=== PATIENT | female | born 1970 | race Caucasian/White ===

== ENCOUNTER → 2018-09-03 08:49 | Outpatient (CLI) | payer OTHER, MEDICAID, SELFPAY ==
[2018-09-03 09:44] LABS: Hemoglobin A1C% w Est Avg Glu 8.9 % (4.0-6.0)
[2018-09-03 09:57] LABS: Alanine Aminotransferase 53 IU/L (9-52); Albumin 4.5 g/dL (3.5-5.0); Albumin Globulin Ratio 1.5 (1.0-2.8); Alkaline Phosphatase 77 U/L (38-126); Aspartate Aminotransferase 30 IU/L (14-36); Bilirubin Total 0.5 mg/dL (0.2-1.3); Blood Urea Nitrogen 14 mg/dL (7-17); Calcium 9.9 mg/dL (8.4-10.2); Carbon Dioxide 26 mmol/L (22-32); Chloride 101 mmol/L (98-107); Cholesterol 250 mg/dL (140-199); Estimated Glomerular Filt Rate > 60.0 mL/min (>60); Globulin 3.1 g/dL (1.7-4.1); Glucose 228 mg/dL (70-100); HDL Cholesterol 41 mg/dL (40-60); HEMOLYSIS < 15 (0-50); LDL Cholesterol Calculated 173 mg/dL (<100); Potassium 4.5 mmol/L (3.4-5.1); Sodium 138 mmol/L (137-145); Total Protein 7.6 g/dL (6.3-8.2); Triglycerides 179 mg/dL (35-150)
[2018-09-03 09:59] LABS: Creatinine Urine Random 183.1 mg/dL
[2018-09-03 10:04] LABS: Microalbumi Creatinin Ratio Ur 31.6 ug/mg CR (<30); Microalbumin Urine Random 5.8 mg/dL (0-1.6)
== END ==
PROVIDERS: PCP Family Medicine; Visit Provider Family Medicine
DX: E11.9 Type 2 diabetes mellitus without complications (principal); E78.5 Hyperlipidemia, unspecified
CPT/HCPCS: 36415; 80053; 80061; 82043; 82570; 83036

== ENCOUNTER 2018-11-11 15:15 | Outpatient (RCR) | payer OTHER, MEDICAID, SELFPAY ==
--- NOTE | 2018-10-07 12:10 | PT.OIE ---
Current Diagnoses Pain in right shoulder (10/07/18) Pain in left shoulder (10/07/18) Strain of muscle(s) and tendon(s) of the rotator cuff of left shoulder, initial encounter (10/07/18) Past Surgical History Status post arthroscopy Status post arthroscopy Status post delivery (09/14/02) Status post delivery (01/12/08) Status post laparoscopic cholecystectomy Status post tubal ligation (11/19/13) Provider Visit Care Team Role Provider Type Heidy Chand MD Attending Provider Physician Primary Care Provider Specialty: Family Practice Address: [address] [place] [address], [facility] Email: [email or web address] Physical Therapy Initial Evaluation PT-OP-A Visit Information Start: 10/07/18 07:31 Freq: Status: Active Protocol: Document 10/07/18 08:20 BS (Rec: 10/07/18 08:16 BS [id number]) Out-Patient Physical Therapy Visit Information Visit Information Visit Type Initial Evaluation Visit Start Time 07:30 Visit Stop Time 08:20 Total Visit Minutes 50 Visit Number 1 Number of [employer] WORKER Visits 0 Evaluation Information Evaluation Date 10/07/18 PT-OP-B Current Condition Start: 10/07/18 07:31 Freq: Status: Active Protocol: Document 10/07/18 08:20 BS (Rec: 10/07/18 07:38 BS [id number]) Current Condition History of Current Condition Onset Date 05/2018 History of Current Condition Pt complains of B anterior shoulder pain with insidious onset that began May 2018 . It began with just L shoulder pain, but pt's R shoulder has begun to hurt in the last 2 months. Pt denies a specific event that caused her pain and initially thought it was due to her bed and sleeping position. Pt has since purchased a new bed and has not had any relief in shoulder pain. Pt denies numbness/tingling in her UEs but states that she has had R carpal tunnel in the past. She states that her pain is greatest with shoulder OH motions and that she prefers to sleep on her L side, which increases her pain. Pt uses homeopathic creams and icy hot on her shoulders before bed, which helps her sleep at night . 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 Pt is R hand dominant. Prior Treatments and Tests No previous injuries to shoulder. Future Testing and Treatments Planned Pt is having R meniscal repair 10/16/18. Treatment Goals Patient/Caregiver Goals reduce pain Prior Functional Status Baseline Function- ADL's Independent Baseline Function- Mobility Independent Baseline Function- Gait Independent without use of AD Baseline Function- Work/School Independent Baseline Function- Recreation/Hobbies Independent with all daily and recreational activities. Baseline Function- Other Independent Current Functional Impairments (Reported) Functional Limitations- ADL's Pt reports she has difficulty sleeping, washing hair, and performing any activities that require OH movement of shoulders due to pain. Functional Limitations- Mobility/Gait No reported limitations with gait. Pain and shoulder weakness with OH shoulder mobility. Functional Limitations- Work/School Pt denies difficulty performing job requirements due to L shoulder pain. Functional Limitations- Recreation/ Limitations in completing Hobbies ground hand that require OH reaching or lifting objects . Functional Limitations- Other sleeping, ground hand, carrying a shopping bag. Pt reports she is unable to perform recreational activities that require use of LUE OH. Personal Factors Other Personal Factors That May Effect DM type II Therapy/Recovery PT-OP-C Subjective Start: 10/07/18 07:31 Freq: Status: Active Protocol: Document 10/07/18 08:20 BS (Rec: 10/07/18 08:35 BS [id number]) OP-PT Subjective Patient Comments Patient Comments Pain in B shoulders, initially began with just L shoulder and has recently noticed R shoulder pain. Gradually worsened since 2018. Patient Reported Progress Worse PT-OP-E Functional Tests Start: 10/07/18 07:31 Freq: Status: Active Protocol: Document 10/07/18 08:20 BS (Rec: 10/07/18 08:58 BS [id number]) Functional Tests Apley's Scratch Test Action 1: The subject is instructed to touch the opposite shoulder with his/her hand. This motion checks Glenohumeral adduction, internal rotation , horizontal adduction and scapular protraction Action 2: The subject is instructed to place his/her arm overhead and reach behind the neck to touch his/her upper back. This motion checks Glenohumeral abduction, external rotation and scapular upward rotation and elevation. Action 3: The subject puts his/her hand on the lower back and reaches upward as far as possible. This motion checks glenohumeral adduction, internal rotation and scapular retraction with downward rotation Action 1- Left + ant. shoulder pain Action 1- Right + ant. shoulder pain Action 2- Left + pain, T1 level Action 2- Right + pain, T4 level Action 3- Left + pain, T12 level Action 3- Right + pain, T10 level PT-OP-F Manual Assessment Start: 10/07/18 07:31 Freq: Status: Active Protocol: Document 10/07/18 08:20 BS (Rec: 10/07/18 08:58 BS [id number]) Manual Assessments Soft Tissue Assessment Soft Tissue Mobility Assessment Mod B upper trap tightness PT-OP-G Mobility & Gait Start: 10/07/18 07:31 Freq: Status: Active Protocol: Document 10/07/18 08:20 BS (Rec: 10/07/18 08:58 BS [id number]) OP Mobility Evaluation Bed Mobility Rolling Independent Supine to and from Sit Independent Transfers Sit to Stand Independent Bed to Chair Transfers Independent with use of B UEs Functional Movements Lifting and Carrying Independent, pt reports that she does have B shoulder pain with lifting and carrying heavy objects. PT-OP-J Posture/Palpation/Skin Start: 10/07/18 07:31 Freq: Status: Active Protocol: Document 10/07/18 08:20 BS (Rec: 10/07/18 08:58 BS [id number]) Posture Evaluation Position Sitting Evaluation View Anterior Head/C-Spine Posture Forward Head Shoulder Posture (L) Rounded (R) Rounded Palpation Assessment Location One Palpation Location Bicipital Tendon Bilaterally Palpation Findings Tenderness Palpation Details B periscapular musculature palpated with no reported tenderness. Supraspinatus tendon and RC muscles palpated with no pain or referral of pain. Pain with palpation to B bicpital tendons and anterior deltoid. Lateral and posterior deltoid palpation negative for pain reproduction . PT-OP-K Range of Motion Start: 10/07/18 07:31 Freq: Status: Active Protocol: Document 10/07/18 08:20 BS (Rec: 10/07/18 08:58 BS [id number]) Shoulder Goniometric Range of Motion Shoulder Measured in Degrees Right Active Testing Position Sitting Flexion 147 Abduction 124 External Rotation at 0 degrees Abduction 71 Internal Rotation Behind Back (text) T10 Left Active Shoulder ROM WFL No Testing Position Sitting Flexion 145 Abduction 115 External Rotation at 0 degrees Abduction 60 Internal Rotation Behind Back (text) T12 Shoulder ROM Limitations Shoulder ROM Limitations Pain Comments Pt B shoulder pain highly irritable with pain reproduction in all ROM testing positions. Elbow/Forearm Range of Motion Elbow/Forearm Measured in Degrees Right Active Elbow/Forearm ROM WFL Yes Left Active Elbow/Forearm ROM WFL Yes Elbow/Forearm ROM Limitations Comments Bilateral flexion, extension grossly WFL and pain-free. PT-OP-L Special Tests Start: 10/07/18 07:31 Freq: Status: Active Protocol: Document 10/07/18 08:20 BS (Rec: 10/07/18 08:58 BS [id number]) Special Tests Shoulder Special Tests Passive ER Rotator Cuff Test Results positive Comments Positive for anterior shoulder pain bilaterally at end range passive ER. L passive ER more limited than R. Speed's Biceps Test Results Negative Comments Strong and non-painful bilaterally. Soriano Raudel Impingement Test Results positive Comments painful to attain position, increased pain in posterior upper arm at end range of testing position with L shoulder. R shoulder painful to attain position. No increased pain during test. Neer Impingement Test Results positive Comments L shoulder painful arc 91-145 deg. R shoulder painful arc 95-147 deg. Empty Can Test Results positive Comments Anterior and lateral shoulder pain bilaterally with empty can testing. More pain with shoulder IR than with neutral position. PT-OP-M Strength Start: 10/07/18 07:31 Freq: Status: Active Protocol: Document 10/07/18 08:20 BS (Rec: 10/07/18 08:58 BS [id number]) Shoulder Strength Shoulder Manual Muscle Testing Right Flexion 4+ Good+ Abduction (C5) 4- Good- External Rotation 4+ Good+ Internal Rotation 4+ Good+ Comments MMT to RUE strong with reproduction of R anterior shoulder with with all MMT. Left Flexion 4+ Good+ Abduction (C5) 4- Good- External Rotation 4- Good- Internal Rotation 4+ Good+ Comments MMT to LUE strong with reproduction of L anterior shoulder with with all MMT. Elbow/Forearm Strength Elbow and Forearm Manual Muscle Testing Right Flexion (C6) 5 Normal Comments No pain Left Flexion (C6) 5 Normal Comments No pain. PT-OP-Q Treatments Start: 10/07/18 07:31 Freq: Status: Active Protocol: Document 10/07/18 08:20 BS (Rec: 10/07/18 08:58 BS [id number]) Therapeutic Exercises Standing Exercises 1 Standing Exercise Name Shoulder isometrics: flex, abd , ext Side left Reps/Minutes x10 PT-OP-R Modalities Start: 10/07/18 07:31 Freq: Status: Active Protocol: Document 10/07/18 08:20 BS (Rec: 10/07/18 08:58 BS [id number]) Hot Pack/Cold Pack Treatment Cold Pack Location B shoulders Patient Position Hooklying Treatment Duration (minutes) 10 Patient Tolerance Good Comments Pt reports less pain following CPs. PT-OP-T Assessment and Plan Start: 10/07/18 07:31 Freq: Status: Active Protocol: Document 10/07/18 08:20 BS (Rec: 10/07/18 08:16 BS [id number]) Physical Therapy Assessment Rehab Potential Rehabilitation Potential Good Evaluation Complexity Number of Personal Factors/Comorbidities 1-2 Number of Body Systems Impaired 1-2 Clinical Presentation at Evaluation Stable Impairments Impairments Activity Tolerance Functional Activities Functional Mobility Pain Posture ROM Soft Tissue Mobility Strength Other Concerns Barriers to Rehabilitation DM type II Goals Three Impairment Strength Wrist Closer Goal (LTG) Bilateral shoulder MMT for flexion, abduction, scaption, and ER/IR to be at least a 4+/ 5 and pain-free. LTG Duration 10 weeks Two Impairment Pain Short Term Goal (STG) Pt to report <4/10 L shoulder pain with flex, abd, ext isometrics, demonstrating reduction in irritability of symptoms. STG Duration functional mobility Wrist Closer Goal (LTG) Pt to report ability to hook/ unhook bra behind her back without B shoulder pain. LTG Duration 10 weeks One Impairment lack of HEP Short Term Goal (STG) Pt will be independent with a HEP to maximize rehabiliation potential outside of formal PT sessions. STG Duration 3 weeks Wrist Closer Goal (LTG) Bilateral shoulder flexion AROM to improve to at least 150 deg and pain-free so that Nilda is able to complete activtiies that require reaching OH. LTG Duration 10 weeks Assessment Summary Assessment Nilda is a 48 year old female who presents to PT with complaints of bilateral anterior shoulder pain that increases with OH shoulder movement. Patient's symptoms are highly irritable as of current, pain reproduction with all manual muscle testing and special tests for RC and subacromial impingement. Due to shoulder pain, pt has difficulty sleeping, lifting/ carring objects, and performing ADLs that require reaching and OH shoulder movements. Pt benefits from skilled physical therapy to reduce shoulder pain, strengthen the rotator cuff, and improve posture to promote return to PLOF without pain and weakness. Physical Therapy Plan Frequency and Duration Frequency of Treatment 1-2x/week Plan of Care Start Date 10/07/18 Plan of Care End Date 12/16/18 Therapeutic Interventions Therapeutic Interventions Home Exercise Program Manual Therapy Patient/Caregiver Education Self-Care/Home Management Soft Tissue Mobilization Taping Therapeutic Activities Therapeutic Exercises Modalities Cold Pack/Ice Massage Electric Stimulation Hot Packs Iontophoresis Ultrasound Next Visit Focus/Plan Next Note Type Treatment Note Next Visit Plan Begin with arm bike for cui, continue isometrics and light pain free resistance exercises as tolerated by pt.
--- NOTE | 2018-10-07 12:17 | PT.OPPOC ---
Current Diagnoses Pain in right shoulder (10/07/18) Pain in left shoulder (10/07/18) Strain of muscle(s) and tendon(s) of the rotator cuff of left shoulder, initial encounter (10/07/18) Provider Visit Care Team Role Provider Type Heidy Chand MD Attending Provider Physician Primary Care Provider Specialty: Family Practice Address: [address] [place] [address], [id number] Email: [email or web address] Plan Of Care PT-OP-T Assessment and Plan Start: 10/07/18 07:31 Freq: Status: Active Protocol: Document 10/07/18 08:20 BS (Rec: 10/07/18 08:16 BS [email or web address]) Physical Therapy Assessment Rehab Potential Rehabilitation Potential Good Evaluation Complexity Number of Personal Factors/Comorbidities 1-2 Number of Body Systems Impaired 1-2 Clinical Presentation at Evaluation Stable Impairments Impairments Activity Tolerance Functional Activities Functional Mobility Pain Posture ROM Soft Tissue Mobility Strength Other Concerns Barriers to Rehabilitation DM type II Goals Three Impairment Strength Senior Living Goal (LTG) Bilateral shoulder MMT for flexion, abduction, scaption, and ER/IR to be at least a 4+/ 5 and pain-free. LTG Duration 10 weeks Two Impairment Pain Short Term Goal (STG) Pt to report <4/10 L shoulder pain with flex, abd, ext isometrics, demonstrating reduction in irritability of symptoms. STG Duration functional mobility Senior Living Goal (LTG) Pt to report ability to hook/ unhook bra behind her back without B shoulder pain. LTG Duration 10 weeks One Impairment lack of HEP Short Term Goal (STG) Pt will be independent with a HEP to maximize rehabiliation potential outside of formal PT sessions. STG Duration 3 weeks Senior Living Goal (LTG) Bilateral shoulder flexion AROM to improve to at least 150 deg and pain-free so that Nilda is able to complete activtiies that require reaching OH. LTG Duration 10 weeks Assessment Summary Assessment Nilda is a 48 year old female who presents to PT with complaints of bilateral anterior shoulder pain that increases with OH shoulder movement. Patient's symptoms are highly irritable as of current, pain reproduction with all manual muscle testing and special tests for RC and subacromial impingement. Due to shoulder pain, pt has difficulty sleeping, lifting/ carring objects, and performing ADLs that require reaching and OH shoulder movements. Pt benefits from skilled physical therapy to reduce shoulder pain, strengthen the rotator cuff, and improve posture to promote return to PLOF without pain and weakness. Physical Therapy Plan Frequency and Duration Frequency of Treatment 1-2x/week Plan of Care Start Date 10/07/18 Plan of Care End Date 12/16/18 Therapeutic Interventions Therapeutic Interventions Home Exercise Program Manual Therapy Patient/Caregiver Education Self-Care/Home Management Soft Tissue Mobilization Taping Therapeutic Activities Therapeutic Exercises Modalities Cold Pack/Ice Massage Electric Stimulation Hot Packs Iontophoresis Ultrasound Next Visit Focus/Plan Next Note Type Treatment Note Next Visit Plan Begin with arm bike for cui, continue isometrics and light pain free resistance exercises as tolerated by pt. Plan of Care Dates Plan of Care Start Date 10/07/18 Plan of Care End Date 12/16/18 Please Sign and Return: I have reviewed this Plan of Care and certify that the skilled therapy services above are required to meet the patient?s needs. Physician Signature Date Printed Name and Credentials Clinical Instructor Signature Printed Name and Credentials
--- NOTE | 2018-10-13 15:40 | PT.OTN ---
Current Diagnoses Pain in left shoulder (10/13/18) Strain of muscle(s) and tendon(s) of the rotator cuff of left shoulder, initial encounter (10/13/18) Physical Therapy Treatment Note PT-OP-A Visit Information Start: 10/07/18 07:31 Freq: Status: Active Protocol: Document 10/13/18 08:15 BS (Rec: 10/13/18 07:41 BS [id number]) Out-Patient Physical Therapy Visit Information Visit Information Visit Type Treatment Note Visit Start Time 07:35 Visit Stop Time 08:15 Total Visit Minutes 40 Visit Number 2 Number of PARK INTERPRETIVE RANGER Visits 0 Evaluation Information Evaluation Date 10/07/18 PT-OP-B Current Condition Start: 10/07/18 07:31 Freq: Status: Active Protocol: Document 10/07/18 08:20 BS (Rec: 10/07/18 07:38 BS [id number]) Current Condition History of Current Condition Onset Date 05/2018 History of Current Condition Pt complains of B anterior shoulder pain with insidious onset that began May 2018 . It began with just L shoulder pain, but pt's R shoulder has begun to hurt in the last 2 months. Pt denies a specific event that caused her pain and initially thought it was due to her bed and sleeping position. Pt has since purchased a new bed and has not had any relief in shoulder pain. Pt denies numbness/tingling in her UEs but states that she has had R carpal tunnel in the past. She states that her pain is greatest with shoulder OH motions and that she prefers to sleep on her L side, which increases her pain. Pt uses homeopathic creams and icy hot on her shoulders before bed, which helps her sleep at night . 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 Pt is R hand dominant. Prior Treatments and Tests No previous injuries to shoulder. Future Testing and Treatments Planned Pt is having R meniscal repair 10/16/18. Treatment Goals Patient/Caregiver Goals reduce pain Prior Functional Status Baseline Function- ADL's Independent Baseline Function- Mobility Independent Baseline Function- Gait Independent without use of AD Baseline Function- Work/School Independent Baseline Function- Recreation/Hobbies Independent with all daily and recreational activities. Baseline Function- Other Independent Current Functional Impairments (Reported) Functional Limitations- ADL's Pt reports she has difficulty sleeping, washing hair, and performing any activities that require OH movement of shoulders due to pain. Functional Limitations- Mobility/Gait No reported limitations with gait. Pain and shoulder weakness with OH shoulder mobility. Functional Limitations- Work/School Pt denies difficulty performing job requirements due to L shoulder pain. Functional Limitations- Recreation/ Limitations in completing Hobbies medical csr that require OH reaching or lifting objects . Functional Limitations- Other sleeping, medical csr, carrying a shopping bag. Pt reports she is unable to perform recreational activities that require use of LUE OH. Personal Factors Other Personal Factors That May Effect DM type II Therapy/Recovery PT-OP-C Subjective Start: 10/07/18 07:31 Freq: Status: Active Protocol: Document 10/13/18 08:15 BS (Rec: 10/13/18 07:39 BS [id number]) OP-PT Subjective Patient Comments Patient Comments Pt reports that she was sore after IE and that she has been doing isometrics. Abduction is most painful but she is paying attention to her mechanics. PT-OP-E Functional Tests Start: 10/07/18 07:31 Freq: Status: Active Protocol: Document 10/07/18 08:20 BS (Rec: 10/07/18 08:58 BS [id number]) Functional Tests Apley's Scratch Test Action 1: The subject is instructed to touch the opposite shoulder with his/her hand. This motion checks Glenohumeral adduction, internal rotation , horizontal adduction and scapular protraction Action 2: The subject is instructed to place his/her arm overhead and reach behind the neck to touch his/her upper back. This motion checks Glenohumeral abduction, external rotation and scapular upward rotation and elevation. Action 3: The subject puts his/her hand on the lower back and reaches upward as far as possible. This motion checks glenohumeral adduction, internal rotation and scapular retraction with downward rotation Action 1- Left + ant. shoulder pain Action 1- Right + ant. shoulder pain Action 2- Left + pain, T1 level Action 2- Right + pain, T4 level Action 3- Left + pain, T12 level Action 3- Right + pain, T10 level PT-OP-F Manual Assessment Start: 10/07/18 07:31 Freq: Status: Active Protocol: Document 10/07/18 08:20 BS (Rec: 10/07/18 08:58 BS [id number]) Manual Assessments Soft Tissue Assessment Soft Tissue Mobility Assessment Mod B upper trap tightness PT-OP-G Mobility & Gait Start: 10/07/18 07:31 Freq: Status: Active Protocol: Document 10/07/18 08:20 BS (Rec: 10/07/18 08:58 BS [id number]) OP Mobility Evaluation Bed Mobility Rolling Independent Supine to and from Sit Independent Transfers Sit to Stand Independent Bed to Chair Transfers Independent with use of B UEs Functional Movements Lifting and Carrying Independent, pt reports that she does have B shoulder pain with lifting and carrying heavy objects. PT-OP-J Posture/Palpation/Skin Start: 10/07/18 07:31 Freq: Status: Active Protocol: Document 10/07/18 08:20 BS (Rec: 10/07/18 08:58 BS [id number]) Posture Evaluation Position Sitting Evaluation View Anterior Head/C-Spine Posture Forward Head Shoulder Posture (L) Rounded (R) Rounded Palpation Assessment Location One Palpation Location Bicipital Tendon Bilaterally Palpation Findings Tenderness Palpation Details B periscapular musculature palpated with no reported tenderness. Supraspinatus tendon and RC muscles palpated with no pain or referral of pain. Pain with palpation to B bicpital tendons and anterior deltoid. Lateral and posterior deltoid palpation negative for pain reproduction . PT-OP-K Range of Motion Start: 10/07/18 07:31 Freq: Status: Active Protocol: Document 10/07/18 08:20 BS (Rec: 10/07/18 08:58 BS [id number]) Shoulder Goniometric Range of Motion Shoulder Measured in Degrees Right Active Testing Position Sitting Flexion 147 Abduction 124 External Rotation at 0 degrees Abduction 71 Internal Rotation Behind Back (text) T10 Left Active Shoulder ROM WFL No Testing Position Sitting Flexion 145 Abduction 115 External Rotation at 0 degrees Abduction 60 Internal Rotation Behind Back (text) T12 Shoulder ROM Limitations Shoulder ROM Limitations Pain Comments Pt B shoulder pain highly irritable with pain reproduction in all ROM testing positions. Elbow/Forearm Range of Motion Elbow/Forearm Measured in Degrees Right Active Elbow/Forearm ROM WFL Yes Left Active Elbow/Forearm ROM WFL Yes Elbow/Forearm ROM Limitations Comments Bilateral flexion, extension grossly WFL and pain-free. PT-OP-L Special Tests Start: 04/24/19 07:31 Freq: Status: Active Protocol: Document 10/07/18 08:20 BS (Rec: 10/07/18 08:58 BS [id number]) Special Tests Shoulder Special Tests Passive ER Rotator Cuff Test Results positive Comments Positive for anterior shoulder pain bilaterally at end range passive ER. L passive ER more limited than R. Speed's Biceps Test Results Negative Comments Strong and non-painful bilaterally. Soriano Raudel Impingement Test Results positive Comments painful to attain position, increased pain in posterior upper arm at end range of testing position with L shoulder. R shoulder painful to attain position. No increased pain during test. Neer Impingement Test Results positive Comments L shoulder painful arc 91-145 deg. R shoulder painful arc 95-147 deg. Empty Can Test Results positive Comments Anterior and lateral shoulder pain bilaterally with empty can testing. More pain with shoulder IR than with neutral position. PT-OP-M Strength Start: 10/07/18 07:31 Freq: Status: Active Protocol: Document 10/07/18 08:20 BS (Rec: 10/07/18 08:58 BS [id number]) Shoulder Strength Shoulder Manual Muscle Testing Right Flexion 4+ Good+ Abduction (C5) 4- Good- External Rotation 4+ Good+ Internal Rotation 4+ Good+ Comments MMT to RUE strong with reproduction of R anterior shoulder with with all MMT. Left Flexion 4+ Good+ Abduction (C5) 4- Good- External Rotation 4- Good- Internal Rotation 4+ Good+ Comments MMT to LUE strong with reproduction of L anterior shoulder with with all MMT. Elbow/Forearm Strength Elbow and Forearm Manual Muscle Testing Right Flexion (C6) 5 Normal Comments No pain Left Flexion (C6) 5 Normal Comments No pain. PT-OP-Q Treatments Start: 10/07/18 07:31 Freq: Status: Active Protocol: Document 10/13/18 08:15 BS (Rec: 10/13/18 13:39 BS [id number]) Cardio Equipment Upper Body Ergometer (UBE) Duration (Minutes) 4 Seat Position 9 Height 2.5 Other 2' forward, 2' backward Therapeutic Exercises Supine Exercises 1 Supine Exercise Name Serratus Punches Resistance no weight Reps/Minutes 2x10 Comments VCs for technique, below 90 deg flex to avoid pain Standing Exercises 7 Standing Exercise Name Shoulder ball circles, CW/CCW Side left Equipment Used small ball, shld at 80 deg flex Reps/Minutes x20 each direction Comments light pressure into ball for protraction 6 Standing Exercise Name Lat pulldowns Side bilateral Equipment Used #1 band Reps/Minutes x15 5 Standing Exercise Name Scapular Retraction Side bilateral Equipment Used #1 band Reps/Minutes x15 Comments some L shoulder pain with this 4 Standing Exercise Name AROM B shld abduction to 90 deg Reps/Minutes x15 Comments VCs to remain in pain-free range 3 Standing Exercise Name Cane flex to 90 deg Reps/Minutes x15 Comments VCs to remain in pain-free range 2 Standing Exercise Name Wall walks Side left Reps/Minutes x12 Comments VCs to remain in pain-free range 1 Standing Exercise Name Shoulder isometrics: flex, abd , ext, ER, IR Side left Reps/Minutes x15 each, 5 hold PT-OP-R Modalities Start: 10/07/18 07:31 Freq: Status: Active Protocol: Document 10/13/18 08:15 BS (Rec: 10/13/18 13:39 BS [id number]) Hot Pack/Cold Pack Treatment Cold Pack Location L shoulder Patient Position Hooklying Treatment Duration (minutes) 10 Patient Tolerance Good Comments Pt reports less pain following CP. PT-OP-T Assessment and Plan Start: 10/07/18 07:31 Freq: Status: Active Protocol: Document 10/13/18 08:15 BS (Rec: 10/13/18 13:39 BS [email or web address]) Physical Therapy Assessment Assessment Summary Assessment Pt to PT today with less irritable symptoms than at IE. She tolerated light GH and postural strengthening exercises with little increase in pain levels. Both shoulders are symptomatic and will be treated. Physical Therapy Plan Next Visit Focus/Plan Next Note Type Treatment Note Next Visit Plan Continue with light GH and postural strengthening, both shoulders instead of just L. signed POC to treat both.
--- NOTE | 2018-10-15 14:47 | PT.OTN ---
Current Diagnoses Pain in left shoulder (10/15/18) Strain of muscle(s) and tendon(s) of the rotator cuff of left shoulder, initial encounter (10/15/18) Physical Therapy Treatment Note PT-OP-A Visit Information Start: 10/07/18 07:31 Freq: Status: Active Protocol: Document 10/15/18 09:09 BS (Rec: 10/15/18 09:46 BS [id number]) Out-Patient Physical Therapy Visit Information Visit Information Visit Type Treatment Note Visit Start Time 07:30 Visit Stop Time 08:25 Total Visit Minutes 55 Visit Number 3 Number of TERRITORY DEVELOPMENT MANAGER Visits 0 Evaluation Information Evaluation Date 10/07/18 PT-OP-B Current Condition Start: 10/07/18 07:31 Freq: Status: Active Protocol: Document 10/07/18 08:20 BS (Rec: 10/07/18 07:38 BS [id number]) Current Condition History of Current Condition Onset Date 05/2018 History of Current Condition Pt complains of B anterior shoulder pain with insidious onset that began May 2018 . It began with just L shoulder pain, but pt's R shoulder has begun to hurt in the last 2 months. Pt denies a specific event that caused her pain and initially thought it was due to her bed and sleeping position. Pt has since purchased a new bed and has not had any relief in shoulder pain. Pt denies numbness/tingling in her UEs but states that she has had R carpal tunnel in the past. She states that her pain is greatest with shoulder OH motions and that she prefers to sleep on her L side, which increases her pain. Pt uses homeopathic creams and icy hot on her shoulders before bed, which helps her sleep at night . 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 Pt is R hand dominant. Prior Treatments and Tests No previous injuries to shoulder. Future Testing and Treatments Planned Pt is having R meniscal repair 10/16/18. Treatment Goals Patient/Caregiver Goals reduce pain Prior Functional Status Baseline Function- ADL's Independent Baseline Function- Mobility Independent Baseline Function- Gait Independent without use of AD Baseline Function- Work/School Independent Baseline Function- Recreation/Hobbies Independent with all daily and recreational activities. Baseline Function- Other Independent Current Functional Impairments (Reported) Functional Limitations- ADL's Pt reports she has difficulty sleeping, washing hair, and performing any activities that require OH movement of shoulders due to pain. Functional Limitations- Mobility/Gait No reported limitations with gait. Pain and shoulder weakness with OH shoulder mobility. Functional Limitations- Work/School Pt denies difficulty performing job requirements due to L shoulder pain. 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 Pt reports she is unable to perform recreational activities that require use of LUE OH. Personal Factors Other Personal Factors That May Effect DM type II Therapy/Recovery PT-OP-C Subjective Start: 10/07/18 07:31 Freq: Status: Active Protocol: Document 10/15/18 09:09 BS (Rec: 10/15/18 09:46 BS [id number]) OP-PT Subjective Patient Comments Patient Comments Pt reports that she did have some residual muscle soreness following last session, lasted about a day. She is feeling better today. PT-OP-E Functional Tests Start: 10/07/18 07:31 Freq: Status: Active Protocol: Document 10/07/18 08:20 BS (Rec: 10/07/18 08:58 BS [id number]) Functional Tests Apley's Scratch Test Action 1: The subject is instructed to touch the opposite shoulder with his/her hand. This motion checks Glenohumeral adduction, internal rotation , horizontal adduction and scapular protraction Action 2: The subject is instructed to place his/her arm overhead and reach behind the neck to touch his/her upper back. This motion checks Glenohumeral abduction, external rotation and scapular upward rotation and elevation. Action 3: The subject puts his/her hand on the lower back and reaches upward as far as possible. This motion checks glenohumeral adduction, internal rotation and scapular retraction with downward rotation Action 1- Left + ant. shoulder pain Action 1- Right + ant. shoulder pain Action 2- Left + pain, T1 level Action 2- Right + pain, T4 level Action 3- Left + pain, T12 level Action 3- Right + pain, T10 level PT-OP-F Manual Assessment Start: 10/07/18 07:31 Freq: Status: Active Protocol: Document 10/07/18 08:20 BS (Rec: 10/07/18 08:58 BS [id number]) Manual Assessments Soft Tissue Assessment Soft Tissue Mobility Assessment Mod B upper trap tightness PT-OP-G Mobility & Gait Start: 10/07/18 07:31 Freq: Status: Active Protocol: Document 10/07/18 08:20 BS (Rec: 10/07/18 08:58 BS [id number]) OP Mobility Evaluation Bed Mobility Rolling Independent Supine to and from Sit Independent Transfers Sit to Stand Independent Bed to Chair Transfers Independent with use of B UEs Functional Movements Lifting and Carrying Independent, pt reports that she does have B shoulder pain with lifting and carrying heavy objects. PT-OP-J Posture/Palpation/Skin Start: 10/07/18 07:31 Freq: Status: Active Protocol: Document 10/07/18 08:20 BS (Rec: 10/07/18 08:58 BS [id number]) Posture Evaluation Position Sitting Evaluation View Anterior Head/C-Spine Posture Forward Head Shoulder Posture (L) Rounded (R) Rounded Palpation Assessment Location One Palpation Location Bicipital Tendon Bilaterally Palpation Findings Tenderness Palpation Details B periscapular musculature palpated with no reported tenderness. Supraspinatus tendon and RC muscles palpated with no pain or referral of pain. Pain with palpation to B bicpital tendons and anterior deltoid. Lateral and posterior deltoid palpation negative for pain reproduction . PT-OP-K Range of Motion Start: 10/07/18 07:31 Freq: Status: Active Protocol: Document 10/07/18 08:20 BS (Rec: 10/07/18 08:58 BS [id number]) Shoulder Goniometric Range of Motion Shoulder Measured in Degrees Right Active Testing Position Sitting Flexion 147 Abduction 124 External Rotation at 0 degrees Abduction 71 Internal Rotation Behind Back (text) T10 Left Active Shoulder ROM WFL No Testing Position Sitting Flexion 145 Abduction 115 External Rotation at 0 degrees Abduction 60 Internal Rotation Behind Back (text) T12 Shoulder ROM Limitations Shoulder ROM Limitations Pain Comments Pt B shoulder pain highly irritable with pain reproduction in all ROM testing positions. Elbow/Forearm Range of Motion Elbow/Forearm Measured in Degrees Right Active Elbow/Forearm ROM WFL Yes Left Active Elbow/Forearm ROM WFL Yes Elbow/Forearm ROM Limitations Comments Bilateral flexion, extension grossly WFL and pain-free. PT-OP-L Special Tests Start: 10/07/18 07:31 Freq: Status: Active Protocol: Document 10/07/18 08:20 BS (Rec: 10/07/18 08:58 BS [id number]) Special Tests Shoulder Special Tests Passive ER Rotator Cuff Test Results positive Comments Positive for anterior shoulder pain bilaterally at end range passive ER. L passive ER more limited than R. Speed's Biceps Test Results Negative Comments Strong and non-painful bilaterally. Soriano Raudel Impingement Test Results positive Comments painful to attain position, increased pain in posterior upper arm at end range of testing position with L shoulder. R shoulder painful to attain position. No increased pain during test. Neer Impingement Test Results positive Comments L shoulder painful arc 91-145 deg. R shoulder painful arc 95-147 deg. Empty Can Test Results positive Comments Anterior and lateral shoulder pain bilaterally with empty can testing. More pain with shoulder IR than with neutral position. PT-OP-M Strength Start: 10/07/18 07:31 Freq: Status: Active Protocol: Document 10/07/18 08:20 BS (Rec: 10/07/18 08:58 BS [id number]) Shoulder Strength Shoulder Manual Muscle Testing Right Flexion 4+ Good+ Abduction (C5) 4- Good- External Rotation 4+ Good+ Internal Rotation 4+ Good+ Comments MMT to RUE strong with reproduction of R anterior shoulder with with all MMT. Left Flexion 4+ Good+ Abduction (C5) 4- Good- External Rotation 4- Good- Internal Rotation 4+ Good+ Comments MMT to LUE strong with reproduction of L anterior shoulder with with all MMT. Elbow/Forearm Strength Elbow and Forearm Manual Muscle Testing Right Flexion (C6) 5 Normal Comments No pain Left Flexion (C6) 5 Normal Comments No pain. PT-OP-Q Treatments Start: 10/07/18 07:31 Freq: Status: Active Protocol: Document 10/15/18 09:09 BS (Rec: 10/15/18 10:01 BS [id number]) Cardio Equipment Upper Body Ergometer (UBE) Duration (Minutes) 4 Seat Position 9 Height 2.5 Other 2' forward, 2' backward Therapeutic Exercises Supine Exercises 1 Supine Exercise Name Serratus Punches Side bilateral Resistance no weight Reps/Minutes 2x10 Comments tolerated 90 deg flex position today Standing Exercises 8 Standing Exercise Name Scaption to 90 deg AROM Side bilateral Equipment Used no wt, 1# Reps/Minutes x10, x10 7 Standing Exercise Name Shoulder ball circles, CW/CCW Side bilateral Equipment Used small ball, shld at 80 deg flex Reps/Minutes x20 each direction Comments light pressure into ball for protraction 6 Standing Exercise Name Lat pulldowns Side bilateral Equipment Used #1 band Reps/Minutes 2x10 5 Standing Exercise Name Scapular Retraction Side bilateral Equipment Used #1 band Reps/Minutes x15 Comments some L shoulder pain with this 4 Standing Exercise Name AROM B shld abduction to 90 deg Equipment Used no weight, 1# Reps/Minutes x10, x10 Comments VCs to remain in pain-free range 3 Standing Exercise Name Cane flex to 90 deg Side bilateral Reps/Minutes x15 Comments pain free range 2 Standing Exercise Name Wall walks Side bilateral Reps/Minutes x12 Comments VCs to remain in pain-free range 1 Standing Exercise Name Shoulder isometrics: flex, abd , ext, ER, IR Side left Reps/Minutes x15 each, 5 hold PT-OP-R Modalities Start: 10/07/18 07:31 Freq: Status: Active Protocol: Document 10/15/18 09:09 BS (Rec: 10/15/18 13:06 BS [email or web address]) Hot Pack/Cold Pack Treatment Cold Pack Location B shoulders Patient Position Hooklying Treatment Duration (minutes) 10 Patient Tolerance Good Comments Pt continues to report benefits from CP at end of session. PT-OP-T Assessment and Plan Start: 10/07/18 07:31 Freq: Status: Active Protocol: Document 10/15/18 09:09 BS (Rec: 10/15/18 13:06 BS [email or web address]) Physical Therapy Assessment Assessment Summary Assessment Continued with pain free AROM and light strengthening for RC and postural muscles bilaterally. Will continue to progress as able. Pt has B shoulder pain with elevation > 90 deg. Physical Therapy Plan Next Visit Focus/Plan Next Note Type Treatment Note Next Visit Plan Progress strenthening as able, trial I, Y, T and sidelying ER next visit.
--- NOTE | 2018-10-21 15:31 | PT.OTN ---
Current Diagnoses Pain in left shoulder (10/21/18) Strain of muscle(s) and tendon(s) of the rotator cuff of left shoulder, initial encounter (10/21/18) Physical Therapy Treatment Note PT-OP-A Visit Information Start: 10/07/18 07:31 Freq: Status: Active Protocol: Document 10/21/18 14:30 BS (Rec: 10/21/18 14:41 BS [id number]) Out-Patient Physical Therapy Visit Information Visit Information Visit Type Treatment Note Visit Start Time 14:35 Visit Stop Time 15:25 Total Visit Minutes 50 Visit Number 4 Number of ASIAN [employer] CURATOR Visits 0 Evaluation Information Evaluation Date 10/07/18 PT-OP-B Current Condition Start: 10/07/18 07:31 Freq: Status: Active Protocol: Document 10/07/18 08:20 BS (Rec: 10/07/18 07:38 BS [id number]) Current Condition History of Current Condition Onset Date 05/2018 History of Current Condition Pt complains of B anterior shoulder pain with insidious onset that began May 2018 . It began with just L shoulder pain, but pt's R shoulder has begun to hurt in the last 2 months. Pt denies a specific event that caused her pain and initially thought it was due to her bed and sleeping position. Pt has since purchased a new bed and has not had any relief in shoulder pain. Pt denies numbness/tingling in her UEs but states that she has had R carpal tunnel in the past. She states that her pain is greatest with shoulder OH motions and that she prefers to sleep on her L side, which increases her pain. Pt uses homeopathic creams and icy hot on her shoulders before bed, which helps her sleep at night . 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 Pt is R hand dominant. Prior Treatments and Tests No previous injuries to shoulder. Future Testing and Treatments Planned Pt is having R meniscal repair 10/16/18. Treatment Goals Patient/Caregiver Goals reduce pain Prior Functional Status Baseline Function- ADL's Independent Baseline Function- Mobility Independent Baseline Function- Gait Independent without use of AD Baseline Function- Work/School Independent Baseline Function- Recreation/Hobbies Independent with all daily and recreational activities. Baseline Function- Other Independent Current Functional Impairments (Reported) Functional Limitations- ADL's Pt reports she has difficulty sleeping, washing hair, and performing any activities that require OH movement of shoulders due to pain. Functional Limitations- Mobility/Gait No reported limitations with gait. Pain and shoulder weakness with OH shoulder mobility. Functional Limitations- Work/School Pt denies difficulty performing job requirements due to L shoulder pain. 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 Pt reports she is unable to perform recreational activities that require use of LUE OH. Personal Factors Other Personal Factors That May Effect DM type II Therapy/Recovery PT-OP-C Subjective Start: 10/07/18 07:31 Freq: Status: Active Protocol: Document 10/21/18 14:30 BS (Rec: 10/21/18 14:41 BS [id number]) OP-PT Subjective Patient Comments Patient Comments Pt states that both shoulders have been really sore since last visit and continue to be today. She has been unable to pull shirt over her head to get dressed. Has been icing daily and cut back on reps of HEP. PT-OP-E Functional Tests Start: 10/07/18 07:31 Freq: Status: Active Protocol: Document 10/07/18 08:20 BS (Rec: 10/07/18 08:58 BS [id number]) Functional Tests Apley's Scratch Test Action 1: The subject is instructed to touch the opposite shoulder with his/her hand. This motion checks Glenohumeral adduction, internal rotation , horizontal adduction and scapular protraction Action 2: The subject is instructed to place his/her arm overhead and reach behind the neck to touch his/her upper back. This motion checks Glenohumeral abduction, external rotation and scapular upward rotation and elevation. Action 3: The subject puts his/her hand on the lower back and reaches upward as far as possible. This motion checks glenohumeral adduction, internal rotation and scapular retraction with downward rotation Action 1- Left + ant. shoulder pain Action 1- Right + ant. shoulder pain Action 2- Left + pain, T1 level Action 2- Right + pain, T4 level Action 3- Left + pain, T12 level Action 3- Right + pain, T10 level PT-OP-F Manual Assessment Start: 10/07/18 07:31 Freq: Status: Active Protocol: Document 10/07/18 08:20 BS (Rec: 10/07/18 08:58 BS [id number]) Manual Assessments Soft Tissue Assessment Soft Tissue Mobility Assessment Mod B upper trap tightness PT-OP-G Mobility & Gait Start: 10/07/18 07:31 Freq: Status: Active Protocol: Document 10/07/18 08:20 BS (Rec: 10/07/18 08:58 BS [id number]) OP Mobility Evaluation Bed Mobility Rolling Independent Supine to and from Sit Independent Transfers Sit to Stand Independent Bed to Chair Transfers Independent with use of B UEs Functional Movements Lifting and Carrying Independent, pt reports that she does have B shoulder pain with lifting and carrying heavy objects. PT-OP-J Posture/Palpation/Skin Start: 10/07/18 07:31 Freq: Status: Active Protocol: Document 10/07/18 08:20 BS (Rec: 10/07/18 08:58 BS [id number]) Posture Evaluation Position Sitting Evaluation View Anterior Head/C-Spine Posture Forward Head Shoulder Posture (L) Rounded (R) Rounded Palpation Assessment Location One Palpation Location Bicipital Tendon Bilaterally Palpation Findings Tenderness Palpation Details B periscapular musculature palpated with no reported tenderness. Supraspinatus tendon and RC muscles palpated with no pain or referral of pain. Pain with palpation to B bicpital tendons and anterior deltoid. Lateral and posterior deltoid palpation negative for pain reproduction . PT-OP-K Range of Motion Start: 10/07/18 07:31 Freq: Status: Active Protocol: Document 10/07/18 08:20 BS (Rec: 10/07/18 08:58 BS [id number]) Shoulder Goniometric Range of Motion Shoulder Measured in Degrees Right Active Testing Position Sitting Flexion 147 Abduction 124 External Rotation at 0 degrees Abduction 71 Internal Rotation Behind Back (text) T10 Left Active Shoulder ROM WFL No Testing Position Sitting Flexion 145 Abduction 115 External Rotation at 0 degrees Abduction 60 Internal Rotation Behind Back (text) T12 Shoulder ROM Limitations Shoulder ROM Limitations Pain Comments Pt B shoulder pain highly irritable with pain reproduction in all ROM testing positions. Elbow/Forearm Range of Motion Elbow/Forearm Measured in Degrees Right Active Elbow/Forearm ROM WFL Yes Left Active Elbow/Forearm ROM WFL Yes Elbow/Forearm ROM Limitations Comments Bilateral flexion, extension grossly WFL and pain-free. PT-OP-L Special Tests Start: 10/07/18 07:31 Freq: Status: Active Protocol: Document 10/07/18 08:20 BS (Rec: 10/07/18 08:58 BS [id number]) Special Tests Shoulder Special Tests Passive ER Rotator Cuff Test Results positive Comments Positive for anterior shoulder pain bilaterally at end range passive ER. L passive ER more limited than R. Speed's Biceps Test Results Negative Comments Strong and non-painful bilaterally. Soriano Raudel Impingement Test Results positive Comments painful to attain position, increased pain in posterior upper arm at end range of testing position with L shoulder. R shoulder painful to attain position. No increased pain during test. Neer Impingement Test Results positive Comments L shoulder painful arc 91-145 deg. R shoulder painful arc 95-147 deg. Empty Can Test Results positive Comments Anterior and lateral shoulder pain bilaterally with empty can testing. More pain with shoulder IR than with neutral position. PT-OP-M Strength Start: 10/07/18 07:31 Freq: Status: Active Protocol: Document 10/07/18 08:20 BS (Rec: 10/07/18 08:58 BS [id number]) Shoulder Strength Shoulder Manual Muscle Testing Right Flexion 4+ Good+ Abduction (C5) 4- Good- External Rotation 4+ Good+ Internal Rotation 4+ Good+ Comments MMT to RUE strong with reproduction of R anterior shoulder with with all MMT. Left Flexion 4+ Good+ Abduction (C5) 4- Good- External Rotation 4- Good- Internal Rotation 4+ Good+ Comments MMT to LUE strong with reproduction of L anterior shoulder with with all MMT. Elbow/Forearm Strength Elbow and Forearm Manual Muscle Testing Right Flexion (C6) 5 Normal Comments No pain Left Flexion (C6) 5 Normal Comments No pain. PT-OP-Q Treatments Start: 10/07/18 07:31 Freq: Status: Active Protocol: Document 10/21/18 14:30 BS (Rec: 10/21/18 15:25 BS [id number]) Cardio Equipment Upper Body Ergometer (UBE) Duration (Minutes) 4 Seat Position 9 Height 2.5 Other 2' forward, 2' backward Therapeutic Exercises Supine Exercises 1 Supine Exercise Name Serratus Punches Side left Resistance no weight Reps/Minutes x15 Comments @ 75 deg flexion. L only, R painful Prone Exercises 2 Prone Exercise Name Shoulder Extension Side bilateral Equipment Used 0#, 1# Reps/Minutes x12, x12 1 Prone Exercise Name Prone Rows Side bilateral Equipment Used 0#, 1# Reps/Minutes x12, x12 Standing Exercises 7 Standing Exercise Name Shoulder ball circles, CW/CCW Side bilateral Equipment Used small ball, shld at 80 deg flex Reps/Minutes x15 each direction Comments light pressure into ball for protraction 5 Standing Exercise Name Scapular Retraction Side bilateral Equipment Used no resistance today Reps/Minutes x15 3 Standing Exercise Name Cane flex to 90 deg Side bilateral Comments attempted, painful today bilaterally. 2 Standing Exercise Name Wall walks Side bilateral Reps/Minutes x10 each Comments painful beg. at 70 deg today 1 Standing Exercise Name Shoulder isometrics: flex/ER/ IR Side bilateral Equipment Used also with elbow flex isometric today Reps/Minutes x12 each Comments supine with manual resistance PT-OP-R Modalities Start: 10/07/18 07:31 Freq: Status: Active Protocol: Document 10/21/18 14:30 BS (Rec: 10/21/18 15:25 BS [id number]) Hot Pack/Cold Pack Treatment Cold Pack Location B shoulders Patient Position Hooklying Treatment Duration (minutes) 10 Patient Tolerance Good PT-OP-T Assessment and Plan Start: 10/07/18 07:31 Freq: Status: Active Protocol: Document 10/21/18 14:30 BS (Rec: 10/21/18 15:25 BS [id number]) Physical Therapy Assessment Assessment Summary Assessment Pt presents today with increased bilateral shoulder pain since last session, she has noticed increased muscle sorness too. Pt's symptoms irritable with AROM shoulder flex, abd, scaption. We did lighten up on GH and RC strengthening today to avoid increasing pain and soreness. Pt denied increase in pain with exercises completed today . We discussed possible use of electrical stimulation with CP if she is still in a lot of pain next session. Physical Therapy Plan Next Visit Focus/Plan Next Note Type Treatment Note Next Visit Plan Monitor B shoulder pain and continue with current POC, modifying as necessary to avoid increased pain. Possibly trial E-stim for pain reduction.
--- NOTE | 2018-10-28 12:33 | PT.OTN ---
Current Diagnoses Pain in left shoulder (10/28/18) Strain of muscle(s) and tendon(s) of the rotator cuff of left shoulder, initial encounter (10/28/18) Physical Therapy Treatment Note PT-OP-A Visit Information Start: 10/07/18 07:31 Freq: Status: Active Protocol: Document 10/28/18 09:08 EA (Rec: 10/28/18 09:10 EA [id number]) Out-Patient Physical Therapy Visit Information Visit Information Visit Type Treatment Note Visit Note Late of 15 mins today Visit Number 5 PT-OP-B Current Condition Start: 10/07/18 07:31 Freq: Status: Active Protocol: Document 10/07/18 08:20 BS (Rec: 10/07/18 07:38 BS [id number]) Current Condition History of Current Condition Onset Date 05/2018 History of Current Condition Pt complains of B anterior shoulder pain with insidious onset that began May 2018 . It began with just L shoulder pain, but pt's R shoulder has begun to hurt in the last 2 months. Pt denies a specific event that caused her pain and initially thought it was due to her bed and sleeping position. Pt has since purchased a new bed and has not had any relief in shoulder pain. Pt denies numbness/tingling in her UEs but states that she has had R carpal tunnel in the past. She states that her pain is greatest with shoulder OH motions and that she prefers to sleep on her L side, which increases her pain. Pt uses homeopathic creams and icy hot on her shoulders before bed, which helps her sleep at night . 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 Pt is R hand dominant. Prior Treatments and Tests No previous injuries to shoulder. Future Testing and Treatments Planned Pt is having R meniscal repair 10/16/18. Treatment Goals Patient/Caregiver Goals reduce pain Prior Functional Status Baseline Function- ADL's Independent Baseline Function- Mobility Independent Baseline Function- Gait Independent without use of AD Baseline Function- Work/School Independent Baseline Function- Recreation/Hobbies Independent with all daily and recreational activities. Baseline Function- Other Independent Current Functional Impairments (Reported) Functional Limitations- ADL's Pt reports she has difficulty sleeping, washing hair, and performing any activities that require OH movement of shoulders due to pain. Functional Limitations- Mobility/Gait No reported limitations with gait. Pain and shoulder weakness with OH shoulder mobility. Functional Limitations- Work/School Pt denies difficulty performing job requirements due to L shoulder pain. 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 Functional Limitations- Other sleeping, shipping inspector, carrying a shopping bag. Pt reports she is unable to perform recreational activities that require use of LUE OH. Personal Factors Other Personal Factors That May Effect DM type II Therapy/Recovery PT-OP-C Subjective Start: 10/07/18 07:31 Freq: Status: Active Protocol: Document 10/28/18 09:44 EA (Rec: 10/28/18 09:49 EA [id number]) OP-PT Subjective Patient Comments Patient Comments Pt reports underwent knee surgery 4 days ago and knee still hurts. Pt reports both shoulder still hurts PT-OP-E Functional Tests Start: 10/07/18 07:31 Freq: Status: Active Protocol: Document 10/07/18 08:20 BS (Rec: 10/07/18 08:58 BS [id number]) Functional Tests Apley's Scratch Test Action 1: The subject is instructed to touch the opposite shoulder with his/her hand. This motion checks Glenohumeral adduction, internal rotation , horizontal adduction and scapular protraction Action 2: The subject is instructed to place his/her arm overhead and reach behind the neck to touch his/her upper back. This motion checks Glenohumeral abduction, external rotation and scapular upward rotation and elevation. Action 3: The subject puts his/her hand on the lower back and reaches upward as far as possible. This motion checks glenohumeral adduction, internal rotation and scapular retraction with downward rotation Action 1- Left + ant. shoulder pain Action 1- Right + ant. shoulder pain Action 2- Left + pain, T1 level Action 2- Right + pain, T4 level Action 3- Left + pain, T12 level Action 3- Right + pain, T10 level PT-OP-F Manual Assessment Start: 10/07/18 07:31 Freq: Status: Active Protocol: Document 10/07/18 08:20 BS (Rec: 10/07/18 08:58 BS [id number]) Manual Assessments Soft Tissue Assessment Soft Tissue Mobility Assessment Mod B upper trap tightness PT-OP-G Mobility & Gait Start: 10/07/18 07:31 Freq: Status: Active Protocol: Document 10/07/18 08:20 BS (Rec: 10/07/18 08:58 BS [id number]) OP Mobility Evaluation Bed Mobility Rolling Independent Supine to and from Sit Independent Transfers Sit to Stand Independent Bed to Chair Transfers Independent with use of B UEs Functional Movements Lifting and Carrying Independent, pt reports that she does have B shoulder pain with lifting and carrying heavy objects. PT-OP-J Posture/Palpation/Skin Start: 10/07/18 07:31 Freq: Status: Active Protocol: Document 10/07/18 08:20 BS (Rec: 10/07/18 08:58 BS [id number]) Posture Evaluation Position Sitting Evaluation View Anterior Head/C-Spine Posture Forward Head Shoulder Posture (L) Rounded (R) Rounded Palpation Assessment Location One Palpation Location Bicipital Tendon Bilaterally Palpation Findings Tenderness Palpation Details B periscapular musculature palpated with no reported tenderness. Supraspinatus tendon and RC muscles palpated with no pain or referral of pain. Pain with palpation to B bicpital tendons and anterior deltoid. Lateral and posterior deltoid palpation negative for pain reproduction . PT-OP-K Range of Motion Start: 10/07/18 07:31 Freq: Status: Active Protocol: Document 10/07/18 08:20 BS (Rec: 10/07/18 08:58 BS [id number]) Shoulder Goniometric Range of Motion Shoulder Measured in Degrees Right Active Testing Position Sitting Flexion 147 Abduction 124 External Rotation at 0 degrees Abduction 71 Internal Rotation Behind Back (text) T10 Left Active Shoulder ROM WFL No Testing Position Sitting Flexion 145 Abduction 115 External Rotation at 0 degrees Abduction 60 Internal Rotation Behind Back (text) T12 Shoulder ROM Limitations Shoulder ROM Limitations Pain Comments Pt B shoulder pain highly irritable with pain reproduction in all ROM testing positions. Elbow/Forearm Range of Motion Elbow/Forearm Measured in Degrees Right Active Elbow/Forearm ROM WFL Yes Left Active Elbow/Forearm ROM WFL Yes Elbow/Forearm ROM Limitations Comments Bilateral flexion, extension grossly WFL and pain-free. PT-OP-L Special Tests Start: 10/07/18 07:31 Freq: Status: Active Protocol: Document 10/07/18 08:20 BS (Rec: 10/07/18 08:58 BS [id number]) Special Tests Shoulder Special Tests Passive ER Rotator Cuff Test Results positive Comments Positive for anterior shoulder pain bilaterally at end range passive ER. L passive ER more limited than R. Speed's Biceps Test Results Negative Comments Strong and non-painful bilaterally. Soriano Raudel Impingement Test Results positive Comments painful to attain position, increased pain in posterior upper arm at end range of testing position with L shoulder. R shoulder painful to attain position. No increased pain during test. Neer Impingement Test Results positive Comments L shoulder painful arc 91-145 deg. R shoulder painful arc 95-147 deg. Empty Can Test Results positive Comments Anterior and lateral shoulder pain bilaterally with empty can testing. More pain with shoulder IR than with neutral position. PT-OP-M Strength Start: 10/07/18 07:31 Freq: Status: Active Protocol: Document 10/07/18 08:20 BS (Rec: 10/07/18 08:58 BS [id number]) Shoulder Strength Shoulder Manual Muscle Testing Right Flexion 4+ Good+ Abduction (C5) 4- Good- External Rotation 4+ Good+ Internal Rotation 4+ Good+ Comments MMT to RUE strong with reproduction of R anterior shoulder with with all MMT. Left Flexion 4+ Good+ Abduction (C5) 4- Good- External Rotation 4- Good- Internal Rotation 4+ Good+ Comments MMT to LUE strong with reproduction of L anterior shoulder with with all MMT. Elbow/Forearm Strength Elbow and Forearm Manual Muscle Testing Right Flexion (C6) 5 Normal Comments No pain Left Flexion (C6) 5 Normal Comments No pain. PT-OP-Q Treatments Start: 10/07/18 07:31 Freq: Status: Active Protocol: Document 10/28/18 09:08 EA (Rec: 10/28/18 09:10 EA [id number]) Cardio Equipment Upper Body Ergometer (UBE) Duration (Minutes) 4 Seat Position 9 Height 2.5 Other 2' forward, 2' backward Therapeutic Exercises Supine Exercises 1 Supine Exercise Name Serratus Punches Side left Resistance no weight Reps/Minutes x15 Comments @ 75 deg flexion. L only, R painful Standing Exercises 8 Standing Exercise Name Scaption to 90 deg AROM Side bilateral Equipment Used no wt, 1# Reps/Minutes x10, x10 7 Standing Exercise Name Shoulder ball circles, CW/CCW Side bilateral Equipment Used small ball, shld at 80 deg flex Reps/Minutes x15 each direction Comments light pressure into ball for protraction 6 Standing Exercise Name Lat pulldowns Side bilateral Equipment Used #1 band Reps/Minutes 2x10 5 Standing Exercise Name Scapular Retraction Side bilateral Equipment Used no resistance today Reps/Minutes x15 4 Standing Exercise Name AROM B shld abduction to 90 deg Equipment Used no weight, 1# Reps/Minutes x10, x10 Comments VCs to remain in pain-free range 3 Standing Exercise Name Cane flex to 90 deg Side bilateral Comments attempted, painful today bilaterally. 2 Standing Exercise Name Wall walks Side bilateral Reps/Minutes x10 each Comments painful beg. at 70 deg today 1 Standing Exercise Name Shoulder isometrics: flex/ER/ IR Side bilateral Equipment Used also with elbow flex isometric today Reps/Minutes x12 each Comments supine with manual resistance PT-OP-R Modalities Start: 10/07/18 07:31 Freq: Status: Active Protocol: Document 10/28/18 10:34 EA (Rec: 10/28/18 10:35 EA [id number]) Electric Stimulation Electric Stimulation Interferential Current (IFC) Body Location both anterior shoulders Duration (Minutes) 15 Intensity 12 Contraction Type Normal Combined With Heat/Cold Cold Pack PT-OP-T Assessment and Plan Start: 10/07/18 07:31 Freq: Status: Active Protocol: Document 10/28/18 10:34 EA (Rec: 10/28/18 10:35 EA [id number]) Physical Therapy Assessment Assessment Summary Assessment Tolerated treatment well. Physical Therapy Plan Next Visit Focus/Plan Next Note Type Treatment Note Next Visit Plan Cont. current plan.
--- NOTE | 2018-10-30 08:11 | PT.OTN ---
Current Diagnoses Pain in left shoulder (10/30/18) Strain of muscle(s) and tendon(s) of the rotator cuff of left shoulder, initial encounter (10/30/18) Physical Therapy Treatment Note PT-OP-A Visit Information Start: 10/07/18 07:31 Freq: Status: Active Protocol: Document 10/30/18 08:05 SA (Rec: 10/30/18 08:11 SA [email or web address]) Out-Patient Physical Therapy Visit Information Visit Information Visit Type Treatment Note Visit Start Time 07:30 Visit Stop Time 08:16 Visit Number 6 Number of COMPUTER SECURITY COORDINATOR Visits 1 PT-OP-B Current Condition Start: 10/07/18 07:31 Freq: Status: Active Protocol: Document 10/07/18 08:20 BS (Rec: 10/07/18 07:38 BS [id number]) Current Condition History of Current Condition Onset Date 05/2018 History of Current Condition Pt complains of B anterior shoulder pain with insidious onset that began May 2018 . It began with just L shoulder pain, but pt's R shoulder has begun to hurt in the last 2 months. Pt denies a specific event that caused her pain and initially thought it was due to her bed and sleeping position. Pt has since purchased a new bed and has not had any relief in shoulder pain. Pt denies numbness/tingling in her UEs but states that she has had R carpal tunnel in the past. She states that her pain is greatest with shoulder OH motions and that she prefers to sleep on her L side, which increases her pain. Pt uses homeopathic creams and icy hot on her shoulders before bed, which helps her sleep at night . 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 Pt is R hand dominant. Prior Treatments and Tests No previous injuries to shoulder. Future Testing and Treatments Planned Pt is having R meniscal repair 10/16/18. Treatment Goals Patient/Caregiver Goals reduce pain Prior Functional Status Baseline Function- ADL's Independent Baseline Function- Mobility Independent Baseline Function- Gait Independent without use of AD Baseline Function- Work/School Independent Baseline Function- Recreation/Hobbies Independent with all daily and recreational activities. Baseline Function- Other Independent Current Functional Impairments (Reported) Functional Limitations- ADL's Pt reports she has difficulty sleeping, washing hair, and performing any activities that require OH movement of shoulders due to pain. Functional Limitations- Mobility/Gait No reported limitations with gait. Pain and shoulder weakness with OH shoulder mobility. Functional Limitations- Work/School Pt denies difficulty performing job requirements due to L shoulder pain. 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 Functional Limitations- Other sleeping, treasury assistant, carrying a shopping bag. Pt reports she is unable to perform recreational activities that require use of LUE OH. Personal Factors Other Personal Factors That May Effect DM type II Therapy/Recovery PT-OP-C Subjective Start: 10/07/18 07:31 Freq: Status: Active Protocol: Document 10/30/18 08:05 SA (Rec: 10/30/18 08:11 SA [id number]) OP-PT Subjective Patient Comments Patient Comments Pt states B shoulders feeling a little better, tolerating HEP. Improving standing tolerance with recent knee surgery. PT-OP-E Functional Tests Start: 10/07/18 07:31 Freq: Status: Active Protocol: Document 10/07/18 08:20 BS (Rec: 10/07/18 08:58 BS [id number]) Functional Tests Apley's Scratch Test Action 1: The subject is instructed to touch the opposite shoulder with his/her hand. This motion checks Glenohumeral adduction, internal rotation , horizontal adduction and scapular protraction Action 2: The subject is instructed to place his/her arm overhead and reach behind the neck to touch his/her upper back. This motion checks Glenohumeral abduction, external rotation and scapular upward rotation and elevation. Action 3: The subject puts his/her hand on the lower back and reaches upward as far as possible. This motion checks glenohumeral adduction, internal rotation and scapular retraction with downward rotation Action 1- Left + ant. shoulder pain Action 1- Right + ant. shoulder pain Action 2- Left + pain, T1 level Action 2- Right + pain, T4 level Action 3- Left + pain, T12 level Action 3- Right + pain, T10 level PT-OP-F Manual Assessment Start: 10/07/18 07:31 Freq: Status: Active Protocol: Document 10/07/18 08:20 BS (Rec: 10/07/18 08:58 BS [id number]) Manual Assessments Soft Tissue Assessment Soft Tissue Mobility Assessment Mod B upper trap tightness PT-OP-G Mobility & Gait Start: 10/07/18 07:31 Freq: Status: Active Protocol: Document 10/07/18 08:20 BS (Rec: 10/07/18 08:58 BS [id number]) OP Mobility Evaluation Bed Mobility Rolling Independent Supine to and from Sit Independent Transfers Sit to Stand Independent Bed to Chair Transfers Independent with use of B UEs Functional Movements Lifting and Carrying Independent, pt reports that she does have B shoulder pain with lifting and carrying heavy objects. PT-OP-J Posture/Palpation/Skin Start: 10/07/18 07:31 Freq: Status: Active Protocol: Document 10/07/18 08:20 BS (Rec: 10/07/18 08:58 BS [id number]) Posture Evaluation Position Sitting Evaluation View Anterior Head/C-Spine Posture Forward Head Shoulder Posture (L) Rounded (R) Rounded Palpation Assessment Location One Palpation Location Bicipital Tendon Bilaterally Palpation Findings Tenderness Palpation Details B periscapular musculature palpated with no reported tenderness. Supraspinatus tendon and RC muscles palpated with no pain or referral of pain. Pain with palpation to B bicpital tendons and anterior deltoid. Lateral and posterior deltoid palpation negative for pain reproduction . PT-OP-K Range of Motion Start: 10/07/18 07:31 Freq: Status: Active Protocol: Document 10/07/18 08:20 BS (Rec: 10/07/18 08:58 BS [id number]) Shoulder Goniometric Range of Motion Shoulder Measured in Degrees Right Active Testing Position Sitting Flexion 147 Abduction 124 External Rotation at 0 degrees Abduction 71 Internal Rotation Behind Back (text) T10 Left Active Shoulder ROM WFL No Testing Position Sitting Flexion 145 Abduction 115 External Rotation at 0 degrees Abduction 60 Internal Rotation Behind Back (text) T12 Shoulder ROM Limitations Shoulder ROM Limitations Pain Comments Pt B shoulder pain highly irritable with pain reproduction in all ROM testing positions. Elbow/Forearm Range of Motion Elbow/Forearm Measured in Degrees Right Active Elbow/Forearm ROM WFL Yes Left Active Elbow/Forearm ROM WFL Yes Elbow/Forearm ROM Limitations Comments Bilateral flexion, extension grossly WFL and pain-free. PT-OP-L Special Tests Start: 10/07/18 07:31 Freq: Status: Active Protocol: Document 10/07/18 08:20 BS (Rec: 10/07/18 08:58 BS [id number]) Special Tests Shoulder Special Tests Passive ER Rotator Cuff Test Results positive Comments Positive for anterior shoulder pain bilaterally at end range passive ER. L passive ER more limited than R. Speed's Biceps Test Results Negative Comments Strong and non-painful bilaterally. Soriano Raudel Impingement Test Results positive Comments painful to attain position, increased pain in posterior upper arm at end range of testing position with L shoulder. R shoulder painful to attain position. No increased pain during test. Neer Impingement Test Results positive Comments L shoulder painful arc 91-145 deg. R shoulder painful arc 95-147 deg. Empty Can Test Results positive Comments Anterior and lateral shoulder pain bilaterally with empty can testing. More pain with shoulder IR than with neutral position. PT-OP-M Strength Start: 10/07/18 07:31 Freq: Status: Active Protocol: Document 10/07/18 08:20 BS (Rec: 10/07/18 08:58 BS [id number]) Shoulder Strength Shoulder Manual Muscle Testing Right Flexion 4+ Good+ Abduction (C5) 4- Good- External Rotation 4+ Good+ Internal Rotation 4+ Good+ Comments MMT to RUE strong with reproduction of R anterior shoulder with with all MMT. Left Flexion 4+ Good+ Abduction (C5) 4- Good- External Rotation 4- Good- Internal Rotation 4+ Good+ Comments MMT to LUE strong with reproduction of L anterior shoulder with with all MMT. Elbow/Forearm Strength Elbow and Forearm Manual Muscle Testing Right Flexion (C6) 5 Normal Comments No pain Left Flexion (C6) 5 Normal Comments No pain. PT-OP-Q Treatments Start: 10/07/18 07:31 Freq: Status: Active Protocol: Document 10/30/18 08:05 SA (Rec: 10/30/18 08:11 SA [email or web address]) Cardio Equipment Upper Body Ergometer (UBE) Duration (Minutes) 4 RPM 60 Seat Position 9 Other 2' forward, 2' backward Therapeutic Exercises Supine Exercises 1 Supine Exercise Name Serratus Punches Side left Resistance no weight Reps/Minutes x15 Comments @ 75 deg flexion. L only, R painful Prone Exercises 2 Prone Exercise Name Shoulder Extension Side bilateral Equipment Used 0#, 1# Reps/Minutes x12, x12 Standing Exercises 8 Standing Exercise Name Scaption to 90 deg AROM Side bilateral Equipment Used no wt, 1# Reps/Minutes x10, x10 7 Standing Exercise Name Shoulder ball circles, CW/CCW Side bilateral Equipment Used small ball, shld at 80 deg flex Reps/Minutes x15 each direction Comments light pressure into ball for protraction 6 Standing Exercise Name Lat pulldowns Side bilateral Equipment Used #1 band Reps/Minutes 2x10 5 Standing Exercise Name Scapular Retraction Side bilateral Equipment Used #1 TB Reps/Minutes x15 4 Standing Exercise Name AROM B shld abduction to 90 deg Equipment Used no weight, 1# Reps/Minutes x10, x10 Comments VCs to remain in pain-free range 3 Standing Exercise Name Cane flex to 90 deg Side bilateral Comments did in supine 2 Standing Exercise Name Wall walks Side bilateral Reps/Minutes x10 each Comments painful beg. at 70 deg today 1 Standing Exercise Name Shoulder isometrics: flex/ER/ IR Side bilateral Equipment Used also with elbow flex isometric today Reps/Minutes x12 each Comments supine with manual resistance PT-OP-R Modalities Start: 10/07/18 07:31 Freq: Status: Active Protocol: Document 10/30/18 08:05 (Rec: 10/30/18 08:11 SA [email or web address]) Electric Stimulation Electric Stimulation Interferential Current (IFC) Body Location both anterior shoulders Duration (Minutes) 15 Intensity 12 Contraction Type Normal Combined With Heat/Cold Cold Pack Comments Pt reports relief with e-stim PT-OP-T Assessment and Plan Start: 10/07/18 07:31 Freq: Status: Active Protocol: Document 10/30/18 08:05 (Rec: 10/30/18 08:11 SA [email or web address]) Physical Therapy Assessment Assessment Summary Assessment Pt tolerating ther ex well today with no c/o pain. Consistent with HEP, improving postural awareness. Physical Therapy Plan Next Visit Focus/Plan Next Note Type Treatment Note Next Visit Plan Cont. current plan.
--- NOTE | 2018-11-05 08:16 | PT.OTN ---
Current Diagnoses Pain in left shoulder (11/04/18) Strain of muscle(s) and tendon(s) of the rotator cuff of left shoulder, initial encounter (11/04/18) Physical Therapy Treatment Note PT-OP-A Visit Information Start: 10/07/18 07:31 Freq: Status: Active Protocol: Document 11/04/18 17:39 EA (Rec: 11/04/18 17:42 EA [id number]) Out-Patient Physical Therapy Visit Information Visit Information Visit Start Time 16:00 Visit Stop Time 16:45 Visit Number 7 PT-OP-B Current Condition Start: 10/07/18 07:31 Freq: Status: Active Protocol: Document 10/07/18 08:20 BS (Rec: 10/07/18 07:38 BS [id number]) Current Condition History of Current Condition Onset Date 05/2018 History of Current Condition Pt complains of B anterior shoulder pain with insidious onset that began May 2018 . It began with just L shoulder pain, but pt's R shoulder has begun to hurt in the last 2 months. Pt denies a specific event that caused her pain and initially thought it was due to her bed and sleeping position. Pt has since purchased a new bed and has not had any relief in shoulder pain. Pt denies numbness/tingling in her UEs but states that she has had R carpal tunnel in the past. She states that her pain is greatest with shoulder OH motions and that she prefers to sleep on her L side, which increases her pain. Pt uses homeopathic creams and icy hot on her shoulders before bed, which helps her sleep at night . 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 Pt is R hand dominant. Prior Treatments and Tests No previous injuries to shoulder. Future Testing and Treatments Planned Pt is having R meniscal repair 10/16/18. Treatment Goals Patient/Caregiver Goals reduce pain Prior Functional Status Baseline Function- ADL's Independent Baseline Function- Mobility Independent Baseline Function- Gait Independent without use of AD Baseline Function- Work/School Independent Baseline Function- Recreation/Hobbies Independent with all daily and recreational activities. Baseline Function- Other Independent Current Functional Impairments (Reported) Functional Limitations- ADL's Pt reports she has difficulty sleeping, washing hair, and performing any activities that require OH movement of shoulders due to pain. Functional Limitations- Mobility/Gait No reported limitations with gait. Pain and shoulder weakness with OH shoulder mobility. Functional Limitations- Work/School Pt denies difficulty performing job requirements due to L shoulder pain. 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 Functional Limitations- Other sleeping, maintenance fitter, carrying a shopping bag. Pt reports she is unable to perform recreational activities that require use of LUE OH. Personal Factors Other Personal Factors That May Effect DM type II Therapy/Recovery PT-OP-C Subjective Start: 10/07/18 07:31 Freq: Status: Active Protocol: Document 11/04/18 17:39 EA (Rec: 11/04/18 17:42 EA [id number]) OP-PT Subjective Patient Comments Patient Comments Pt reports left shoulder a bit better than right. PT-OP-E Functional Tests Start: 10/07/18 07:31 Freq: Status: Active Protocol: Document 10/07/18 08:20 BS (Rec: 10/07/18 08:58 BS [id number]) Functional Tests Apley's Scratch Test Action 1: The subject is instructed to touch the opposite shoulder with his/her hand. This motion checks Glenohumeral adduction, internal rotation , horizontal adduction and scapular protraction Action 2: The subject is instructed to place his/her arm overhead and reach behind the neck to touch his/her upper back. This motion checks Glenohumeral abduction, external rotation and scapular upward rotation and elevation. Action 3: The subject puts his/her hand on the lower back and reaches upward as far as possible. This motion checks glenohumeral adduction, internal rotation and scapular retraction with downward rotation Action 1- Left + ant. shoulder pain Action 1- Right + ant. shoulder pain Action 2- Left + pain, T1 level Action 2- Right + pain, T4 level Action 3- Left + pain, T12 level Action 3- Right + pain, T10 level PT-OP-F Manual Assessment Start: 10/07/18 07:31 Freq: Status: Active Protocol: Document 10/07/18 08:20 BS (Rec: 10/07/18 08:58 BS [id number]) Manual Assessments Soft Tissue Assessment Soft Tissue Mobility Assessment Mod B upper trap tightness PT-OP-G Mobility & Gait Start: 10/07/18 07:31 Freq: Status: Active Protocol: Document 10/07/18 08:20 BS (Rec: 10/07/18 08:58 BS [id number]) OP Mobility Evaluation Bed Mobility Rolling Independent Supine to and from Sit Independent Transfers Sit to Stand Independent Bed to Chair Transfers Independent with use of B UEs Functional Movements Lifting and Carrying Independent, pt reports that she does have B shoulder pain with lifting and carrying heavy objects. PT-OP-J Posture/Palpation/Skin Start: 10/07/18 07:31 Freq: Status: Active Protocol: Document 10/07/18 08:20 BS (Rec: 10/07/18 08:58 BS [id number]) Posture Evaluation Position Sitting Evaluation View Anterior Head/C-Spine Posture Forward Head Shoulder Posture (L) Rounded (R) Rounded Palpation Assessment Location One Palpation Location Bicipital Tendon Bilaterally Palpation Findings Tenderness Palpation Details B periscapular musculature palpated with no reported tenderness. Supraspinatus tendon and RC muscles palpated with no pain or referral of pain. Pain with palpation to B bicpital tendons and anterior deltoid. Lateral and posterior deltoid palpation negative for pain reproduction . PT-OP-K Range of Motion Start: 10/07/18 07:31 Freq: Status: Active Protocol: Document 10/07/18 08:20 BS (Rec: 10/07/18 08:58 BS [id number]) Shoulder Goniometric Range of Motion Shoulder Measured in Degrees Right Active Testing Position Sitting Flexion 147 Abduction 124 External Rotation at 0 degrees Abduction 71 Internal Rotation Behind Back (text) T10 Left Active Shoulder ROM WFL No Testing Position Sitting Flexion 145 Abduction 115 External Rotation at 0 degrees Abduction 60 Internal Rotation Behind Back (text) T12 Shoulder ROM Limitations Shoulder ROM Limitations Pain Comments Pt B shoulder pain highly irritable with pain reproduction in all ROM testing positions. Elbow/Forearm Range of Motion Elbow/Forearm Measured in Degrees Right Active Elbow/Forearm ROM WFL Yes Left Active Elbow/Forearm ROM WFL Yes Elbow/Forearm ROM Limitations Comments Bilateral flexion, extension grossly WFL and pain-free. PT-OP-L Special Tests Start: 10/07/18 07:31 Freq: Status: Active Protocol: Document 10/07/18 08:20 BS (Rec: 10/07/18 08:58 BS [id number]) Special Tests Shoulder Special Tests Passive ER Rotator Cuff Test Results positive Comments Positive for anterior shoulder pain bilaterally at end range passive ER. L passive ER more limited than R. Speed's Biceps Test Results Negative Comments Strong and non-painful bilaterally. Soriano Raudel Impingement Test Results positive Comments painful to attain position, increased pain in posterior upper arm at end range of testing position with L shoulder. R shoulder painful to attain position. No increased pain during test. Neer Impingement Test Results positive Comments L shoulder painful arc 91-145 deg. R shoulder painful arc 95-147 deg. Empty Can Test Results positive Comments Anterior and lateral shoulder pain bilaterally with empty can testing. More pain with shoulder IR than with neutral position. PT-OP-M Strength Start: 10/07/18 07:31 Freq: Status: Active Protocol: Document 10/07/18 08:20 BS (Rec: 10/07/18 08:58 BS [id number]) Shoulder Strength Shoulder Manual Muscle Testing Right Flexion 4+ Good+ Abduction (C5) 4- Good- External Rotation 4+ Good+ Internal Rotation 4+ Good+ Comments MMT to RUE strong with reproduction of R anterior shoulder with with all MMT. Left Flexion 4+ Good+ Abduction (C5) 4- Good- External Rotation 4- Good- Internal Rotation 4+ Good+ Comments MMT to LUE strong with reproduction of L anterior shoulder with with all MMT. Elbow/Forearm Strength Elbow and Forearm Manual Muscle Testing Right Flexion (C6) 5 Normal Comments No pain Left Flexion (C6) 5 Normal Comments No pain. PT-OP-Q Treatments Start: 10/07/18 07:31 Freq: Status: Active Protocol: Document 11/04/18 17:39 EA (Rec: 11/04/18 17:42 EA [id number]) Cardio Equipment Upper Body Ergometer (UBE) Duration (Minutes) 4 RPM 60 Seat Position 9 Other 2' forward, 2' backward Therapeutic Exercises Supine Exercises 1 Supine Exercise Name Serratus Punches Side left Resistance no weight Reps/Minutes x15 Comments @ 75 deg flexion. L only, R painful Prone Exercises 2 Prone Exercise Name Shoulder Extension Side bilateral Equipment Used 0#, 1# Reps/Minutes x12, x12 1 Prone Exercise Name Prone Rows Side bilateral Equipment Used 0#, 1# Reps/Minutes x12, x12 Standing Exercises 8 Standing Exercise Name Scaption to 90 deg AROM Side bilateral Equipment Used no wt, 2# Reps/Minutes x10, x10 7 Standing Exercise Name Shoulder ball circles, CW/CCW Side bilateral Equipment Used small ball, shld at 80 deg flex Reps/Minutes x15 each direction Comments light pressure into ball for protraction 6 Standing Exercise Name Lat pulldowns Side bilateral Equipment Used #2 band Reps/Minutes 2x10 5 Standing Exercise Name Scapular Retraction Side bilateral Equipment Used #1 TB Reps/Minutes x15 4 Standing Exercise Name AROM B shld abduction to 90 deg Equipment Used no weight, 1# Reps/Minutes x10, x10 Comments VCs to remain in pain-free range 3 Standing Exercise Name Cane flex to 90 deg Side bilateral Comments did in supine 2 Standing Exercise Name Wall walks Side bilateral Reps/Minutes x10 each Comments painful beg. at 70 deg today 1 Standing Exercise Name Shoulder isometrics: flex/ER/ IR Side bilateral Equipment Used also with elbow flex isometric today Reps/Minutes x12 each Comments supine with manual resistance PT-OP-R Modalities Start: 10/07/18 07:31 Freq: Status: Active Protocol: Document 11/04/18 17:39 EA (Rec: 11/04/18 17:42 EA [id number]) Electric Stimulation Electric Stimulation Interferential Current (IFC) Body Location both anterior shoulders Duration (Minutes) 15 Intensity 12 Contraction Type Normal Combined With Heat/Cold Cold Pack Comments Pt reports relief with e-stim PT-OP-T Assessment and Plan Start: 10/07/18 07:31 Freq: Status: Active Protocol: Document 11/04/18 17:39 EA (Rec: 11/04/18 17:42 EA [id number]) Physical Therapy Assessment Assessment Summary Assessment Improved exercises tolerance with less discomfort at this time. Patient is progressing well. Physical Therapy Plan Next Visit Focus/Plan Next Note Type Treatment Note Next Visit Plan Cont. current plan.
--- NOTE | 2018-11-11 17:16 | PT.OTN ---
Current Diagnoses Pain in left shoulder (11/11/18) Strain of muscle(s) and tendon(s) of the rotator cuff of left shoulder, initial encounter (11/11/18) Physical Therapy Treatment Note PT-OP-A Visit Information Start: 10/07/18 07:31 Freq: Status: Active Protocol: Document 11/11/18 15:53 EA (Rec: 11/11/18 15:58 EA [id number]) Out-Patient Physical Therapy Visit Information Visit Information Visit Type Treatment Note Visit Start Time 16:00 Visit Stop Time 16:45 Visit Number 8 PT-OP-B Current Condition Start: 10/07/18 07:31 Freq: Status: Active Protocol: Document 10/07/18 08:20 BS (Rec: 10/07/18 07:38 BS [id number]) Current Condition History of Current Condition Onset Date 05/2018 History of Current Condition Pt complains of B anterior shoulder pain with insidious onset that began May 2018 . It began with just L shoulder pain, but pt's R shoulder has begun to hurt in the last 2 months. Pt denies a specific event that caused her pain and initially thought it was due to her bed and sleeping position. Pt has since purchased a new bed and has not had any relief in shoulder pain. Pt denies numbness/tingling in her UEs but states that she has had R carpal tunnel in the past. She states that her pain is greatest with shoulder OH motions and that she prefers to sleep on her L side, which increases her pain. Pt uses homeopathic creams and icy hot on her shoulders before bed, which helps her sleep at night . 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 Pt is R hand dominant. Prior Treatments and Tests No previous injuries to shoulder. Future Testing and Treatments Planned Pt is having R meniscal repair 10/16/18. Treatment Goals Patient/Caregiver Goals reduce pain Prior Functional Status Baseline Function- ADL's Independent Baseline Function- Mobility Independent Baseline Function- Gait Independent without use of AD Baseline Function- Work/School Independent Baseline Function- Recreation/Hobbies Independent with all daily and recreational activities. Baseline Function- Other Independent Current Functional Impairments (Reported) Functional Limitations- ADL's Pt reports she has difficulty sleeping, washing hair, and performing any activities that require OH movement of shoulders due to pain. Functional Limitations- Mobility/Gait No reported limitations with gait. Pain and shoulder weakness with OH shoulder mobility. Functional Limitations- Work/School Pt denies difficulty performing job requirements due to L shoulder pain. 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 Pt reports she is unable to perform recreational activities that require use of LUE OH. Personal Factors Other Personal Factors That May Effect DM type II Therapy/Recovery PT-OP-C Subjective Start: 10/07/18 07:31 Freq: Status: Active Protocol: Document 11/11/18 15:53 EA (Rec: 11/11/18 15:58 EA [id number]) OP-PT Subjective Patient Comments Patient Comments Pt reports that right shoulder is feeling much better; states left shoulder her lacked of sleep last night. PT-OP-E Functional Tests Start: 10/07/18 07:31 Freq: Status: Active Protocol: Document 10/07/18 08:20 BS (Rec: 10/07/18 08:58 BS [id number]) Functional Tests Apley's Scratch Test Action 1: The subject is instructed to touch the opposite shoulder with his/her hand. This motion checks Glenohumeral adduction, internal rotation , horizontal adduction and scapular protraction Action 2: The subject is instructed to place his/her arm overhead and reach behind the neck to touch his/her upper back. This motion checks Glenohumeral abduction, external rotation and scapular upward rotation and elevation. Action 3: The subject puts his/her hand on the lower back and reaches upward as far as possible. This motion checks glenohumeral adduction, internal rotation and scapular retraction with downward rotation Action 1- Left + ant. shoulder pain Action 1- Right + ant. shoulder pain Action 2- Left + pain, T1 level Action 2- Right + pain, T4 level Action 3- Left + pain, T12 level Action 3- Right + pain, T10 level PT-OP-F Manual Assessment Start: 10/07/18 07:31 Freq: Status: Active Protocol: Document 10/07/18 08:20 BS (Rec: 10/07/18 08:58 BS [id number]) Manual Assessments Soft Tissue Assessment Soft Tissue Mobility Assessment Mod B upper trap tightness PT-OP-G Mobility & Gait Start: 10/07/18 07:31 Freq: Status: Active Protocol: Document 10/07/18 08:20 BS (Rec: 10/07/18 08:58 BS [id number]) OP Mobility Evaluation Bed Mobility Rolling Independent Supine to and from Sit Independent Transfers Sit to Stand Independent Bed to Chair Transfers Independent with use of B UEs Functional Movements Lifting and Carrying Independent, pt reports that she does have B shoulder pain with lifting and carrying heavy objects. PT-OP-J Posture/Palpation/Skin Start: 10/07/18 07:31 Freq: Status: Active Protocol: Document 10/07/18 08:20 BS (Rec: 10/07/18 08:58 BS [id number]) Posture Evaluation Position Sitting Evaluation View Anterior Head/C-Spine Posture Forward Head Shoulder Posture (L) Rounded (R) Rounded Palpation Assessment Location One Palpation Location Bicipital Tendon Bilaterally Palpation Findings Tenderness Palpation Details B periscapular musculature palpated with no reported tenderness. Supraspinatus tendon and RC muscles palpated with no pain or referral of pain. Pain with palpation to B bicpital tendons and anterior deltoid. Lateral and posterior deltoid palpation negative for pain reproduction . PT-OP-K Range of Motion Start: 10/07/18 07:31 Freq: Status: Active Protocol: Document 10/07/18 08:20 BS (Rec: 10/07/18 08:58 BS [id number]) Shoulder Goniometric Range of Motion Shoulder Measured in Degrees Right Active Testing Position Sitting Flexion 147 Abduction 124 External Rotation at 0 degrees Abduction 71 Internal Rotation Behind Back (text) T10 Left Active Shoulder ROM WFL No Testing Position Sitting Flexion 145 Abduction 115 External Rotation at 0 degrees Abduction 60 Internal Rotation Behind Back (text) T12 Shoulder ROM Limitations Shoulder ROM Limitations Pain Comments Pt B shoulder pain highly irritable with pain reproduction in all ROM testing positions. Elbow/Forearm Range of Motion Elbow/Forearm Measured in Degrees Right Active Elbow/Forearm ROM WFL Yes Left Active Elbow/Forearm ROM WFL Yes Elbow/Forearm ROM Limitations Comments Bilateral flexion, extension grossly WFL and pain-free. PT-OP-L Special Tests Start: 10/07/18 07:31 Freq: Status: Active Protocol: Document 10/07/18 08:20 BS (Rec: 10/07/18 08:58 BS [id number]) Special Tests Shoulder Special Tests Passive ER Rotator Cuff Test Results positive Comments Positive for anterior shoulder pain bilaterally at end range passive ER. L passive ER more limited than R. Speed's Biceps Test Results Negative Comments Strong and non-painful bilaterally. Soriano Raudel Impingement Test Results positive Comments painful to attain position, increased pain in posterior upper arm at end range of testing position with L shoulder. R shoulder painful to attain position. No increased pain during test. Neer Impingement Test Results positive Comments L shoulder painful arc 91-145 deg. R shoulder painful arc 95-147 deg. Empty Can Test Results positive Comments Anterior and lateral shoulder pain bilaterally with empty can testing. More pain with shoulder IR than with neutral position. PT-OP-M Strength Start: 10/07/18 07:31 Freq: Status: Active Protocol: Document 10/07/18 08:20 BS (Rec: 10/07/18 08:58 BS [id number]) Shoulder Strength Shoulder Manual Muscle Testing Right Flexion 4+ Good+ Abduction (C5) 4- Good- External Rotation 4+ Good+ Internal Rotation 4+ Good+ Comments MMT to RUE strong with reproduction of R anterior shoulder with with all MMT. Left Flexion 4+ Good+ Abduction (C5) 4- Good- External Rotation 4- Good- Internal Rotation 4+ Good+ Comments MMT to LUE strong with reproduction of L anterior shoulder with with all MMT. Elbow/Forearm Strength Elbow and Forearm Manual Muscle Testing Right Flexion (C6) 5 Normal Comments No pain Left Flexion (C6) 5 Normal Comments No pain. PT-OP-Q Treatments Start: 10/07/18 07:31 Freq: Status: Active Protocol: Document 11/11/18 15:53 EA (Rec: 11/11/18 15:58 EA [id number]) Cardio Equipment Upper Body Ergometer (UBE) Duration (Minutes) 4 RPM 60 Seat Position 9 Other 2' forward, 2' backward Therapeutic Exercises Prone Exercises 2 Prone Exercise Name Shoulder Extension Side bilateral Equipment Used 0#, 1# Reps/Minutes x12, x12 Standing Exercises 5 Standing Exercise Name Scapular Retraction Side bilateral Equipment Used #1 TB Reps/Minutes x15 Manual Therapy Treatment Soft Tissue Mobilization 1 Body Location left shoulder Mobilization Type Cross-Friction Myofascial Release Rolling Sustained Pressure Intensity/Depth Moderate Body Position Supine Comments performed after US PT-OP-R Modalities Start: 10/07/18 07:31 Freq: Status: Active Protocol: Document 11/11/18 15:53 EA (Rec: 11/11/18 15:58 EA [id number]) Electric Stimulation Electric Stimulation Interferential Current (IFC) Body Location both anterior shoulders Duration (Minutes) 15 Intensity 12 Contraction Type Normal Combined With Heat/Cold Cold Pack Comments Pt reports relief with e-stim PT-OP-T Assessment and Plan Start: 10/07/18 07:31 Freq: Status: Active Protocol: Document 11/11/18 15:53 EA (Rec: 11/11/18 15:58 EA [id number]) Physical Therapy Assessment Assessment Summary Assessment Tolerated treatment well. Recommended to ICE shoulder 2 x /day and avoid extreme shoulder rotation and overhead activity. Physical Therapy Plan Next Visit Focus/Plan Next Note Type Treatment Note Next Visit Plan Cont. current plan.
--- NOTE | 2018-11-23 08:58 | PT.OPDS ---
Current Diagnoses Pain in left shoulder (11/11/18) Strain of muscle(s) and tendon(s) of the rotator cuff of left shoulder, initial encounter (11/11/18) Provider Visit Care Team Role Provider Type Heidy Chand MD Attending Provider Physician Primary Care Provider Specialty: Family Practice Address: [address] [place] [address], [id number] Email: [email or web address] Visit Number Visit Number 8 Discharge Summary PT-OP-B Current Condition Start: 10/07/18 07:31 Freq: Status: Active Protocol: Document 10/07/18 08:20 BS (Rec: 10/07/18 07:38 BS [id number]) Current Condition History of Current Condition Onset Date 05/2018 History of Current Condition Pt complains of B anterior shoulder pain with insidious onset that began May 2018 . It began with just L shoulder pain, but pt's R shoulder has begun to hurt in the last 2 months. Pt denies a specific event that caused her pain and initially thought it was due to her bed and sleeping position. Pt has since purchased a new bed and has not had any relief in shoulder pain. Pt denies numbness/tingling in her UEs but states that she has had R carpal tunnel in the past. She states that her pain is greatest with shoulder OH motions and that she prefers to sleep on her L side, which increases her pain. Pt uses homeopathic creams and icy hot on her shoulders before bed, which helps her sleep at night . 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 Pt is R hand dominant. Prior Treatments and Tests No previous injuries to shoulder. Future Testing and Treatments Planned Pt is having R meniscal repair 10/16/18. Treatment Goals Patient/Caregiver Goals reduce pain Prior Functional Status Baseline Function- ADL's Independent Baseline Function- Mobility Independent Baseline Function- Gait Independent without use of AD Baseline Function- Work/School Independent Baseline Function- Recreation/Hobbies Independent with all daily and recreational activities. Baseline Function- Other Independent Current Functional Impairments (Reported) Functional Limitations- ADL's Pt reports she has difficulty sleeping, washing hair, and performing any activities that require OH movement of shoulders due to pain. Functional Limitations- Mobility/Gait No reported limitations with gait. Pain and shoulder weakness with OH shoulder mobility. Functional Limitations- Work/School Pt denies difficulty performing job requirements due to L shoulder pain. Functional Limitations- Recreation/ Limitations in completing Hobbies community board member that require OH reaching or lifting objects . Functional Limitations- Other sleeping, community board member, carrying a shopping bag. Pt reports she is unable to perform recreational activities that require use of LUE OH. Personal Factors Other Personal Factors That May Effect DM type II Therapy/Recovery PT-OP-C Subjective Start: 10/07/18 07:31 Freq: Status: Active Protocol: Document 11/11/18 15:53 EA (Rec: 11/11/18 15:58 EA [id number]) OP-PT Subjective Patient Comments Patient Comments Pt reports that right shoulder is feeling much better; states left shoulder her lacked of sleep last night. PT-OP-E Functional Tests Start: 10/07/18 07:31 Freq: Status: Active Protocol: Document 10/07/18 08:20 BS (Rec: 10/07/18 08:58 BS [id number]) Functional Tests Apley's Scratch Test Action 1: The subject is instructed to touch the opposite shoulder with his/her hand. This motion checks Glenohumeral adduction, internal rotation , horizontal adduction and scapular protraction Action 2: The subject is instructed to place his/her arm overhead and reach behind the neck to touch his/her upper back. This motion checks Glenohumeral abduction, external rotation and scapular upward rotation and elevation. Action 3: The subject puts his/her hand on the lower back and reaches upward as far as possible. This motion checks glenohumeral adduction, internal rotation and scapular retraction with downward rotation Action 1- Left + ant. shoulder pain Action 1- Right + ant. shoulder pain Action 2- Left + pain, T1 level Action 2- Right + pain, T4 level Action 3- Left + pain, T12 level Action 3- Right + pain, T10 level PT-OP-F Manual Assessment Start: 10/07/18 07:31 Freq: Status: Active Protocol: Document 10/07/18 08:20 BS (Rec: 10/07/18 08:58 BS [id number]) Manual Assessments Soft Tissue Assessment Soft Tissue Mobility Assessment Mod B upper trap tightness PT-OP-G Mobility & Gait Start: 10/07/18 07:31 Freq: Status: Active Protocol: Document 10/07/18 08:20 BS (Rec: 10/07/18 08:58 BS [id number]) OP Mobility Evaluation Bed Mobility Rolling Independent Supine to and from Sit Independent Transfers Sit to Stand Independent Bed to Chair Transfers Independent with use of B UEs Functional Movements Lifting and Carrying Independent, pt reports that she does have B shoulder pain with lifting and carrying heavy objects. PT-OP-J Posture/Palpation/Skin Start: 10/07/18 07:31 Freq: Status: Active Protocol: Document 10/07/18 08:20 BS (Rec: 10/07/18 08:58 BS [id number]) Posture Evaluation Position Sitting Evaluation View Anterior Head/C-Spine Posture Forward Head Shoulder Posture (L) Rounded (R) Rounded Palpation Assessment Location One Palpation Location Bicipital Tendon Bilaterally Palpation Findings Tenderness Palpation Details B periscapular musculature palpated with no reported tenderness. Supraspinatus tendon and RC muscles palpated with no pain or referral of pain. Pain with palpation to B bicpital tendons and anterior deltoid. Lateral and posterior deltoid palpation negative for pain reproduction . PT-OP-K Range of Motion Start: 10/07/18 07:31 Freq: Status: Active Protocol: Document 10/07/18 08:20 BS (Rec: 10/07/18 08:58 BS [id number]) Shoulder Goniometric Range of Motion Shoulder Measured in Degrees Right Active Testing Position Sitting Flexion 147 Abduction 124 External Rotation at 0 degrees Abduction 71 Internal Rotation Behind Back (text) T10 Left Active Shoulder ROM WFL No Testing Position Sitting Flexion 145 Abduction 115 External Rotation at 0 degrees Abduction 60 Internal Rotation Behind Back (text) T12 Shoulder ROM Limitations Shoulder ROM Limitations Pain Comments Pt B shoulder pain highly irritable with pain reproduction in all ROM testing positions. Elbow/Forearm Range of Motion Elbow/Forearm Measured in Degrees Right Active Elbow/Forearm ROM WFL Yes Left Active Elbow/Forearm ROM WFL Yes Elbow/Forearm ROM Limitations Comments Bilateral flexion, extension grossly WFL and pain-free. PT-OP-L Special Tests Start: 10/07/18 07:31 Freq: Status: Active Protocol: Document 10/07/18 08:20 BS (Rec: 10/07/18 08:58 BS [id number]) Special Tests Shoulder Special Tests Passive ER Rotator Cuff Test Results positive Comments Positive for anterior shoulder pain bilaterally at end range passive ER. L passive ER more limited than R. Speed's Biceps Test Results Negative Comments Strong and non-painful bilaterally. Soriano Raudel Impingement Test Results positive Comments painful to attain position, increased pain in posterior upper arm at end range of testing position with L shoulder. R shoulder painful to attain position. No increased pain during test. Neer Impingement Test Results positive Comments L shoulder painful arc 91-145 deg. R shoulder painful arc 95-147 deg. Empty Can Test Results positive Comments Anterior and lateral shoulder pain bilaterally with empty can testing. More pain with shoulder IR than with neutral position. PT-OP-M Strength Start: 10/07/18 07:31 Freq: Status: Active Protocol: Document 10/07/18 08:20 BS (Rec: 10/07/18 08:58 BS [id number]) Shoulder Strength Shoulder Manual Muscle Testing Right Flexion 4+ Good+ Abduction (C5) 4- Good- External Rotation 4+ Good+ Internal Rotation 4+ Good+ Comments MMT to RUE strong with reproduction of R anterior shoulder with with all MMT. Left Flexion 4+ Good+ Abduction (C5) 4- Good- External Rotation 4- Good- Internal Rotation 4+ Good+ Comments MMT to LUE strong with reproduction of L anterior shoulder with with all MMT. Elbow/Forearm Strength Elbow and Forearm Manual Muscle Testing Right Flexion (C6) 5 Normal Comments No pain Left Flexion (C6) 5 Normal Comments No pain. PT-OP-T Assessment and Plan Start: 10/07/18 07:31 Freq: Status: Active Protocol: Document 11/23/18 08:54 AMB (Rec: 11/23/18 08:57 AMB [id number]) Physical Therapy Assessment Goals Three Impairment Strength Longterm Goal (LTG) Bilateral shoulder MMT for flexion, abduction, scaption, and ER/IR to be at least a 4+/ 5 and pain-free. LTG Duration 10 weeks Two Impairment Pain Short Term Goal (STG) Pt to report <4/10 L shoulder pain with flex, abd, ext isometrics, demonstrating reduction in irritability of symptoms. STG Duration functional mobility Pediatric Nurse Goal (LTG) Pt to report ability to hook/ unhook bra behind her back without B shoulder pain. LTG Duration 10 weeks One Impairment lack of HEP Short Term Goal (STG) Pt will be independent with a HEP to maximize rehabiliation potential outside of formal PT sessions. STG Duration 3 weeks Pediatric Nurse Goal (LTG) Bilateral shoulder flexion AROM to improve to at least 150 deg and pain-free so that Nilda is able to complete activtiies that require reaching OH. LTG Duration 10 weeks Assessment Summary Assessment Nilda requests discharge at this time. At her last appointment her right shoulder was feeling better, but she could still feel her left shoulder. She has canceled her remaining appointments.
== END 2018-11-25 08:48 | disposition home or self-care (01) ==
LOC: PHYS 15:15
PROVIDERS: PCP Family Medicine; Visit Provider Family Medicine
DX: M25.512 Pain in left shoulder (principal); S46.012A Strain of muscle(s) and tendon(s) of the rotator cuff of left shoulder, initial encounter
CPT/HCPCS: 97014; 97110; 97140; 97161; G0283

== ENCOUNTER → 2018-11-30 14:04 | Outpatient (CLI) | payer OTHER, SELFPAY ==
--- NOTE | 2018-11-30 14:06 | DI.RAD.S_ITS ---
PROCEDURE: XR CHEST 2V INDICATIONS: Cough with fever TECHNIQUE: 2 views of the chest were acquired. COMPARISON: [facility], , CHEST 2 VIEW, 09/15/2009, 10:31. FINDINGS: Surgical changes and devices: None. Lungs and pleura: Lungs are clear. No pleural effusions or pneumothorax. Mediastinum: Mediastinal contours are normal. Heart size is normal. Bones and chest wall: No suspicious bony abnormalities. Soft tissues appear unremarkable. IMPRESSION: No acute disease Dictated by: Epifanio Alexander M.D. on 11/30/2018 at 15:00 Approved by: Epifanio Alexander M.D. on 11/30/2018 at 15:01
== END ==
PROVIDERS: PCP Family Medicine; Visit Provider Registered Nurse
DX: R05 Cough (principal); R50.9 Fever, unspecified
CPT/HCPCS: 71046

== ENCOUNTER → 2018-12-08 08:02 | Outpatient (CLI) | payer OTHER, SELFPAY ==
[2018-12-08 08:56] LABS: Hemoglobin A1C% w Est Avg Glu 8.1 % (4.0-6.0)
== END ==
PROVIDERS: PCP Family Medicine; Visit Provider Family Medicine
DX: E11.9 Type 2 diabetes mellitus without complications (principal)
CPT/HCPCS: 36415; 83036

== ENCOUNTER → 2019-01-28 08:27 | Outpatient (CLI) | payer OTHER, SELFPAY ==
--- NOTE | 2019-01-28 08:30 | DI.MG.S_ITS ---
BILATERAL DIGITAL SCREENING MAMMOGRAM 3D/2D WITH CAD: 01/28/2019 CLINICAL: Routine screening. Family history of breast cancer. Comparison is made to exams dated: 07/15/2017 mammogram, 01/17/2015 mammogram, and 03/10/2009 mammogram - [facility]. The tissue of both breasts is predominantly fatty. Current study was also evaluated with a Computer Aided Detection (CAD) system. No significant masses, calcifications, or other findings are seen in either breast. There has been no significant interval change. IMPRESSION: NEGATIVE There is no mammographic evidence of malignancy. A 1 year screening mammogram is recommended. This exam was interpreted at Station ID: [id number]. NOTE: For mammograms, a report in lay terms will be sent to the patient. Approximately 15% of breast malignancies will not be visualized mammographically. In the management of a palpable breast mass, a negative mammogram must not discourage biopsy of a clinically suspicious lesion. Electronically Signed By: Quan Roche M.D. at/leisa:01/28/2019 10:30:12 copy to: Heidy Chand M.D., [facility] [email or web address], ph: [phone], fax: [phone] letter sent: Normal Exam ACR BI-RADS Category 1: Negative [id number]
== END ==
PROVIDERS: PCP Family Medicine; Visit Provider Obstetrics & Gynecology
DX: Z12.31 Encounter for screening mammogram for malignant neoplasm of breast (principal); Z80.3 Family history of malignant neoplasm of breast
CPT/HCPCS: 77063; 77067

== ENCOUNTER → 2019-03-16 08:02 | Outpatient (CLI) | payer OTHER, SELFPAY ==
[2019-03-16 09:57] LABS: Hemoglobin A1C% w Est Avg Glu 9.9 % (4.0-6.0)
== END ==
PROVIDERS: PCP Family Medicine; Visit Provider Family Medicine
DX: E11.9 Type 2 diabetes mellitus without complications (principal)
CPT/HCPCS: 36415; 83036

== ENCOUNTER → 2019-06-18 07:55 | Outpatient (CLI) | payer OTHER, SELFPAY ==
[2019-06-18 09:04] LABS: Hemoglobin A1C% w Est Avg Glu 8.4 % (4.0-6.0)
== END ==
PROVIDERS: PCP Family Medicine; Visit Provider Family Medicine
DX: E11.9 Type 2 diabetes mellitus without complications (principal)
CPT/HCPCS: 36415; 83036

== ENCOUNTER 2019-08-09 15:00 | Emergency (ER) | payer OTHER, SELFPAY ==
--- NOTE | 2019-08-09 15:22 | DI.RAD.S_ITS ---
PROCEDURE: XR CHEST 2V INDICATIONS: fever, cough TECHNIQUE: 2 views of the chest were acquired. COMPARISON: [facility], [place], XR CHEST 2V, 11/30/2018, 14:15. FINDINGS: Surgical changes and devices: None. Lungs and pleura: Lungs are clear. No pleural effusions or pneumothorax. Mediastinum: Mediastinal contours are normal. Heart size is normal. Bones and chest wall: No suspicious bony abnormalities. Soft tissues appear unremarkable. IMPRESSION: No acute pulmonary process. Dictated by: Jany Gallagher M.D. on 08/09/2019 at 15:55 Approved by: Jany Gallagher M.D. on 08/09/2019 at 15:57
[2019-08-09 15:30] VITALS: BP 131/60; PULSE 92; RESP 18; TEMP 39.3; O2SAT 95; BMI 38.6
[2019-08-09 16:14] LABS: Influenza A - CEPHEID Flu A POSITIVE (NEGATIVE); Influenza B - CEPHEID Flu B NEGATIVE (NEGATIVE)
--- NOTE | 2019-08-09 16:28 | ED.FEVER ---
HPI - Fever General Chief Complaint: Fever Stated Complaint: FEVER 104 COUGH Time Seen by Provider: 08/09/19 15:22 Source: patient Mode of arrival: Ambulatory Limitations: no limitations History of Present Illness HPI Narrative: 49-year-old female comes to the emergency department with fever 104. Patient has had nasal congestion mild cough. Some nausea and post-tussive emesis. She has had 24 hours worth of symptoms. She denies any chest pain or shortness of breath. Some loose stools but no black or bloody. No abdominal pain. No rashes or skin changes. She suspect she has influenza. She does have diabetes and is on oral medications. She has had history of cholecystectomy. She denies any allergies other than adhesive and citalopram. Related Data Home Medications Medication Instructions Recorded Confirmed lisinopril 2.5 mg PO DAILY 08/09/19 08/09/19 metformin 1,000 mg PO BID 08/09/19 08/09/19 Previous Rx's Medication Instructions Recorded citalopram 20 mg tablet 20 mg PO DAILY #90 tab 03/22/19 atorvastatin 40 mg tablet 40 mg PO DAILY #90 tab 04/08/19 glipizide 5 mg tablet, extended 5 mg PO DAILY #90 tab 06/21/19 release 24 hr oseltamivir [Tamiflu] 75 mg PO BID 5 Days #10 cap 08/09/19 Allergies Allergy/AdvReac Type Severity Reaction Status Date / Time adhesive Allergy Mild RASH Verified 08/09/19 15:29 BLISTERS citalopram Allergy Mild ITCH (ONLY Verified 08/09/19 15:29 A CERTAIN CHEMIST INSTRUMENTATION) Review of Systems Review of Systems ROS Unobtainable: All systems reviewed & are unremarkable except as noted in HPI and below Patient History Medical History Depression (02/25/12) Hyperlipidemia (Chronic 06/05/15) Type 2 diabetes mellitus (Chronic 02/25/12) Surgical History Status post arthroscopy Status post arthroscopy Status post delivery (09/14/02) Status post delivery (01/12/08) Status post laparoscopic cholecystectomy Status post tubal ligation (11/19/13) Family History (Updated 09/13/14 @ 00:00 by MCKINLEY Bonner) Brother Age: 46 Colon polyps Grandfather Heart disease Grandmother Hypertension Social History Smoking Status: Never smoker alcohol intake: current substance use type: does not use Smoking Status: Never smoker Substance Use Type: does not use Exam Narrative Exam Narrative: GEN: well nourished, well appearing female, alert and oriented x 3, patient appears to be in mild distress. HEENT: Atraumatic, pupils are equal round reactive to light, extraocular movements are intact, nares mild clear rhinorrhea, TMs are clear with no fluid, there is no conjunctival pallor. Throat is clear without any exudates, erythema, tonsillar enlargement or uvular deviation HEART: Regular rate and rhythm without murmur, clicks, rubs. LUNGS:Lungs clear to auscultation, no wheezes, rales, crackles, chest moves symmetrically, no accessory muscle use. Speaks in full sentences. Mild dry cough. ABD:bowel sounds normal, soft, non-tender, no guarding, rebound, rigidity, no masses noted, no hepatosplenomegaly MSCL: Non-tender, no muscle atrophy, muscles strength 5/5 upper and lower extremities, full range of motion, normal gait NEURO:CN 2-12 intact, sensation normal SKIN: Rash, no erythema other skin changes Initial Vital Signs Initial Vital Signs: Vital Signs Temperature 102.7 F H 08/09/19 15:30 Pulse Rate 92 H 08/09/19 15:30 Respiratory Rate 18 08/09/19 15:30 Blood Pressure 131/60 08/09/19 15:30 Pulse Oximetry 95 08/09/19 15:30 Course Orders Ordered: ED Orders 08/09/19 15:22 XR chest 2V Stat 08/09/19 15:38 Influenza A & B (PCR) Stat Discontinued Medications Acetaminophen (Tylenol) 650 mg PO NOW ONE Stop: 08/09/19 16:31 Vital Signs Vital signs: Vital Signs - 8 hr 08/09/19 15:30 Temperature 102.7 F H Pulse Rate 92 H Respiratory Rate 18 Blood Pressure 131/60 Pulse Oximetry 95 MDM - Fever Lab Data Labs: Lab Results 08/09/19 Range/Units 15:38 Influenza A (RT-PCR) Flu a positive H (NEGATIVE) Influenza B (RT-PCR) Flu b negative (NEGATIVE) Imaging Data Chest x-ray: Radiologist's Impression: [place] [id number] [place] [id number] XRay Report Signed Patient: Nilda Rousseau AMR#: [id number] : 1970Acct:[id number] Age/Sex: 49 / FDate of Service: 08/09/19 Loc: ED Accession Number: [id number] Procedure: XR chest 2V Ordering Provider: Lala Salgado D.O. PROCEDURE: XR CHEST 2V INDICATIONS: fever, cough TECHNIQUE: 2 views of the chest were acquired. COMPARISON: [facility], , XR CHEST 2V, 11/30/2018, 14:15. FINDINGS: Surgical changes and devices: None. Lungs and pleura: Lungs are clear. No pleural effusions or pneumothorax. Mediastinum: Mediastinal contours are normal. Heart size is normal. Bones and chest wall: No suspicious bony abnormalities. Soft tissues appear unremarkable. IMPRESSION: No acute pulmonary process. Dictated by: Jany Gallagher M.D. on 08/09/2019 at 15:55 Approved by: Jany Gallagher M.D. on 08/09/2019 at 15:57 [facility] Narrative Medical decision making narrative: Patient is inside the window for Tamiflu and she would like to start we discussed risks versus benefits. She still has a fever was given Tylenol the department. She is slightly elevated pulse. Patient chest x-ray was negative. Discharge Plan Departure Patient Disposition: Home Clinical Impression: Influenza A Instructions: DI for Influenza -- Adult Activity Restrictions/Additional Instructions: Follow-up with your physician in the next 7-10 days if you are not having improvement of your symptoms. Take Tylenol and/or ibuprofen as needed for fevers. Prescription for Tamiflu was given, take medications as prescribed. [facility]. Return to the ER for fevers that persist despite Tylenol and ibuprofen, new shortness of breath, chest pain or pressure, passing out, persistent vomiting, black or bloody stools, swelling of her extremities or other new or concerning symptoms. Prescriptions: New oseltamivir [Tamiflu] 75 mg capsule 75 mg PO BID 5 Days Qty: 10 RF: 0 No Action citalopram 20 mg tablet 20 mg PO DAILY Qty: 90 RF: 2 glipizide 5 mg tablet extended release 24hr 5 mg PO DAILY Qty: 90 RF: 2 atorvastatin 40 mg tablet 40 mg PO DAILY Qty: 90 RF: 1 metformin 1,000 mg tablet 1,000 mg PO BID RF: 0 lisinopril 2.5 mg tablet 2.5 mg PO DAILY RF: 0 Referrals: Heidy Chand MD [Primary Care Provider] -
[2019-08-09] MEDS: ACETAMINOPHEN 325 MG TABLET 650 MG PO (16:35)
== END 2019-08-09 16:47 | disposition home or self-care (01) ==
PROVIDERS: Emergency Provider Emergency Medicine; PCP Family Medicine
DX: J09.X2 Influenza due to identified novel influenza A virus with other respiratory manifestations (principal); R05 Cough
CPT/HCPCS: 71046; 87502; 99283

== ENCOUNTER → 2019-10-13 08:04 | Outpatient (CLI) | payer OTHER, SELFPAY ==
[2019-10-13 08:55] LABS: Hemoglobin A1C% w Est Avg Glu 8.7 % (4.0-6.0)
[2019-10-13 09:01] LABS: Alanine Aminotransferase 44 IU/L (<35); Albumin 4.6 g/dL (3.5-5.0); Albumin Globulin Ratio 1.6 (1.0-2.8); Alkaline Phosphatase 103 U/L (38-126); Aspartate Aminotransferase 28 IU/L (14-36); Bilirubin Total 0.7 mg/dL (0.2-1.3); Blood Urea Nitrogen 15 mg/dL (7-17); Calcium 10.3 mg/dL (8.4-10.2); Carbon Dioxide 27 mmol/L (22-32); Chloride 101 mmol/L (98-107); Cholesterol 181 mg/dL (140-199); Estimated Glomerular Filt Rate > 60.0 mL/min (>60); Globulin 2.9 g/dL (1.7-4.1); Glucose 249 mg/dL (70-100); HDL Cholesterol 45 mg/dL (40-60); HEMOLYSIS < 15 (0-50); LDL Cholesterol Calculated 112 mg/dL (<100); Potassium 4.6 mmol/L (3.4-5.1); Sodium 138 mmol/L (137-145); Total Protein 7.5 g/dL (6.3-8.2); Triglycerides 120 mg/dL (35-150)
[2019-10-13 09:14] LABS: Microalbumin Urine Random 6.9 mg/dL (0-1.6)
[2019-10-13 10:50] LABS: Creatinine Urine Random 212.7 mg/dL; Microalbumi Creatinin Ratio Ur 32.4 ug/mg CR (<30)
== END ==
PROVIDERS: PCP Family Medicine; Referring Provider Family Medicine; Visit Provider Family Medicine
DX: E11.9 Type 2 diabetes mellitus without complications (principal)
CPT/HCPCS: 36415; 80053; 80061; 82043; 82570; 83036

== ENCOUNTER 2020-01-04 16:00 | Emergency (ER) | payer OTHER, SELFPAY ==
[2020-01-04] VITALS (8 sets, daily range): BP systolic 125–158; BP diastolic 69–74; PULSE 55–76; RESP 11–21; TEMP 36.7; O2SAT 95–97; BMI 38.6
--- NOTE | 2020-01-04 16:19 | DI.RAD.S_ITS ---
PROCEDURE: XR CHEST 1V INDICATIONS: Chest pain TECHNIQUE: One view of the chest was acquired. COMPARISON: None. FINDINGS: Surgical changes and devices: None. Lungs and pleura: Lungs are clear. No pleural effusions or pneumothorax. Mediastinum: Mediastinal contours appear normal. Heart size is normal. Bones and chest wall: No suspicious bony lesions. Overlying soft tissues appear unremarkable. IMPRESSION: No acute cardiopulmonary process demonstrated radiographically. Dictated by: Russ Cotter M.D. on 01/04/2020 at 16:47 Approved by: Russ Cotter M.D. on 01/04/2020 at 16:47
[2020-01-04 16:56] LABS: Add Manual Diff / Slide Review NO; Basophils Absolute Auto 100 /uL (0-100); Basophils Percent Auto 0.6 % (0-2); Eosinophils Absolute Auto 100 /uL (0-450); Eosinophils Percent Auto 0.8 % (2-4); Hematocrit 40.6 % (36-46); Hemoglobin 13.9 g/dL (12.0-16.0); Lymphocytes Absolute Auto 2700 /uL (1100-4500); Lymphocytes Percent Auto 16.8 % (25-40); Mean Corpuscular HGB Conc 34.2 % (30-36); Mean Corpuscular Hemoglobin 29.3 PG (26-34); Mean Corpuscular Volume 85.7 fL (80-100); Monocytes Absolute Auto 1100 /uL (0-900); Monocytes Percent Auto 6.7 % (3-14); Neutrophils Absolute Auto 12200 /uL (1500-7000); Neutrophils Percent Auto 75.1 % (50-75); Platelet Count 353 X10^3/uL (150-400); Red Blood Cell Count 4.74 X10^6/uL (4.0-5.2); Red Cell Distribution Width 12.6 % (11.6-14.8); White Blood Cell Count 16.2 X10^3/uL (4.5-11.0)
[2020-01-04 17:04] LABS: Prothrombin Time 11.8 SECONDS (10.1-12.7)
[2020-01-04 17:07] LABS: PTT Partial Thromboplastin Tim 30 SECONDS (26.4-36.2)
[2020-01-04 17:09] LABS: Alanine Aminotransferase 39 IU/L (<35); Albumin 4.7 g/dL (3.5-5.0); Albumin Globulin Ratio 1.6 (1.0-2.8); Alkaline Phosphatase 92 U/L (38-126); Aspartate Aminotransferase 28 IU/L (14-36); BUN Creatinine Ratio 38.2 (6-22); Bilirubin Total 0.6 mg/dL (0.2-1.3); Blood Urea Nitrogen 21 mg/dL (7-17); Calcium 10.2 mg/dL (8.4-10.2); Carbon Dioxide 20 mmol/L (22-32); Chloride 103 mmol/L (98-107); Creatine Kinase 40 U/L (30-135); Estimated Glomerular Filt Rate > 60.0 mL/min (>60); Glucose 110 mg/dL (70-100); HEMOLYSIS 19 (0-50); Lipase 581 U/L (23-300); Potassium 3.9 mmol/L (3.4-5.1); Sodium 136 mmol/L (137-145); Total Protein 7.7 g/dL (6.3-8.2)
--- NOTE | 2020-01-04 17:18 | ED_ITS ---
HPI - Skin/Abscess/Foreign Bdy <Bryn Downey MD - Last Filed: 01/22/20 17:09> General Chief complaint: Skin/Abscess/Foreign Body Stated complaint: Rash on Head, Neck, and Hands, Chest Tightness Time Seen by Provider: 01/04/20 17:18 Source: patient Mode of arrival: Ambulatory Limitations: no limitations History of Present Illness HPI narrative: The patient is concerned about a rash to her anterior and cervical scalp that has been present for several days. She has itchiness. She has no fever. She has no history of chronic skin disease. She is diabetic. She has no significant rash elsewhere. Additionally, this morning, she developed xiphoid level pain, radiating around her chest to her back. She has no dyspnea. She has no cardiac or pulmonary history. She denies any significant history of PUD, GERD or hiatal hernia. She has no nausea or vomiting. She has loose bowel movements, not diarrhea. She is status post cholecystectomy. She does not drink significant alcohol, she is a nonsmoker she is treated for hyperlipidemia, hypertension, as well as depression and diabetes. Related Data Home Medications Medication Instructions Recorded Confirmed metformin 1,500 mg PO BID 08/09/19 01/18/20 atorvastatin 40 mg PO QAM 01/04/20 01/18/20 Previous Rx's Medication Instructions Recorded citalopram 20 mg tablet 20 mg PO DAILY #90 tab 12/29/19 hydrocodone-acetaminophen 1 tab PO Q4-6H PRN #10 tab 01/04/20 hydrocortisone 1 applictn TOP BID PRN #30 gram 01/04/20 ondansetron 4 mg PO TID-QID PRN #10 tab 01/04/20 prednisone 20 mg tablet 40 mg PO DAILY #10 tab 01/06/20 lisinopril 2.5 mg tablet 2.5 mg PO DAILY #90 tab 01/13/20 empagliflozin 25 mg tablet 25 mg PO DAILY #90 tab 01/18/20 fluconazole 150 mg tablet 150 mg PO Q3D #2 tab 01/18/20 Allergies Allergy/AdvReac Type Severity Reaction Status Date / Time adhesive Allergy Mild RASH Verified 01/18/20 14:23 BLISTERS citalopram Allergy Mild ITCH (ONLY Verified 01/18/20 14:23 A 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) Review of Systems <Bryn Downey MD - Last Filed: 01/22/20 17:09> Review of Systems ROS Unobtainable: All systems reviewed & are unremarkable except as noted in HPI and below Constitutional Constitutional: Denies chills, Denies fever(s), Denies lethargy and Denies weakness Eyes Comments: No eye irritation ENT Ears, Nose, Mouth, and Throat: Denies change in voice, Denies dizziness, Denies neck pain and Denies sore throat Cardiovascular Cardiovascular: Reports as per HPI and Denies dyspnea Respiratory Respiratory: Denies cough, Denies dyspnea and Denies wheezing Gastrointestinal Gastrointestinal: Reports as per HPI Genitourinary Genitourinary: Denies dysuria Genitourinary: Denies dysuria Comments: No history of pyelonephritis Musculoskeletal Musculoskeletal: Reports back pain and Denies neck pain Integumentary/Breasts Skin/Breast: Reports pruritus, Reports erythema and Reports rash Neurologic Neurologic: Denies confusion, Denies dizziness and Denies weakness Psychiatric Psychiatric: Denies confusion Allergic/Immunologic Allergic/Immunologic: Denies wheezing Patient History <Bryn Downey MD - Last Filed: 01/22/20 17:09> Medical History (Updated 01/19/20 @ 00:00 by ) Depression (02/25/12) Hyperlipidemia (Chronic 06/05/15) Hypertension (Acute) Type 2 diabetes mellitus (Chronic 02/25/12) Surgical History Status post arthroscopy Status post arthroscopy Status post delivery (09/14/02) Status post delivery (01/12/08) Status post laparoscopic cholecystectomy Status post tubal ligation (11/19/13) Family History Brother Age: 47 Colon polyps Grandfather Heart disease Grandmother Hypertension Social History Smoking Status: Never smoker alcohol intake: current substance use type: does not use Smoking Status: Never smoker alcohol intake frequency: 0-2 drinks per day Substance Use Type: does not use Exam <Bryn Downey MD - Last Filed: 01/22/20 17:09> Initial Vital Signs Initial Vital Signs: Vital Signs Temperature 98.0 F 01/04/20 16:05 Pulse Rate 70 07/21/20 16:05 Blood Pressure 158/74 H 01/04/20 16:05 Pulse Oximetry 97 01/04/20 16:05 Const General: cooperative and well developed Nutritional Appearance: well nourished [facility] Mouth: oral mucosae normal Throat: posterior oropharynx normal Eyes Conjunctivae: conjunctivae normal Sclera: sclerae normal Neck Neck: No lymphadenopathy Chest Chest: normal inspection of the chest Resp Effort & Inspection: normal respiratory effort and able to speak in complete sentences Auscultation: clear to auscultation bilaterally, no rales, no rhonchi and no wheezes Cardio Rate: regular rate Rhythm: regular rhythm Heart Sounds: S1 normal, S2 normal, no click, no gallops, no murmurs and no rubs Pulses: normal peripheral pulses GI Other: Epigastric abdominal pain without distention, guarding or rebound. No palpable masses. Normal bowel sounds. No peritoneal signs. Skin General: No jaundice Other: Erythema on the scalp consistent with seborrheic dermatitis. Neuro General: patient alert, patient oriented x3, gait normal and no focal motor deficits Speech: speech normal Extrem General: full ROM, no clubbing, cyanosis or edema, no pedal edema and no calf tenderness Psych Appearance: well kempt Mental Status: mental status grossly normal Attitude: cooperative Thought Content: normal Judgment: judgment good <Raul Finn DO - Last Filed: 01/05/20 02:34> Initial Vital Signs Initial Vital Signs: Vital Signs Temperature 98.0 F 01/04/20 16:05 Pulse Rate 70 01/04/20 16:05 Blood Pressure 158/74 H 01/04/20 16:05 Pulse Oximetry 97 01/04/20 16:05 Course <Bryn Downey MD - Last Filed: 01/22/20 17:09> Course Course Narrative: The patient's chief complaint was the scalp rash, but is more significant complaint was abdominal pain. A cardiac workup was done, which is benign. On exam she has epigastric pain, she is status post coli, but elevated lipase is noted. A CT has been ordered. Care will continues through change of shift. The case has been discussed with the next ER doctor, Dr. Finn. Review of the CT results and disposition are pending. Orders Ordered: Discontinued Medications Hydromorphone HCl (Dilaudid) 1 mg IV NOW ONE Stop: 01/04/20 17:27 Last Admin: 01/04/20 17:41 Dose: 1 mg Documented by: LIONEL Sodium Chloride (Normal Saline 0.9%) 1,000 mls @ 1,000 mls/hr IV BOLUS ONE Stop: 01/04/20 18:25 Last Infusion: 01/04/20 19:36 Dose: 0 mls/hr Documented by: Admin: 01/04/20 17:41 Dose: 1,000 mls/hr Documented by: LIONEL Ondansetron HCl (Zofran) 4 mg IV NOW ONE Stop: 01/04/20 17:43 Last Admin: 01/04/20 17:53 Dose: 4 mg Documented by: LIONEL Vital Signs Vital signs: Vital Signs - 8 hr 01/04/20 19:00 01/04/20 19:30 01/04/20 20:27 Pulse Rate 58 L 67 76 Respiratory Rate 14 21 18 Blood Pressure 125/69 Pulse Oximetry 95 97 97 <Raul Finn, DO - Last Filed: 01/05/20 02:34> Course Course Narrative: Patient received in sign-out from Dr. Downey, I have performed my own history and physical and have a significant additions. CT reviewed and demonstrates no significant findings. Discussion of the plan with patient Orders Ordered: Discontinued Medications Hydromorphone HCl (Dilaudid) 1 mg IV NOW ONE Stop: 01/04/20 17:27 Last Admin: 01/04/20 17:41 Dose: 1 mg Documented by: LIONEL Sodium Chloride (Normal Saline 0.9%) 1,000 mls @ 1,000 mls/hr IV BOLUS ONE Stop: 01/04/20 18:25 Last Infusion: 01/04/20 19:36 Dose: 0 mls/hr Documented by: Admin: 01/04/20 17:41 Dose: 1,000 mls/hr Documented by: LIONEL Ondansetron HCl (Zofran) 4 mg IV NOW ONE Stop: 01/04/20 17:43 Last Admin: 01/04/20 17:53 Dose: 4 mg Documented by: LIONEL Vital Signs Vital signs: Vital Signs - 8 hr 01/04/20 19:00 01/04/20 19:30 01/04/20 20:27 Pulse Rate 58 L 67 76 Respiratory Rate 14 21 18 Blood Pressure 125/69 Pulse Oximetry 95 97 97 MDM - Skin/Abscess/Foreign Bdy <Bryn Downey MD - Last Filed: 01/22/20 17:09> Lab Data Result diagrams: 01/04/20 16:44 01/04/20 16:44 Labs: Lab Results 01/04/20 01/04/20 01/04/20 Range/Units 16:44 16:44 16:44 WBC 16.2 H (4.5-11.0) X10^3/uL RBC 4.74 (4.0-5.2) X10^6/uL Hgb 13.9 (12.0-16.0) g/dL Hct 40.6 (36-46) % MCV 85.7 (80-100) fL MCH 29.3 (26-34) PG MCHC 34.2 (30-36) % RDW 12.6 (11.6-14.8) % Plt Count 353 (150-400) X10^3/uL Neut % (Auto) 75.1 H (50-75) % Lymph % (Auto) 16.8 L (25-40) % [place] % (Auto) 6.7 (3-14) % Eos % (Auto) 0.8 L (2-4) % Baso % (Auto) 0.6 (0-2) % Neut # (Auto) 37773 H (2290-9174) /uL Lymph # (Auto) 2700 (1677-1542) /uL [place] # (Auto) 1100 H (0-900) /uL Eos # (Auto) 100 (0-450) /uL Baso # (Auto) 100 (0-100) /uL PT 11.8 (10.1-12.7) SECONDS INR 1.0 (0.9-1.3) APTT 30 (26.4-36.2) SECONDS Sodium 136 L (137-145) mmol/L Potassium 3.9 (3.4-5.1) mmol/L Chloride 103 (98-107) mmol/L Carbon Dioxide 20 L (22-32) mmol/L BUN 21 H (7-17) mg/dL Creatinine 0.55 (0.52-1.04) mg/dL Estimated GFR > 60.0 (>60) mL/min BUN/Creatinine Ratio 38.2 H (6-22) Glucose 110 H (70-100) mg/dL Calcium 10.2 (8.4-10.2) mg/dL Total Bilirubin 0.6 (0.2-1.3) mg/dL AST 28 (14-36) IU/L ALT 39 H (<35) IU/L Alkaline Phosphatase 92 (38-126) U/L Total Creatine Kinase 40 (30-135) U/L CK-MB (CK-2) TNP CK-MB (CK-2) Rel Index TNP Troponin I < 0.012 (0.01-0.034) ng/mL Total Protein 7.7 (6.3-8.2) g/dL Albumin 4.7 (3.5-5.0) g/dL Globulin 3.0 (1.7-4.1) g/dL Albumin/Globulin Ratio 1.6 (1.0-2.8) Lipase 581 H (23-300) U/L Imaging Data Chest x-ray: Radiologist's Impression: No acute findings. ECG Data Attestation: I personally reviewed and interpreted this ECG as follows: (Sinus bradycardia rate 58 bpm. Normal intervals. No ectopy. No acute ST T wave changes.) <Raul Finn DO - Last Filed: 01/05/20 02:34> Lab Data Labs: Lab Results 01/04/20 01/04/20 01/04/20 Range/Units 16:44 16:44 16:44 WBC 16.2 H (4.5-11.0) X10^3/uL RBC 4.74 (4.0-5.2) X10^6/uL Hgb 13.9 (12.0-16.0) g/dL Hct 40.6 (36-46) % MCV 85.7 (80-100) fL MCH 29.3 (26-34) PG MCHC 34.2 (30-36) % RDW 12.6 (11.6-14.8) % Plt Count 353 (150-400) X10^3/uL Neut % (Auto) 75.1 H (50-75) % Lymph % (Auto) 16.8 L (25-40) % [place] % (Auto) 6.7 (3-14) % Eos % (Auto) 0.8 L (2-4) % Baso % (Auto) 0.6 (0-2) % Neut # (Auto) 36793 H (9858-4975) /uL Lymph # (Auto) 2700 (9227-1827) /uL [place] # (Auto) 1100 H (0-900) /uL Eos # (Auto) 100 (0-450) /uL Baso # (Auto) 100 (0-100) /uL PT 11.8 (10.1-12.7) SECONDS INR 1.0 (0.9-1.3) APTT 30 (26.4-36.2) SECONDS Sodium 136 L (137-145) mmol/L Potassium 3.9 (3.4-5.1) mmol/L Chloride 103 (98-107) mmol/L Carbon Dioxide 20 L (22-32) mmol/L BUN 21 H (7-17) mg/dL Creatinine 0.55 (0.52-1.04) mg/dL Estimated GFR > 60.0 (>60) mL/min BUN/Creatinine Ratio 38.2 H (6-22) Glucose 110 H (70-100) mg/dL Calcium 10.2 (8.4-10.2) mg/dL Total Bilirubin 0.6 (0.2-1.3) mg/dL AST 28 (14-36) IU/L ALT 39 H (<35) IU/L Alkaline Phosphatase 92 (38-126) U/L Total Creatine Kinase 40 (30-135) U/L CK-MB (CK-2) TNP CK-MB (CK-2) Rel Index TNP Troponin I < 0.012 (0.01-0.034) ng/mL Total Protein 7.7 (6.3-8.2) g/dL Albumin 4.7 (3.5-5.0) g/dL Globulin 3.0 (1.7-4.1) g/dL Albumin/Globulin Ratio 1.6 (1.0-2.8) Lipase 581 H (23-300) U/L Imaging Data CT scan - abdomen/pelvis: Radiologist's Impression: [address] [address] [address] Scan Report Signed Patient: Nilda Rousseau [facility]#: [id number] : 1970Acct:[id number] Age/Sex: 49 / FDate of Service: 01/04/20 Loc: ED Accession Number: [id number] Procedure: CT abdomen pelvis w con Ordering Provider: Bryn Downey MD PROCEDURE: CT ABDOMEN PELVIS W CON INDICATIONS: Pancreatitis TECHNIQUE: After the administration of intravenous contrast, 5 mm thick sections acquired from the diaphragm to the symphysis. 5 mm coronal and sagittal reformats were acquired. For radiation dose reduction, the following was used: automated exposure control, adjustment of mA and/or kV according to patient size. COMPARISON: None. FINDINGS: Image quality: Excellent. ABDOMEN: Lung bases: Lung bases are clear. Heart size is normal. Solid organs: Evaluation of the liver demonstrates no focal hepatic lesions. The gallbladder is surgically absent. Biliary system is non-dilated. Pancreas enhances normally. No peripancreatic fat stranding or fluid collections. No pancreatic duct dilatation. The spleen is normal in size. No adrenal nodules. Kidneys demo nstrate no hydronephrosis. Peritoneum and bowel: Bowel loops demonstrate normal wall thickness and caliber. The appendix is normal in appearance. There is colonic diverticulosis without acute diverticulitis. No free fluid or air. There is mild hazy fat stranding in the mesentery with areas of sparing along the mesenteric vessels and lymph nodes. Nodes and vessels: No retroperitoneal or mesenteric adenopathy by size criteria. Multiple mildly prominent subcentimeter mesenteric lymph nodes are noted. Aorta and inferior vena cava are normal in size. Miscellaneous: No ventral hernias. PELVIS: Genitourinary: Bladder wall thickness is normal. A small left ovarian cyst is demonstrated measuring approximately 1.7 cm. Miscellaneous: No inguinal hernias or adenopathy. Bones: No suspicious bony lesions. No vertebral body compression fractures. IMPRESSION: 1. No CT evidence of acute pancreatitis. No acute peripancreatic fluid collections or evidence of pancreatic necrosis. 2. Hazy fat stranding in the mesentery with areas of sparing along the mesenteric vessels and lymph nodes. 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 3. Colonic diverticulosis. Dictated by: Facundo Schultz M.D. on 01/04/2020 at 17:55 Approved by: Facundo Schultz M.D. on 01/04/2020 at 18:02 ECG Data Attestation: I personally reviewed and interpreted this ECG as follows: Prior ECG tracings: not available for review Interpretation: EKG is sinus rachel rhythm rate [58] and free of any signs of ischemia or ectopy. No ST segmental elevation or depression. No T wave inversions MDM Narrative Medical decision making narrative: Multiple etiologies for patient's symptoms considered including: [] Patient's symptoms improved or duration of stay with above-stated therapies. Findings and discharge diagnosis discussed with patient/family followed by verbalization of understanding Return precautions discussed with patient/family whom verbalize understanding. Discharge Plan Departure Patient Disposition: Home Clinical Impression: Acute pancreatitis, Acute seborrheic dermatitis Discharge Date/Time: 01/04/20 20:27 Instructions: Acute Pancreatitis Activity Restrictions/Additional Instructions: *You have been diagnosed with seborrheic dermatitis and epigastric pain from mild pancreatitis *What to do: *Take medications as directed including over the counter antihistamines like benadryl and zantac/pepcid. *Follow up with your primary care provider in 2-3 days, call for an appointment. Let them know you were seen in the Emergency Department and that we ask that you be seen in follow up *Return to ER if you should have any new, worsening or concerning symptoms 1. Drink plenty of fluids with frequent small sips. 2. For the next 24 hours a clear liquid diet is advised. After that please employ a brat diet which would include bananas, rice, apples, toast. 3. Please take medications as directed. 4. Please follow-up with your doctor in the next 1-2 days. Call the office for an appointment. 5. Please return to the emergency Department for any worsening or persistent symptoms, such as increasing pain or fever. Prescriptions: New hydrocodone-acetaminophen 5-325 mg tablet 1 tab PO Q4-6H PRN (Reason: pain) Qty: 10 RF: 0 ondansetron 4 mg tablet,disintegrating 4 mg PO TID-QID PRN (Reason: nausea and vomiting) Qty: 10 RF: 0 hydrocortisone 2.5 % cream 1 applictn TOP BID PRN (Reason: allergic reaction) Qty: 30 RF: 0 No Action fluconazole 150 mg tablet 150 mg PO Q3D Qty: 2 RF: 4 empagliflozin 25 mg tablet 25 mg PO DAILY Qty: 90 RF: 2 citalopram 20 mg tablet 20 mg PO DAILY Qty: 90 RF: 2 prednisone 20 mg tablet 40 mg PO DAILY Qty: 10 RF: 0 lisinopril 2.5 mg tablet 2.5 mg PO DAILY Qty: 90 RF: 0 atorvastatin 40 mg tablet 40 mg PO QAM RF: 0 metformin 1,000 mg tablet 1,500 mg PO BID RF: 0 Referrals: Heidy Chand MD [Primary Care Provider] -
[2020-01-04 17:20] LABS: Troponin I < 0.012 ng/mL (0.01-0.034)
--- NOTE | 2020-01-04 17:26 | DI.CT.S_ITS ---
PROCEDURE: CT ABDOMEN PELVIS W CON INDICATIONS: Pancreatitis TECHNIQUE: After the administration of intravenous contrast, 5 mm thick sections acquired from the diaphragm to the symphysis. 5 mm coronal and sagittal reformats were acquired. For radiation dose reduction, the following was used: automated exposure control, adjustment of mA and/or kV according to patient size. COMPARISON: None. FINDINGS: Image quality: Excellent. ABDOMEN: Lung bases: Lung bases are clear. Heart size is normal. Solid organs: Evaluation of the liver demonstrates no focal hepatic lesions. The gallbladder is surgically absent. Biliary system is non-dilated. Pancreas enhances normally. No peripancreatic fat stranding or fluid collections. No pancreatic duct dilatation. The spleen is normal in size. No adrenal nodules. Kidneys demonstrate no hydronephrosis. Peritoneum and bowel: Bowel loops demonstrate normal wall thickness and caliber. The appendix is normal in appearance. There is colonic diverticulosis without acute diverticulitis. No free fluid or air. There is mild hazy fat stranding in the mesentery with areas of sparing along the mesenteric vessels and lymph nodes. Nodes and vessels: No retroperitoneal or mesenteric adenopathy by size criteria. Multiple mildly prominent subcentimeter mesenteric lymph nodes are noted. Aorta and inferior vena cava are normal in size. Miscellaneous: No ventral hernias. PELVIS: Genitourinary: Bladder wall thickness is normal. A small left ovarian cyst is demonstrated measuring approximately 1.7 cm. Miscellaneous: No inguinal hernias or adenopathy. Bones: No suspicious bony lesions. No vertebral body compression fractures. IMPRESSION: 1. No CT evidence of acute pancreatitis. No acute peripancreatic fluid collections or evidence of pancreatic necrosis. 2. Hazy fat stranding in the mesentery with areas of sparing along the mesenteric vessels and lymph nodes. 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 3. Colonic diverticulosis. Dictated by: Facundo Schultz M.D. on 01/04/2020 at 17:55 Approved by: Facundo Schultz M.D. on 01/04/2020 at 18:02
[2020-01-04] MEDS: HYDROMORPHONE 1 MG INJ IV (17:41)
[2020-01-04] MEDS: SODIUM CHLORIDE 0.9% 1,000 ML 1000 ML IV (17:41)
[2020-01-04] MEDS: ONDANSETRON 4 MG/2 ML INJ IV (17:53)
== END 2020-01-04 20:27 | disposition home or self-care (01) ==
PROVIDERS: Emergency Medicine; Emergency Provider Emergency Medicine; PCP Family Medicine
DX: L21.8 Other seborrheic dermatitis (principal); K85.90 Acute pancreatitis without necrosis or infection, unspecified; I10 Essential (primary) hypertension; E78.5 Hyperlipidemia, unspecified; F32.9 Major depressive disorder, single episode, unspecified; E11.9 Type 2 diabetes mellitus without complications; M54.9 Dorsalgia, unspecified; R10.9 Unspecified abdominal pain; R07.9 Chest pain, unspecified
CPT/HCPCS: 36415; 71045; 74177; 80053; 82550; 83690; 84484; 85025; 85610; 85730; 93005; 96361; 96374; 96375; 99284; J1170; J2405

== ENCOUNTER 2020-01-20 14:30 | Outpatient (RCR) | payer OTHER, SELFPAY ==
--- NOTE | 2019-11-11 16:45 | PT.OIE ---
Current Diagnoses Pain in right shoulder (11/11/19) Past Medical History (Last Reviewed 08/09/19 @ 16:40 by Lala Salgado DO) Depression (02/25/12) Hyperlipidemia (Chronic 06/05/15) Type 2 diabetes mellitus (Chronic 02/25/12) Past Surgical History (Last Reviewed 08/09/19 @ 16:40 by Lala Salgado DO) Status post arthroscopy Status post arthroscopy Status post delivery (09/14/02) Status post delivery (01/12/08) Status post laparoscopic cholecystectomy Status post tubal ligation (11/19/13) Visit Care Team Role Provider Type Heidy Chand MD Attending Provider Physician Primary Care Provider Referring Provider Specialty: [facility] Address: [address] [place] [address], [place], [place], [facility] Email: [email or web address] Physical Therapy Initial Evaluation PT-OP-A Visit Information Start: 11/15/19 10:16 Freq: Status: Active Protocol: Document 11/11/19 16:00 (Rec: 11/15/19 10:57 [email or web address]) Out-Patient Physical Therapy Visit Information Visit Information Visit Type Initial Evaluation Visit Start Time 16:00 Visit Stop Time 16:45 Total Visit Minutes 45 Visit Number 1/6 Number of SIGN BOARD ERECTOR Visits 0 Evaluation Information Evaluation Date 11/15/19 PT-OP-B Current Condition Start: 11/15/19 10:16 Freq: Status: Active Protocol: Document 11/11/19 16:00 HH (Rec: 11/15/19 10:57 [email or web address]) Current Condition History of Current Condition Onset Date 2 years ago Current Complaints Chronic R shoulder pain, difficult to reach behind her back History of Current Condition Pt is a 49 yo female here with c/o worsening R shoulder pain 910 recently. Pt was here for PT last year for frozen shoulder and her symptoms did get better. However, she c/o her pain has been getting worse recently and she started having significant difficulty reaching behind her back. She described her pain as thobbing sensation located mostly at the top of her R shoulder. she currently has trouble washing her back, opening a tight jar, reaching behind to luci a jacket. She also feelssore to sleep on her R side. She does not c/o any tingling and numbess sensation down to her arm. 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 Pt recently went to see her PCP Dr. Chand who thinks she has RTC tendonopathy. Treatment Goals Patient/Caregiver Goals 1. To be able to reach behind her back fully Prior Functional Status Baseline Function- ADL's Independent Baseline Function- Mobility Independent Current Functional Impairments (Reported) Functional Limitations- ADL's unable to reach behind her back to luci a jacket/ wash behind her back. Personal Factors Other Personal Factors That May Effect Depression Therapy/Recovery DM II Per EMR, pt's fasting blood sugars have been 180-190 range , previously over 200. Pt has not been able to change her diet significantly. PT-OP-C Subjective Start: 11/15/19 10:16 Freq: Status: Active Protocol: Document 11/11/19 16:00 (Rec: 11/15/19 10:57 [email or web address]) OP-PT Subjective Patient Comments Patient Comments 'My R shoulder has been getting worse and i dont know why. Patient Questionnaires Quick Dash- Upper Extremity Quick Dash UE Score 38.64 Quick Dash UE Impairment 20 to 39% Impaired (Score 20- 39) OP-PT Pain Assessment Location R shoulder Pain Location Details top of R shoulder Intensity 9 Scale Used Numeric (1 - 10) Description Aching,Pinching,Pressure Frequency Constant Pain Aggravating Factors Activity,Exercise Pain Alleviating Factors Inactivity PT-OP-E Functional Tests Start: 11/15/19 10:16 Freq: Status: Active Protocol: Document 11/11/19 16:00 (Rec: 11/15/19 10:57 [email or web address]) Functional Tests Apley's Scratch Test Action 2- Left spine of r scapular Action 2- Right spine of L scapular Action 3- Left center of T 5 Action 3- Right R PSIS PT-OP-F Manual Assessment Start: 11/15/19 10:16 Freq: Status: Active Protocol: Document 11/11/19 16:00 (Rec: 11/15/19 10:57 [email or web address]) Manual Assessments Soft Tissue Assessment Soft Tissue Mobility Assessment significant tenderness to pressure at distal supraspinatus tendon and infraspinatus c/o radiating pain to top of R shoulder with pressure on infraspinatus PT-OP-H Neuro Start: 11/15/19 10:16 Freq: Status: Active Protocol: Document 11/11/19 16:00 HH (Rec: 11/15/19 10:57 [email or web address]) Sensation Evaluation Gross Sensation Gross Sensation WNL Deep Tendon Reflex & Clonus Assessment Deep Tendon Reflex Tricep Deep Tendon Reflex 2+ Normal Bilateral Brachioradialis Deep Tendon Reflex 2+ Normal Bilateral Bicep Deep Tendon Reflex 2+ Normal PT-OP-K Range of Motion Start: 11/15/19 10:16 Freq: Status: Active Protocol: Document 11/11/19 16:00 HH (Rec: 11/15/19 10:57 [email or web address]) Cervical Spine Range of Motion Cervical Spine Active Percentage Testing Position Standing ROM Limitations Pain Comments WFL for AROm report of radiating pain to trapezius with extension and extension +rotation Shoulder Goniometric Range of Motion Shoulder Right Active Shoulder ROM WFL Yes External Rotation at 90 degrees 84 Abduction Left Active Shoulder ROM WFL Yes Shoulder ROM Limitations Comments pain noted with end range R shoulder ER (90 shoulder abd and in supine) PT-OP-L Special Tests Start: 11/15/19 10:16 Freq: Status: Active Protocol: Document 11/11/19 16:00 HH (Rec: 11/15/19 10:57 [email or web address]) Special Tests Cervical Spine Special Tests facet joint Test Results +VE B Comments report of radiating pain to trapezius with extension and extension +rotatio Spurling's Test Test Results +VE R Comments report of radiating pain to R trap Foraminal Compression Test Results +ve R Comments report of radiating pain to trapezius Upper Limb Tension Test Test Results +ve R Comments tingling numbness on R forearm / finger without c/s rotation Shoulder Special Tests Apprehension Test Test Results +VE R Comments pain noted at top of R shoulder AC Joint Compression Test Results -ve Passive ER Rotator Cuff Test Results +VE R Speed's Biceps Test Results -ve Harris Raudel Impingement Test Results +VE R Comments pain noted at top of R shoulder Neer Impingement Test Results -ve R Empty Can Test Results -ve PT-OP-M Strength Start: 11/15/19 10:16 Freq: Status: Active Protocol: Document 11/11/19 16:00 HH (Rec: 11/15/19 10:57 [email or web address]) Shoulder Strength Shoulder Manual Muscle Testing Right Flexion 4+ Good+ Extension 5 Normal Abduction (C5) 4+ Good+ Adduction 5 Normal External Rotation 4+ Good+ Internal Rotation 4+ Good+ Left Flexion 5 Normal Extension 5 Normal Abduction (C5) 5 Normal Adduction 5 Normal External Rotation 5 Normal Internal Rotation 5 Normal PT-OP-Q Treatments Start: 11/15/19 10:16 Freq: Status: Active Protocol: Document 11/11/19 16:00 (Rec: 11/15/19 10:57 [email or web address]) Therapeutic Exercises Standing Exercises muscle release Standing Exercise Name use of tennis ball for self release Side right Comments on R infraspinatus, lats for HEP PT-OP-T Assessment and Plan Start: 11/15/19 10:16 Freq: Status: Active Protocol: Document 11/11/19 16:00 (Rec: 11/15/19 10:57 [email or web address]) Physical Therapy Assessment Goals special tests Impairment pt presents cervical radiculopathy signs on R shoulder Fpc Goal (LTG) Pt will be symptoms free for special tests (UTTT, cervical facet joint test) in order to improve her neural tension to increase cervical and R UE mobility for functional activities LTG Duration 8 weeks ROM Impairment Pt has significant pain 9/10 to reach behind her back. Drier And Evaporator Operator Goal (LTG) Pt will be able to reach the center of T4 with R arm in order to luci her clothes/ wash her back in symptoms free . LTG Duration 8 weeks Quickdash Impairment pt scores 38.64 on quickdash Short Term Goal (STG) Pt will score <30 on quickdash to improve her overall functional strength and mobility. STG Duration 4 weeks Drier And Evaporator Operator Goal (LTG) Pt will score <20 on quickdash to improve her overall functional strength and mobility. LTG Duration 8 weeks Assessment Summary Assessment This is moderate complexity evaluation for this 49yo female who presents to clinic with chronic R shoulder pain with uncontrolled DMII as Dr. Chand stated. Pt was being treated for frozen shoulder last year. Upon assessment, pt presents a combination of mild cervical radiculopathy and RTC tendonopathy. Pain is reported with spurling test, foraminal compression test and UTTT for median nerve, along with harris, reaching behind her back and passive ER with shoulder abducted to 90degrees . Pressure to infraspinatus and distal supraspinatus also reproduced her symptoms. There 's also noticeable posterior capsule tightness which increase anterior translation force to anterior capsule during reaching back motions. Given tennis ball release for infraspinatus and lats for HEP and pt was able to reach further immediately with reduced shoulder pain. Pt will benefit from skilled therapy to improve her shoulder mobility, strength and awareness of management of her sugar level d/t DMII,. Physical Therapy Plan Frequency and Duration Frequency of Treatment 1x/Week Duration of Treatment 8 weeks Plan of Care Start Date 11/11/19 Plan of Care End Date 01/14/20 Therapeutic Interventions Therapeutic Interventions Home Exercise Program,Joint Mobilizations,Manual Therapy, Neuromuscular Re-education, Patient/Caregiver Education, Self-Care/Home Management,Soft Tissue Mobilization,Taping, Therapeutic Activities, Therapeutic Exercises Modalities Cold Pack/Ice Massage,Electric Stimulation,Hot Packs, Infrared Therapy,Ultrasound Next Visit Focus/Plan Next Note Type Treatment Note Next Visit Plan manual release on supraspinatus, infrapsinatus, posterior glide of gh joint cervical traction, T/S mobility UTTt nerve stretch
--- NOTE | 2019-11-11 16:45 | PT.OPPOC ---
Physical, Occupational & Speech Therapy At [facility] Current Diagnoses Pain in right shoulder (11/11/19) Visit Care Team Role Provider Type Heidy Chand MD Attending Provider Physician Primary Care Provider Referring Provider Specialty: Family Practice Address: [address] [place] [address], [facility] [place], [address] Email: [email or web address] Plan Of Care PT-OP-T Assessment and Plan Start: 11/15/19 10:16 Freq: Status: Active Protocol: Document 11/11/19 16:00 HH (Rec: 11/15/19 10:57 HH [email or web address]) Physical Therapy Assessment Goals special tests Impairment pt presents cervical radiculopathy signs on R shoulder Licensed Investment Sales Assistant Goal (LTG) Pt will be symptoms free for special tests (UTTT, cervical facet joint test) in order to improve her neural tension to increase cervical and R UE mobility for functional activities LTG Duration 8 weeks ROM Impairment Pt has significant pain 9/10 to reach behind her back. Licensed Investment Sales Assistant Goal (LTG) Pt will be able to reach the center of T4 with R arm in order to luci her clothes/ wash her back in symptoms free . LTG Duration 8 weeks Quickdash Impairment pt scores 38.64 on quickdash Short Term Goal (STG) Pt will score <30 on quickdash to improve her overall functional strength and mobility. STG Duration 4 weeks Usp Goal (LTG) Pt will score <20 on quickdash to improve her overall functional strength and mobility. LTG Duration 8 weeks Assessment Summary Assessment This is moderate complexity evaluation for this 49yo female who presents to clinic with chronic R shoulder pain with uncontrolled DMII as Dr. Chand stated. Pt was being treated for frozen shoulder last year. Upon assessment, pt presents a combination of mild cervical radiculopathy and RTC tendonopathy. Pain is reported with spurling test, foraminal compression test and UTTT for median nerve, along with harris, reaching behind her back and passive ER with shoulder abducted to 90degrees . Pressure to infraspinatus and distal supraspinatus also reproduced her symptoms. There 's also noticeable posterior capsule tightness which increase anterior translation force to anterior capsule during reaching back motions. Given tennis ball release for infraspinatus and lats for HEP and pt was able to reach further immediately with reduced shoulder pain. Pt will benefit from skilled therapy to improve her shoulder mobility, strength and awareness of management of her sugar level d/t DMII,. Physical Therapy Plan Frequency and Duration Frequency of Treatment 1x/Week Duration of Treatment 8 weeks Plan of Care Start Date 11/11/19 Plan of Care End Date 01/14/20 Therapeutic Interventions Therapeutic Interventions Home Exercise Program,Joint Mobilizations,Manual Therapy, Neuromuscular Re-education, Patient/Caregiver Education, Self-Care/Home Management,Soft Tissue Mobilization,Taping, Therapeutic Activities, Therapeutic Exercises Modalities Cold Pack/Ice Massage,Electric Stimulation,Hot Packs, Infrared Therapy,Ultrasound Next Visit Focus/Plan Next Note Type Treatment Note Next Visit Plan manual release on supraspinatus, infrapsinatus, posterior glide of gh joint cervical traction, T/S mobility UTTt nerve stretch Plan of Care Dates Plan of Care Start Date 11/11/19 Plan of Care End Date 01/14/20 Electronically Signed by: Cholo Gorman PT 11/15/19 2610 Please Sign and Return: I have reviewed this Plan of Care and certify that the skilled therapy services above are required to meet the patient?s needs. Physician Signature Date Printed Name and Credentials Clinical Instructor Signature Printed Name and Credentials
--- NOTE | 2019-11-11 16:45 | PT.OIE ---
Current Diagnoses Pain in right shoulder (11/11/19) Past Medical History (Last Reviewed 08/09/19 @ 16:40 by Lala Salgado DO) Depression (02/25/12) Hyperlipidemia (Chronic 06/05/15) Type 2 diabetes mellitus (Chronic 02/25/12) Past Surgical History (Last Reviewed 08/09/19 @ 16:40 by Lala Salgado DO) Status post arthroscopy Status post arthroscopy Status post delivery (09/14/02) Status post delivery (01/12/08) Status post laparoscopic cholecystectomy Status post tubal ligation (11/19/13) Visit Care Team Role Provider Type Heidy Chand MD Attending Provider Physician Primary Care Provider Referring Provider Specialty: [facility] Address: [address] [place] [address], [place], [place], [facility] Email: [email or web address] Physical Therapy Initial Evaluation PT-OP-A Visit Information Start: 11/15/19 10:16 Freq: Status: Active Protocol: Document 11/11/19 16:00 (Rec: 11/15/19 10:57 [email or web address]) Out-Patient Physical Therapy Visit Information Visit Information Visit Type Initial Evaluation Visit Start Time 16:00 Visit Stop Time 16:45 Total Visit Minutes 45 Visit Number 1/6 Number of SURG NURSE Visits 0 Evaluation Information Evaluation Date 11/15/19 PT-OP-B Current Condition Start: 11/15/19 10:16 Freq: Status: Active Protocol: Document 11/11/19 16:00 HH (Rec: 11/15/19 10:57 [email or web address]) Current Condition History of Current Condition Onset Date 2 years ago Current Complaints Chronic R shoulder pain, difficult to reach behind her back History of Current Condition Pt is a 49 yo female here with c/o worsening R shoulder pain 910 recently. Pt was here for PT last year for frozen shoulder and her symptoms did get better. However, she c/o her pain has been getting worse recently and she started having significant difficulty reaching behind her back. She described her pain as thobbing sensation located mostly at the top of her R shoulder. she currently has trouble washing her back, opening a tight jar, reaching behind to luci a jacket. She also feelssore to sleep on her R side. She does not c/o any tingling and numbess sensation down to her arm. 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 Pt recently went to see her PCP Dr. Chand who thinks she has RTC tendonopathy. Treatment Goals Patient/Caregiver Goals 1. To be able to reach behind her back fully Prior Functional Status Baseline Function- ADL's Independent Baseline Function- Mobility Independent Current Functional Impairments (Reported) Functional Limitations- ADL's unable to reach behind her back to luci a jacket/ wash behind her back. Personal Factors Other Personal Factors That May Effect Depression Therapy/Recovery DM II Per EMR, pt's fasting blood sugars have been 180-190 range , previously over 200. Pt has not been able to change her diet significantly. PT-OP-C Subjective Start: 11/15/19 10:16 Freq: Status: Active Protocol: Document 11/11/19 16:00 (Rec: 11/15/19 10:57 [email or web address]) OP-PT Subjective Patient Comments Patient Comments 'My R shoulder has been getting worse and i dont know why. Patient Questionnaires Quick Dash- Upper Extremity Quick Dash UE Score 38.64 Quick Dash UE Impairment 20 to 39% Impaired (Score 20- 39) OP-PT Pain Assessment Location R shoulder Pain Location Details top of R shoulder Intensity 9 Scale Used Numeric (1 - 10) Description Aching,Pinching,Pressure Frequency Constant Pain Aggravating Factors Activity,Exercise Pain Alleviating Factors Inactivity PT-OP-E Functional Tests Start: 11/15/19 10:16 Freq: Status: Active Protocol: Document 11/11/19 16:00 (Rec: 11/15/19 10:57 [email or web address]) Functional Tests Apley's Scratch Test Action 2- Left spine of r scapular Action 2- Right spine of L scapular Action 3- Left center of T 5 Action 3- Right R PSIS PT-OP-F Manual Assessment Start: 11/15/19 10:16 Freq: Status: Active Protocol: Document 11/11/19 16:00 (Rec: 11/15/19 10:57 [email or web address]) Manual Assessments Soft Tissue Assessment Soft Tissue Mobility Assessment significant tenderness to pressure at distal supraspinatus tendon and infraspinatus c/o radiating pain to top of R shoulder with pressure on infraspinatus PT-OP-H Neuro Start: 11/15/19 10:16 Freq: Status: Active Protocol: Document 11/11/19 16:00 HH (Rec: 11/15/19 10:57 [email or web address]) Sensation Evaluation Gross Sensation Gross Sensation WNL Deep Tendon Reflex & Clonus Assessment Deep Tendon Reflex Tricep Deep Tendon Reflex 2+ Normal Bilateral Brachioradialis Deep Tendon Reflex 2+ Normal Bilateral Bicep Deep Tendon Reflex 2+ Normal PT-OP-K Range of Motion Start: 11/15/19 10:16 Freq: Status: Active Protocol: Document 11/11/19 16:00 HH (Rec: 11/15/19 10:57 [email or web address]) Cervical Spine Range of Motion Cervical Spine Active Percentage Testing Position Standing ROM Limitations Pain Comments WFL for AROm report of radiating pain to trapezius with extension and extension +rotation Shoulder Goniometric Range of Motion Shoulder Right Active Shoulder ROM WFL Yes External Rotation at 90 degrees 84 Abduction Left Active Shoulder ROM WFL Yes Shoulder ROM Limitations Comments pain noted with end range R shoulder ER (90 shoulder abd and in supine) PT-OP-L Special Tests Start: 11/15/19 10:16 Freq: Status: Active Protocol: Document 11/11/19 16:00 HH (Rec: 11/15/19 10:57 [email or web address]) Special Tests Cervical Spine Special Tests facet joint Test Results +VE B Comments report of radiating pain to trapezius with extension and extension +rotatio Spurling's Test Test Results +VE R Comments report of radiating pain to R trap Foraminal Compression Test Results +ve R Comments report of radiating pain to trapezius Upper Limb Tension Test Test Results +ve R Comments tingling numbness on R forearm / finger without c/s rotation Shoulder Special Tests Apprehension Test Test Results +VE R Comments pain noted at top of R shoulder AC Joint Compression Test Results -ve Passive ER Rotator Cuff Test Results +VE R Speed's Biceps Test Results -ve Harris Raudel Impingement Test Results +VE R Comments pain noted at top of R shoulder Neer Impingement Test Results -ve R Empty Can Test Results -ve PT-OP-M Strength Start: 11/15/19 10:16 Freq: Status: Active Protocol: Document 11/11/19 16:00 HH (Rec: 11/15/19 10:57 [email or web address]) Shoulder Strength Shoulder Manual Muscle Testing Right Flexion 4+ Good+ Extension 5 Normal Abduction (C5) 4+ Good+ Adduction 5 Normal External Rotation 4+ Good+ Internal Rotation 4+ Good+ Left Flexion 5 Normal Extension 5 Normal Abduction (C5) 5 Normal Adduction 5 Normal External Rotation 5 Normal Internal Rotation 5 Normal PT-OP-Q Treatments Start: 11/15/19 10:16 Freq: Status: Active Protocol: Document 11/11/19 16:00 (Rec: 11/15/19 10:57 [email or web address]) Therapeutic Exercises Standing Exercises muscle release Standing Exercise Name use of tennis ball for self release Side right Comments on R infraspinatus, lats for HEP PT-OP-T Assessment and Plan Start: 11/15/19 10:16 Freq: Status: Active Protocol: Document 11/11/19 16:00 (Rec: 11/15/19 10:57 [email or web address]) Physical Therapy Assessment Rehab Potential Rehabilitation Potential Good Evaluation Complexity Number of Personal Factors/Comorbidities 1-2 Number of Body Systems Impaired 1-2 Clinical Presentation at Evaluation Stable Impairments Impairments Functional Activities, Functional Mobility,Pain, Posture,ROM,Sensation,Soft Tissue Mobility,Strength Goals special tests Impairment pt presents cervical radiculopathy signs on R shoulder Animal Cop Goal (LTG) Pt will be symptoms free for special tests (UTTT, cervical facet joint test) in order to improve her neural tension to increase cervical and R UE mobility for functional activities LTG Duration 8 weeks ROM Impairment Pt has significant pain 9/10 to reach behind her back. Fpc Goal (LTG) Pt will be able to reach the center of T4 with R arm in order to luci her clothes/ wash her back in symptoms free . LTG Duration 8 weeks Quickdash Impairment pt scores 38.64 on quickdash Short Term Goal (STG) Pt will score <30 on quickdash to improve her overall functional strength and mobility. STG Duration 4 weeks Animal Cop Goal (LTG) Pt will score <20 on quickdash to improve her overall functional strength and mobility. LTG Duration 8 weeks Assessment Summary Assessment This is moderate complexity evaluation for this 49yo female who presents to clinic with chronic R shoulder pain with uncontrolled DMII as Dr. Chand stated. Pt was being treated for frozen shoulder last year. Upon assessment, pt presents a combination of mild cervical radiculopathy and RTC tendonopathy. Pain is reported with spurling test, foraminal compression test and UTTT for median nerve, along with harris, reaching behind her back and passive ER with shoulder abducted to 90degrees . Althought pt has WFL for all ROM in pain free, however, the combination of extension and IR reproduced her symptoms . Pressure to infraspinatus and distal supraspinatus also reproduced her symptoms. There 's also noticeable posterior capsule tightness which increase anterior translation force to anterior capsule during reaching back motions. Given tennis ball release for infraspinatus and lats for HEP and pt was able to reach further immediately with reduced shoulder pain. Pt will benefit from skilled therapy to improve her shoulder mobility, strength and awareness of management of her sugar level d/t DMII,. Physical Therapy Plan Frequency and Duration Frequency of Treatment 1x/Week Duration of Treatment 8 weeks Plan of Care Start Date 11/11/19 Plan of Care End Date 01/14/20 Therapeutic Interventions Therapeutic Interventions Home Exercise Program,Joint Mobilizations,Manual Therapy, Neuromuscular Re-education, Patient/Caregiver Education, Self-Care/Home Management,Soft Tissue Mobilization,Taping, Therapeutic Activities, Therapeutic Exercises Modalities Cold Pack/Ice Massage,Electric Stimulation,Hot Packs, Infrared Therapy,Ultrasound Next Visit Focus/Plan Next Note Type Treatment Note Next Visit Plan manual release on supraspinatus, infrapsinatus, posterior glide of gh joint cervical traction, T/S mobility UTTt nerve stretch
--- NOTE | 2019-11-16 14:59 | PT.OTN ---
Current Diagnoses Pain in right shoulder (11/16/19) Physical Therapy Treatment Note PT-OP-A Visit Information Start: 11/15/19 10:16 Freq: Status: Active Protocol: Document 11/16/19 13:46 HH (Rec: 11/16/19 14:59 HH [email or web address]) Out-Patient Physical Therapy Visit Information Visit Information Visit Type Treatment Note Visit Start Time 13:46 Visit Stop Time 14:30 Total Visit Minutes 44 Visit Number 2/6 Number of TRAVEL PHYSICAL THERAPIST Visits 0 PT-OP-B Current Condition Start: 11/15/19 10:16 Freq: Status: Active Protocol: Document 11/11/19 16:00 HH (Rec: 11/15/19 10:57 HH [email or web address]) Current Condition History of Current Condition Onset Date 2 years ago Current Complaints Chronic R shoulder pain, difficult to reach behind her back History of Current Condition Pt is a 49 yo female here with c/o worsening R shoulder pain 02/23 recently. Pt was here for PT last year for frozen shoulder and her symptoms did get better. However, she c/o her pain has been getting worse recently and she started having significant difficulty reaching behind her back. She described her pain as thobbing sensation located mostly at the top of her R shoulder. she currently has trouble washing her back, opening a tight jar, reaching behind to luci a jacket. She also feelssore to sleep on her R side. She does not c/o any tingling and numbess sensation down to her arm. 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 Pt recently went to see her PCP Dr. Chand who thinks she has RTC tendonopathy. Treatment Goals Patient/Caregiver Goals 1. To be able to reach behind her back fully Prior Functional Status Baseline Function- ADL's Independent Baseline Function- Mobility Independent Current Functional Impairments (Reported) Functional Limitations- ADL's unable to reach behind her back to luci a jacket/ wash behind her back. Personal Factors Other Personal Factors That May Effect Depression Therapy/Recovery DM II Per EMR, pt's fasting blood sugars have been 180-190 range , previously over 200. Pt has not been able to change her diet significantly. PT-OP-C Subjective Start: 11/15/19 10:16 Freq: Status: Active Protocol: Document 11/16/19 13:46 HH (Rec: 11/16/19 14:59 [email or web address]) OP-PT Subjective Patient Comments Patient Comments I got sore from tennis ball release so i didnt do it as much as prescribed. PT-OP-E Functional Tests Start: 11/15/19 10:16 Freq: Status: Active Protocol: Document 11/11/19 16:00 HH (Rec: 11/15/19 10:57 [email or web address]) Functional Tests Apley's Scratch Test Action 2- Left spine of r scapular Action 2- Right spine of L scapular Action 3- Left center of T 5 Action 3- Right R PSIS PT-OP-F Manual Assessment Start: 11/15/19 10:16 Freq: Status: Active Protocol: Document 11/11/19 16:00 HH (Rec: 11/15/19 10:57 [email or web address]) Manual Assessments Soft Tissue Assessment Soft Tissue Mobility Assessment significant tenderness to pressure at distal supraspinatus tendon and infraspinatus c/o radiating pain to top of R shoulder with pressure on infraspinatus PT-OP-H Neuro Start: 11/15/19 10:16 Freq: Status: Active Protocol: Document 11/11/19 16:00 HH (Rec: 11/15/19 10:57 [email or web address]) Sensation Evaluation Gross Sensation Gross Sensation WNL Deep Tendon Reflex & Clonus Assessment Deep Tendon Reflex Tricep Deep Tendon Reflex 2+ Normal Bilateral Brachioradialis Deep Tendon Reflex 2+ Normal Bilateral Bicep Deep Tendon Reflex 2+ Normal PT-OP-K Range of Motion Start: 11/15/19 10:16 Freq: Status: Active Protocol: Document 11/11/19 16:00 HH (Rec: 11/15/19 10:57 [email or web address]) Cervical Spine Range of Motion Cervical Spine Active Percentage Testing Position Standing ROM Limitations Pain Comments WFL for AROm report of radiating pain to trapezius with extension and extension +rotation Shoulder Goniometric Range of Motion Shoulder Right Active Shoulder ROM WFL Yes External Rotation at 90 degrees 84 Abduction Left Active Shoulder ROM WFL Yes Shoulder ROM Limitations Comments pain noted with end range R shoulder ER (90 shoulder abd and in supine) PT-OP-L Special Tests Start: 11/15/19 10:16 Freq: Status: Active Protocol: Document 11/11/19 16:00 HH (Rec: 11/15/19 10:57 [email or web address]) Special Tests Cervical Spine Special Tests facet joint Test Results +VE B Comments report of radiating pain to trapezius with extension and extension +rotatio Spurling's Test Test Results +VE R Comments report of radiating pain to R trap Foraminal Compression Test Results +ve R Comments report of radiating pain to trapezius Upper Limb Tension Test Test Results +ve R Comments tingling numbness on R forearm / finger without c/s rotation Shoulder Special Tests Apprehension Test Test Results +VE R Comments pain noted at top of R shoulder AC Joint Compression Test Results -ve Passive ER Rotator Cuff Test Results +VE R Speed's Biceps Test Results -ve Soriano Raudel Impingement Test Results +VE R Comments pain noted at top of R shoulder Neer Impingement Test Results -ve R Empty Can Test Results -ve PT-OP-M Strength Start: 11/15/19 10:16 Freq: Status: Active Protocol: Document 11/11/19 16:00 HH (Rec: 11/15/19 10:57 [email or web address]) Shoulder Strength Shoulder Manual Muscle Testing Right Flexion 4+ Good+ Extension 5 Normal Abduction (C5) 4+ Good+ Adduction 5 Normal External Rotation 4+ Good+ Internal Rotation 4+ Good+ Left Flexion 5 Normal Extension 5 Normal Abduction (C5) 5 Normal Adduction 5 Normal External Rotation 5 Normal Internal Rotation 5 Normal PT-OP-Q Treatments Start: 11/15/19 10:16 Freq: Status: Active Protocol: Document 11/16/19 13:46 HH (Rec: 11/16/19 14:59 [email or web address]) Therapeutic Exercises Sitting Exercises c/s lateral flexion Sitting Exercise Name lateral flexion stretch Side right Reps/Minutes 15 secs hold x 2 Standing Exercises median nerve glide Standing Exercise Name with cervical lateral flexion Side right Reps/Minutes 8 x 2 Comments for HEP door stretch Side bilateral Reps/Minutes 10 secs hold x2 muscle release Standing Exercise Name use of tennis ball for self release Side right Comments on R infraspinatus, lats and suboccipitals for HEP Manual Therapy Treatment Soft Tissue Mobilization suboccipital Mobilization Type Sustained Pressure,Trigger Point Release Intensity/Depth Moderate Body Position Supine levator scap Mobilization Type Sustained Pressure,Trigger Point Release Intensity/Depth Moderate Body Position Sidelying Lats Mobilization Type Sustained Pressure,Trigger Point Release Intensity/Depth Moderate Body Position Sidelying RTC Mobilization Type Myofascial Release,Sustained Pressure,Trigger Point Release Intensity/Depth Moderate Body Position Sidelying Comments infraspinatus and teres minor Joint Mobilizations post glide Joint R GH joint Direction post Grade II Body Position Supine Reps/Duration 2 mins Comments with R ER Manual Traction C/S Body Position Supine Reps/Duration 10 secs hold x4 PT-OP-T Assessment and Plan Start: 11/15/19 10:16 Freq: Status: Active Protocol: Document 11/16/19 13:46 HH (Rec: 11/16/19 14:59 HH [email or web address]) Physical Therapy Assessment Goals special tests Impairment pt presents cervical radiculopathy signs on R shoulder Trench Digger Goal (LTG) Pt will be symptoms free for special tests (UTTT, cervical facet joint test) in order to improve her neural tension to increase cervical and R UE mobility for functional activities LTG Duration 8 weeks ROM Impairment Pt has significant pain 9/10 to reach behind her back. Trench Digger Goal (LTG) Pt will be able to reach the center of T4 with R arm in order to luci her clothes/ wash her back in symptoms free . LTG Duration 8 weeks Quickdash Impairment pt scores 38.64 on quickdash Short Term Goal (STG) Pt will score <30 on quickdash to improve her overall functional strength and mobility. STG Duration 4 weeks Custodial Goal (LTG) Pt will score <20 on quickdash to improve her overall functional strength and mobility. LTG Duration 8 weeks Assessment Summary Assessment Pt has soreness the past few days with tennis ball release. educated pt to monitor her symptoms and reduce frequency if soreness >2 days. Added nerve glide, neck stretch, pec stretch for HEP. Physical Therapy Plan Next Visit Focus/Plan Next Note Type Treatment Note Next Visit Plan check scap movements. manual release on supraspinatus, infrapsinatus, posterior glide of gh joint cervical traction, T/S mobility UTTt nerve stretch
--- NOTE | 2019-11-25 13:36 | PT.OTN ---
Current Diagnoses Pain in right shoulder (11/25/19) Physical Therapy Treatment Note PT-OP-A Visit Information Start: 11/15/19 10:16 Freq: Status: Active Protocol: Document 11/25/19 13:26 HH (Rec: 11/25/19 13:35 HH [email or web address]) Out-Patient Physical Therapy Visit Information Visit Information Visit Type Treatment Note Visit Start Time 09:45 Visit Stop Time 10:30 Total Visit Minutes 45 Visit Number 3/6 Number of MERCHANDISE PRESENTATION MANAGER Visits 0 PT-OP-B Current Condition Start: 11/15/19 10:16 Freq: Status: Active Protocol: Document 11/11/19 16:00 HH (Rec: 11/15/19 10:57 HH [email or web address]) Current Condition History of Current Condition Onset Date 2 years ago Current Complaints Chronic R shoulder pain, difficult to reach behind her back History of Current Condition Pt is a 49 yo female here with c/o worsening R shoulder pain 02/23 recently. Pt was here for PT last year for frozen shoulder and her symptoms did get better. However, she c/o her pain has been getting worse recently and she started having significant difficulty reaching behind her back. She described her pain as thobbing sensation located mostly at the top of her R shoulder. she currently has trouble washing her back, opening a tight jar, reaching behind to luci a jacket. She also feelssore to sleep on her R side. She does not c/o any tingling and numbess sensation down to her arm. 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 Pt recently went to see her PCP Dr. Chand who thinks she has RTC tendonopathy. Treatment Goals Patient/Caregiver Goals 1. To be able to reach behind her back fully Prior Functional Status Baseline Function- ADL's Independent Baseline Function- Mobility Independent Current Functional Impairments (Reported) Functional Limitations- ADL's unable to reach behind her back to luci a jacket/ wash behind her back. Personal Factors Other Personal Factors That May Effect Depression Therapy/Recovery DM II Per EMR, pt's fasting blood sugars have been 180-190 range , previously over 200. Pt has not been able to change her diet significantly. PT-OP-C Subjective Start: 11/15/19 10:16 Freq: Status: Active Protocol: Document 11/25/19 13:26 HH (Rec: 11/25/19 13:35 [email or web address]) OP-PT Subjective Patient Comments Patient Comments I got headaches for two days during weekend after i did a lot of cleaning. My hands went numb and tingly after driving to [place]. PT-OP-E Functional Tests Start: 11/15/19 10:16 Freq: Status: Active Protocol: Document 11/11/19 16:00 HH (Rec: 11/15/19 10:57 [email or web address]) Functional Tests Apley's Scratch Test Action 2- Left spine of r scapular Action 2- Right spine of L scapular Action 3- Left center of T 5 Action 3- Right R PSIS PT-OP-F Manual Assessment Start: 11/15/19 10:16 Freq: Status: Active Protocol: Document 11/11/19 16:00 (Rec: 11/15/19 10:57 [email or web address]) Manual Assessments Soft Tissue Assessment Soft Tissue Mobility Assessment significant tenderness to pressure at distal supraspinatus tendon and infraspinatus c/o radiating pain to top of R shoulder with pressure on infraspinatus PT-OP-H Neuro Start: 11/15/19 10:16 Freq: Status: Active Protocol: Document 11/11/19 16:00 HH (Rec: 11/15/19 10:57 [email or web address]) Sensation Evaluation Gross Sensation Gross Sensation WNL Deep Tendon Reflex & Clonus Assessment Deep Tendon Reflex Tricep Deep Tendon Reflex 2+ Normal Bilateral Brachioradialis Deep Tendon Reflex 2+ Normal Bilateral Bicep Deep Tendon Reflex 2+ Normal PT-OP-K Range of Motion Start: 11/15/19 10:16 Freq: Status: Active Protocol: Document 11/11/19 16:00 HH (Rec: 11/15/19 10:57 [email or web address]) Cervical Spine Range of Motion Cervical Spine Active Percentage Testing Position Standing ROM Limitations Pain Comments WFL for AROm report of radiating pain to trapezius with extension and extension +rotation Shoulder Goniometric Range of Motion Shoulder Right Active Shoulder ROM WFL Yes External Rotation at 90 degrees 84 Abduction Left Active Shoulder ROM WFL Yes Shoulder ROM Limitations Comments pain noted with end range R shoulder ER (90 shoulder abd and in supine) PT-OP-L Special Tests Start: 11/15/19 10:16 Freq: Status: Active Protocol: Document 11/11/19 16:00 HH (Rec: 11/15/19 10:57 [email or web address]) Special Tests Cervical Spine Special Tests facet joint Test Results +VE B Comments report of radiating pain to trapezius with extension and extension +rotatio Spurling's Test Test Results +VE R Comments report of radiating pain to R trap Foraminal Compression Test Results +ve R Comments report of radiating pain to trapezius Upper Limb Tension Test Test Results +ve R Comments tingling numbness on R forearm / finger without c/s rotation Shoulder Special Tests Apprehension Test Test Results +VE R Comments pain noted at top of R shoulder AC Joint Compression Test Results -ve Passive ER Rotator Cuff Test Results +VE R Speed's Biceps Test Results -ve Soriano Raudel Impingement Test Results +VE R Comments pain noted at top of R shoulder Neer Impingement Test Results -ve R Empty Can Test Results -ve PT-OP-M Strength Start: 11/15/19 10:16 Freq: Status: Active Protocol: Document 11/11/19 16:00 (Rec: 11/15/19 10:57 [email or web address]) Shoulder Strength Shoulder Manual Muscle Testing Right Flexion 4+ Good+ Extension 5 Normal Abduction (C5) 4+ Good+ Adduction 5 Normal External Rotation 4+ Good+ Internal Rotation 4+ Good+ Left Flexion 5 Normal Extension 5 Normal Abduction (C5) 5 Normal Adduction 5 Normal External Rotation 5 Normal Internal Rotation 5 Normal PT-OP-Q Treatments Start: 11/15/19 10:16 Freq: Status: Active Protocol: Document 11/25/19 13:26 HH (Rec: 11/25/19 13:35 [email or web address]) Therapeutic Exercises Sidelying Exercises open book Sidelying Exercise Name with cervical rotation Side bilateral Reps/Minutes 12 x 2 Comments hip block Standing Exercises median nerve glide Standing Exercise Name with cervical lateral flexion Side right Reps/Minutes 8 x 2 Comments for HEP door stretch Side bilateral Reps/Minutes 10 secs hold x2 Manual Therapy Treatment Soft Tissue Mobilization Pec Body Location R pectoralis Mobilization Type Sustained Pressure,Trigger Point Release Intensity/Depth Moderate Body Position Supine Comments significant pain with pressure on proximal pec. Pain improved after manual work and able to increase R trunk rotation. suboccipital Mobilization Type Sustained Pressure,Trigger Point Release Intensity/Depth Moderate Body Position Supine levator scap Mobilization Type Sustained Pressure,Trigger Point Release Intensity/Depth Moderate Body Position Sidelying RTC Mobilization Type Myofascial Release,Sustained Pressure,Trigger Point Release Intensity/Depth Moderate Body Position Sidelying Comments infraspinatus and teres minor Manual Traction C/S Body Position Supine Reps/Duration 10 secs hold x4 PT-OP-T Assessment and Plan Start: 11/15/19 10:16 Freq: Status: Active Protocol: Document 11/25/19 13:26 HH (Rec: 11/25/19 13:35 HH [email or web address]) Physical Therapy Assessment Goals neck instability Impairment neck flexion hold 20s Senior Living Goal (LTG) Pt will improve her deep cervical flexion strength and endurance > 40 s without discomfrot. LTG Duration 8 weeks special tests Impairment pt presents cervical radiculopathy signs on R shoulder Lead Atg Developer Goal (LTG) Pt will be symptoms free for special tests (UTTT, cervical facet joint test) in order to improve her neural tension to increase cervical and R UE mobility for functional activities LTG Duration 8 weeks ROM Impairment Pt has significant pain 9/10 to reach behind her back. Lead Atg Developer Goal (LTG) Pt will be able to reach the center of T4 with R arm in order to luci her clothes/ wash her back in symptoms free . LTG Duration 8 weeks Quickdash Impairment pt scores 38.64 on quickdash Short Term Goal (STG) Pt will score <30 on quickdash to improve her overall functional strength and mobility. STG Duration 4 weeks Lead Atg Developer Goal (LTG) Pt will score <20 on quickdash to improve her overall functional strength and mobility. LTG Duration 8 weeks Assessment Summary Assessment Pt has very limited wrist flexion and r trunk rotation but significant improved after manual therapy at R proximal pectoralis. Recommended pt to use her theragun or door stretch to reduce muscular tensino Physical Therapy Plan Next Visit Focus/Plan Next Note Type Treatment Note Next Visit Plan STM on R pec, post glide of GHJ, supraspinatur, neck stability ex, strengthening of scap
--- NOTE | 2019-12-09 09:03 | PT.OTN ---
Current Diagnoses Pain in right shoulder (12/09/19) Physical Therapy Treatment Note PT-OP-A Visit Information Start: 11/15/19 10:16 Freq: Status: Active Protocol: Document 12/09/19 08:17 (Rec: 12/09/19 09:03 [id number]) Out-Patient Physical Therapy Visit Information Visit Information Visit Type Treatment Note Visit Start Time 08:18 Visit Stop Time 09:00 Total Visit Minutes 42 Visit Number 4/6 Number of PROTECTION OFFICER Visits 0 PT-OP-B Current Condition Start: 11/15/19 10:16 Freq: Status: Active Protocol: Document 11/11/19 16:00 HH (Rec: 11/15/19 10:57 [email or web address]) Current Condition History of Current Condition Onset Date 2 years ago Current Complaints Chronic R shoulder pain, difficult to reach behind her back History of Current Condition Pt is a 49 yo female here with c/o worsening R shoulder pain 02/23 recently. Pt was here for PT last year for frozen shoulder and her symptoms did get better. However, she c/o her pain has been getting worse recently and she started having significant difficulty reaching behind her back. She described her pain as thobbing sensation located mostly at the top of her R shoulder. she currently has trouble washing her back, opening a tight jar, reaching behind to luci a jacket. She also feelssore to sleep on her R side. She does not c/o any tingling and numbess sensation down to her arm. 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 Pt recently went to see her PCP Dr. Chand who thinks she has RTC tendonopathy. Treatment Goals Patient/Caregiver Goals 1. To be able to reach behind her back fully Prior Functional Status Baseline Function- ADL's Independent Baseline Function- Mobility Independent Current Functional Impairments (Reported) Functional Limitations- ADL's unable to reach behind her back to luci a jacket/ wash behind her back. Personal Factors Other Personal Factors That May Effect Depression Therapy/Recovery DM II Per EMR, pt's fasting blood sugars have been 180-190 range , previously over 200. Pt has not been able to change her diet significantly. PT-OP-C Subjective Start: 11/15/19 10:16 Freq: Status: Active Protocol: Document 12/09/19 08:17 HH (Rec: 12/09/19 09:03 [id number]) OP-PT Subjective Patient Comments Patient Comments My R shoulder has been getting better and i can reach behind my back further. but my L shoulder start to bother me especailly reaching to my R side. Patient Reported Progress Improving PT-OP-E Functional Tests Start: 11/15/19 10:16 Freq: Status: Active Protocol: Document 11/11/19 16:00 (Rec: 11/15/19 10:57 [email or web address]) Functional Tests Apley's Scratch Test Action 2- Left spine of r scapular Action 2- Right spine of L scapular Action 3- Left center of T 5 Action 3- Right R PSIS PT-OP-F Manual Assessment Start: 11/15/19 10:16 Freq: Status: Active Protocol: Document 11/11/19 16:00 (Rec: 11/15/19 10:57 [email or web address]) Manual Assessments Soft Tissue Assessment Soft Tissue Mobility Assessment significant tenderness to pressure at distal supraspinatus tendon and infraspinatus c/o radiating pain to top of R shoulder with pressure on infraspinatus PT-OP-H Neuro Start: 11/15/19 10:16 Freq: Status: Active Protocol: Document 11/11/19 16:00 (Rec: 11/15/19 10:57 [email or web address]) Sensation Evaluation Gross Sensation Gross Sensation WNL Deep Tendon Reflex & Clonus Assessment Deep Tendon Reflex Tricep Deep Tendon Reflex 2+ Normal Bilateral Brachioradialis Deep Tendon Reflex 2+ Normal Bilateral Bicep Deep Tendon Reflex 2+ Normal PT-OP-K Range of Motion Start: 11/15/19 10:16 Freq: Status: Active Protocol: Document 11/11/19 16:00 (Rec: 11/15/19 10:57 [email or web address]) Cervical Spine Range of Motion Cervical Spine Active Percentage Testing Position Standing ROM Limitations Pain Comments WFL for AROm report of radiating pain to trapezius with extension and extension +rotation Shoulder Goniometric Range of Motion Shoulder Right Active Shoulder ROM WFL Yes External Rotation at 90 degrees 84 Abduction Left Active Shoulder ROM WFL Yes Shoulder ROM Limitations Comments pain noted with end range R shoulder ER (90 shoulder abd and in supine) PT-OP-L Special Tests Start: 11/15/19 10:16 Freq: Status: Active Protocol: Document 11/11/19 16:00 HH (Rec: 11/15/19 10:57 [email or web address]) Special Tests Cervical Spine Special Tests facet joint Test Results +VE B Comments report of radiating pain to trapezius with extension and extension +rotatio Spurling's Test Test Results +VE R Comments report of radiating pain to R trap Foraminal Compression Test Results +ve R Comments report of radiating pain to trapezius Upper Limb Tension Test Test Results +ve R Comments tingling numbness on R forearm / finger without c/s rotation Shoulder Special Tests Apprehension Test Test Results +VE R Comments pain noted at top of R shoulder AC Joint Compression Test Results -ve Passive ER Rotator Cuff Test Results +VE R Speed's Biceps Test Results -ve Soriano Raudel Impingement Test Results +VE R Comments pain noted at top of R shoulder Neer Impingement Test Results -ve R Empty Can Test Results -ve PT-OP-M Strength Start: 11/15/19 10:16 Freq: Status: Active Protocol: Document 11/11/19 16:00 (Rec: 11/15/19 10:57 [email or web address]) Shoulder Strength Shoulder Manual Muscle Testing Right Flexion 4+ Good+ Extension 5 Normal Abduction (C5) 4+ Good+ Adduction 5 Normal External Rotation 4+ Good+ Internal Rotation 4+ Good+ Left Flexion 5 Normal Extension 5 Normal Abduction (C5) 5 Normal Adduction 5 Normal External Rotation 5 Normal Internal Rotation 5 Normal PT-OP-Q Treatments Start: 11/15/19 10:16 Freq: Status: Active Protocol: Document 12/09/19 08:17 (Rec: 12/09/19 09:03 [id number]) Therapeutic Exercises Supine Exercises supine thoracic extension Side bilateral Equipment Used foam roller Reps/Minutes 10 x 2 Comments cues on thoracic extension only Sidelying Exercises open book Sidelying Exercise Name with cervical rotation Side bilateral Reps/Minutes 12 x 2 Comments hip block Standing Exercises door stretch Standing Exercise Name angle arms at 125 abd Side bilateral Reps/Minutes 10 secs hold x8 Comments review HEP Manual Therapy Treatment Soft Tissue Mobilization subscap Body Location R side Mobilization Type Myofascial Release,Sustained Pressure,Trigger Point Release Intensity/Depth Moderate Body Position Supine Pec Body Location R pectoralis Mobilization Type Sustained Pressure,Trigger Point Release Intensity/Depth Moderate Body Position Supine Comments mild pain with pressure on proximal pec. Pain improved after manual work and able to increase R trunk rotation. Joint Mobilizations PA mob Joint TP and SP Direction PA Grade II Body Position Prone Reps/Duration 8 mins Comments PA mob for T1-T6 post glide Joint R GH joint Direction post Grade II Body Position Supine Reps/Duration 2 mins Comments with R ER PT-OP-T Assessment and Plan Start: 11/15/19 10:16 Freq: Status: Active Protocol: Document 12/09/19 08:17 (Rec: 12/09/19 09:03 [id number]) Physical Therapy Assessment Goals neck instability Impairment neck flexion hold 20s Residential Goal (LTG) Pt will improve her deep cervical flexion strength and endurance > 40 s without discomfrot. LTG Duration 8 weeks special tests Impairment pt presents cervical radiculopathy signs on R shoulder Residential Goal (LTG) Pt will be symptoms free for special tests (UTTT, cervical facet joint test) in order to improve her neural tension to increase cervical and R UE mobility for functional activities LTG Duration 8 weeks ROM Impairment Pt has significant pain 9/10 to reach behind her back. Residential Goal (LTG) Pt will be able to reach the center of T4 with R arm in order to luci her clothes/ wash her back in symptoms free . LTG Duration 8 weeks Quickdash Impairment pt scores 38.64 on quickdash Short Term Goal (STG) Pt will score <30 on quickdash to improve her overall functional strength and mobility. STG Duration 4 weeks Interviewing Clerk Goal (LTG) Pt will score <20 on quickdash to improve her overall functional strength and mobility. LTG Duration 8 weeks Assessment Summary Assessment Pt shows improvement with pain level and mobility to reach behind her back to L1 However, pt cont to have cervical radiculopathy symptoms possibly d/t limited thoracic extension Tx focused on T- spine mobility and RTC release . Pt has 2 more visits left and recommended her to reschedule once every 2 weeks. Physical Therapy Plan Next Visit Focus/Plan Next Note Type Treatment Note Next Visit Plan STM on R pec, post glide of GHJ, supraspinatur, T spine mobility neck stability ex, strengthening of scap
--- NOTE | 2019-12-20 09:46 | PT.OTN ---
Current Diagnoses Pain in right shoulder (12/20/19) Physical Therapy Treatment Note PT-OP-A Visit Information Start: 11/15/19 10:16 Freq: Status: Active Protocol: Document 12/20/19 09:03 (Rec: 12/20/19 09:46 [id number]) Out-Patient Physical Therapy Visit Information Visit Information Visit Type Treatment Note Visit Start Time 09:03 Visit Stop Time 09:45 Total Visit Minutes 42 Visit Number 5/6 Number of CREAM GATHERER Visits 0 PT-OP-B Current Condition Start: 11/15/19 10:16 Freq: Status: Active Protocol: Document 11/11/19 16:00 HH (Rec: 11/15/19 10:57 [email or web address]) Current Condition History of Current Condition Onset Date 2 years ago Current Complaints Chronic R shoulder pain, difficult to reach behind her back History of Current Condition Pt is a 49 yo female here with c/o worsening R shoulder pain 02/23 recently. Pt was here for PT last year for frozen shoulder and her symptoms did get better. However, she c/o her pain has been getting worse recently and she started having significant difficulty reaching behind her back. She described her pain as thobbing sensation located mostly at the top of her R shoulder. she currently has trouble washing her back, opening a tight jar, reaching behind to luci a jacket. She also feelssore to sleep on her R side. She does not c/o any tingling and numbess sensation down to her arm. 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 Pt recently went to see her PCP Dr. Chnad who thinks she has RTC tendonopathy. Treatment Goals Patient/Caregiver Goals 1. To be able to reach behind her back fully Prior Functional Status Baseline Function- ADL's Independent Baseline Function- Mobility Independent Current Functional Impairments (Reported) Functional Limitations- ADL's unable to reach behind her back to luci a jacket/ wash behind her back. Personal Factors Other Personal Factors That May Effect Depression Therapy/Recovery DM II Per EMR, pt's fasting blood sugars have been 180-190 range , previously over 200. Pt has not been able to change her diet significantly. PT-OP-C Subjective Start: 11/15/19 10:16 Freq: Status: Active Protocol: Document 12/20/19 09:03 HH (Rec: 12/20/19 09:46 [id number]) OP-PT Subjective Patient Comments Patient Comments My shoulder is doing better. Definitely not regression. And I can reach better. And i dont have any tingling and numbness in my arms as well. My sleep got better too Patient Reported Progress Improving PT-OP-E Functional Tests Start: 11/15/19 10:16 Freq: Status: Active Protocol: Document 11/11/19 16:00 (Rec: 11/15/19 10:57 [email or web address]) Functional Tests Apley's Scratch Test Action 2- Left spine of r scapular Action 2- Right spine of L scapular Action 3- Left center of T 5 Action 3- Right R PSIS PT-OP-F Manual Assessment Start: 11/15/19 10:16 Freq: Status: Active Protocol: Document 11/11/19 16:00 (Rec: 11/15/19 10:57 [email or web address]) Manual Assessments Soft Tissue Assessment Soft Tissue Mobility Assessment significant tenderness to pressure at distal supraspinatus tendon and infraspinatus c/o radiating pain to top of R shoulder with pressure on infraspinatus PT-OP-H Neuro Start: 11/15/19 10:16 Freq: Status: Active Protocol: Document 11/11/19 16:00 (Rec: 11/15/19 10:57 [email or web address]) Sensation Evaluation Gross Sensation Gross Sensation WNL Deep Tendon Reflex & Clonus Assessment Deep Tendon Reflex Tricep Deep Tendon Reflex 2+ Normal Bilateral Brachioradialis Deep Tendon Reflex 2+ Normal Bilateral Bicep Deep Tendon Reflex 2+ Normal PT-OP-K Range of Motion Start: 11/15/19 10:16 Freq: Status: Active Protocol: Document 11/11/19 16:00 (Rec: 11/15/19 10:57 [email or web address]) Cervical Spine Range of Motion Cervical Spine Active Percentage Testing Position Standing ROM Limitations Pain Comments WFL for AROm report of radiating pain to trapezius with extension and extension +rotation Shoulder Goniometric Range of Motion Shoulder Right Active Shoulder ROM WFL Yes External Rotation at 90 degrees 84 Abduction Left Active Shoulder ROM WFL Yes Shoulder ROM Limitations Comments pain noted with end range R shoulder ER (90 shoulder abd and in supine) PT-OP-L Special Tests Start: 11/15/19 10:16 Freq: Status: Active Protocol: Document 11/11/19 16:00 (Rec: 11/15/19 10:57 [email or web address]) Special Tests Cervical Spine Special Tests facet joint Test Results +VE B Comments report of radiating pain to trapezius with extension and extension +rotatio Spurling's Test Test Results +VE R Comments report of radiating pain to R trap Foraminal Compression Test Results +ve R Comments report of radiating pain to trapezius Upper Limb Tension Test Test Results +ve R Comments tingling numbness on R forearm / finger without c/s rotation Shoulder Special Tests Apprehension Test Test Results +VE R Comments pain noted at top of R shoulder AC Joint Compression Test Results -ve Passive ER Rotator Cuff Test Results +VE R Speed's Biceps Test Results -ve Soriano Raudel Impingement Test Results +VE R Comments pain noted at top of R shoulder Neer Impingement Test Results -ve R Empty Can Test Results -ve PT-OP-M Strength Start: 11/15/19 10:16 Freq: Status: Active Protocol: Document 11/11/19 16:00 (Rec: 11/15/19 10:57 [email or web address]) Shoulder Strength Shoulder Manual Muscle Testing Right Flexion 4+ Good+ Extension 5 Normal Abduction (C5) 4+ Good+ Adduction 5 Normal External Rotation 4+ Good+ Internal Rotation 4+ Good+ Left Flexion 5 Normal Extension 5 Normal Abduction (C5) 5 Normal Adduction 5 Normal External Rotation 5 Normal Internal Rotation 5 Normal PT-OP-Q Treatments Start: 11/15/19 10:16 Freq: Status: Active Protocol: Document 12/20/19 09:03 (Rec: 12/20/19 09:46 [id number]) Therapeutic Exercises Supine Exercises supine thoracic extension Side bilateral Equipment Used foam roller Reps/Minutes 10 x 2 Comments cues on thoracic extension only Prone Exercises prayer stretch Prone Exercise Name for shoulder flexion Side bilateral Equipment Used foam roller Reps/Minutes 8 x 2 Comments child pose position Sidelying Exercises scap hor abd Side right Equipment Used 2lbs Reps/Minutes 10 x2 Comments cues scap squeeze open book Sidelying Exercise Name with cervical rotation Side bilateral Reps/Minutes 12 x 2 Comments hip block Standing Exercises scap squeeze and extension Side bilateral Equipment Used level 1 band Reps/Minutes 8 x 2 Comments scap squeeze first then shoulder ext Manual Therapy Treatment Soft Tissue Mobilization subscap Body Location R side Mobilization Type Myofascial Release,Sustained Pressure,Trigger Point Release Intensity/Depth Moderate Body Position Supine Pec Body Location R pectoralis Mobilization Type Sustained Pressure,Trigger Point Release Intensity/Depth Moderate Body Position Supine Comments mild pain with pressure on proximal pec. Pain improved after manual work and able to increase R trunk rotation. suboccipital Mobilization Type Sustained Pressure,Trigger Point Release Intensity/Depth Moderate Body Position Supine levator scap Mobilization Type Sustained Pressure,Trigger Point Release Intensity/Depth Moderate Body Position Sidelying RTC Mobilization Type Myofascial Release,Sustained Pressure,Trigger Point Release Intensity/Depth Moderate Body Position Sidelying Comments infraspinatus and teres minor Joint Mobilizations PA mob Joint TP and SP Direction PA Grade II Body Position Prone Reps/Duration 8 mins Comments PA mob for T1-T6 PT-OP-T Assessment and Plan Start: 11/15/19 10:16 Freq: Status: Active Protocol: Document 12/20/19 09:03 (Rec: 12/20/19 09:46 [id number]) Physical Therapy Assessment Goals neck instability Impairment neck flexion hold 20s Care Home Goal (LTG) Pt will improve her deep cervical flexion strength and endurance > 40 s without discomfrot. LTG Duration 8 weeks special tests Impairment pt presents cervical radiculopathy signs on R shoulder Family Consumer Science Fcs Teacher Goal (LTG) Pt will be symptoms free for special tests (UTTT, cervical facet joint test) in order to improve her neural tension to increase cervical and R UE mobility for functional activities LTG Duration 8 weeks ROM Impairment Pt has significant pain 9/10 to reach behind her back. Care Home Goal (LTG) Pt will be able to reach the center of T4 with R arm in order to luci her clothes/ wash her back in symptoms free . LTG Duration 8 weeks Quickdash Impairment pt scores 38.64 on quickdash Short Term Goal (STG) Pt will score <30 on quickdash to improve her overall functional strength and mobility. STG Duration 4 weeks Care Home Goal (LTG) Pt will score <20 on quickdash to improve her overall functional strength and mobility. LTG Duration 8 weeks Assessment Summary Assessment Pt has less pain, improved ROM and no tingling/ numbness recently. POC is now focusing on scap strengthening and T/s mobility. Expect to d/c pt next visit. Physical Therapy Plan Next Visit Focus/Plan Next Note Type Treatment Note Next Visit Plan STM on R pec, post glide of GHJ, supraspinatur, T spine mobility neck stability ex, strengthening of scap hor abd, abd, scap squeeze and ext
--- NOTE | 2020-01-03 12:11 | PT.OPPOC ---
Physical, Occupational & Speech Therapy At [facility] Current Diagnoses Pain in right shoulder (01/03/20) Visit Care Team Role Provider Type Heidy Chand MD Attending Provider Physician Primary Care Provider Referring Provider Specialty: Family Practice Address: [address] [place] [address], [facility] [place], [address] Email: [email or web address] Plan Of Care PT-OP-T Assessment and Plan Start: 11/15/19 10:16 Freq: Status: Active Protocol: Document 01/03/20 08:20 (Rec: 01/03/20 09:03 [id number]) Physical Therapy Assessment Goals neck instability Impairment neck flexion hold 20s Medical Claims Analyst Goal (LTG) Pt will improve her deep cervical flexion strength and endurance > 40 s without discomfrot. LTG Duration 8 weeks special tests Impairment pt presents cervical radiculopathy signs on R shoulder Medical Claims Analyst Goal (LTG) 01/02 goal met Pt is now neurological symptoms free Pt will be symptoms free for special tests (UTTT, cervical facet joint test) in order to improve her neural tension to increase cervical and R UE mobility for functional activities LTG Duration 8 weeks ROM Impairment Pt has significant pain 9/10 to reach behind her back. Mcc Goal (LTG) 01/02 pt is able to reach T8 with minimal pain. Able to luci/doff her bra with minimal discomfort Pt will be able to reach the center of T4 with R arm in order to luci her clothes/ wash her back in symptoms free . LTG Duration 8 weeks Quickdash Impairment pt scores 38.64 on quickdash Short Term Goal (STG) Pt will score <30 on quickdash to improve her overall functional strength and mobility. STG Duration 4 weeks Medical Claims Analyst Goal (LTG) 01/02 did not assess Pt will score <20 on quickdash to improve her overall functional strength and mobility. LTG Duration 8 weeks Assessment Summary Assessment Pt que in her X ray result from last week. 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 Her orthopedist gave her a cortisone shot and recommended cont with PT because of her good progression. Pt has been showing improvements in pain and body awareness. She stated she is 75% better at this point and would cont benefit from skilled therapy for another month to strengthen her RTC and scap stabilizers. Physical Therapy Plan Frequency and Duration Frequency of Treatment 1x/Week Duration of Treatment 4 weeks Plan of Care Start Date 01/03/20 Plan of Care End Date 02/02/20 Next Visit Focus/Plan Next Note Type Treatment Note Next Visit Plan STM on R pec, post glide of GHJ, supraspinatur, T spine mobility neck stability ex, strengthening of scap hor abd, abd, scap squeeze and ext pull apart strengthening focused Plan of Care Dates Plan of Care Start Date 01/03/20 Plan of Care End Date 02/02/20 Electronically Signed by: Cholo Gorman PT 01/03/20 1211 Please Sign and Return: I have reviewed this Plan of Care and certify that the skilled therapy services above are required to meet the patient?s needs. Physician Signature Date Printed Name and Credentials Clinical Instructor Signature Printed Name and Credentials
--- NOTE | 2020-01-03 12:12 | PT.OTN ---
Current Diagnoses Pain in right shoulder (01/03/20) Physical Therapy Treatment Note PT-OP-A Visit Information Start: 11/15/19 10:16 Freq: Status: Active Protocol: Document 01/03/20 08:20 (Rec: 01/03/20 09:03 [id number]) Out-Patient Physical Therapy Visit Information Visit Information Visit Type Treatment Note Visit Start Time 08:16 Visit Stop Time 09:00 Total Visit Minutes 44 Visit Number 6/6 Number of PAPER STEAMER Visits 0 PT-OP-B Current Condition Start: 11/15/19 10:16 Freq: Status: Active Protocol: Document 11/11/19 16:00 HH (Rec: 11/15/19 10:57 [email or web address]) Current Condition History of Current Condition Onset Date 2 years ago Current Complaints Chronic R shoulder pain, difficult to reach behind her back History of Current Condition Pt is a 49 yo female here with c/o worsening R shoulder pain 02/23 recently. Pt was here for PT last year for frozen shoulder and her symptoms did get better. However, she c/o her pain has been getting worse recently and she started having significant difficulty reaching behind her back. She described her pain as thobbing sensation located mostly at the top of her R shoulder. she currently has trouble washing her back, opening a tight jar, reaching behind to luci a jacket. She also feelssore to sleep on her R side. She does not c/o any tingling and numbess sensation down to her arm. 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 Pt recently went to see her PCP Dr. Chand who thinks she has RTC tendonopathy. Treatment Goals Patient/Caregiver Goals 1. To be able to reach behind her back fully Prior Functional Status Baseline Function- ADL's Independent Baseline Function- Mobility Independent Current Functional Impairments (Reported) Functional Limitations- ADL's unable to reach behind her back to luci a jacket/ wash behind her back. Personal Factors Other Personal Factors That May Effect Depression Therapy/Recovery DM II Per EMR, pt's fasting blood sugars have been 180-190 range , previously over 200. Pt has not been able to change her diet significantly. PT-OP-C Subjective Start: 11/15/19 10:16 Freq: Status: Active Protocol: Document 01/03/20 08:20 HH (Rec: 01/03/20 09:03 [id number]) OP-PT Subjective Patient Comments Patient Comments Im feeling better lately. I feel better reaching for things and feeling stronger. Im 75% better now so far. Patient Reported Progress Improving PT-OP-E Functional Tests Start: 11/15/19 10:16 Freq: Status: Active Protocol: Document 11/11/19 16:00 (Rec: 11/15/19 10:57 [email or web address]) Functional Tests Apley's Scratch Test Action 2- Left spine of r scapular Action 2- Right spine of L scapular Action 3- Left center of T 5 Action 3- Right R PSIS PT-OP-F Manual Assessment Start: 11/15/19 10:16 Freq: Status: Active Protocol: Document 11/11/19 16:00 (Rec: 11/15/19 10:57 [email or web address]) Manual Assessments Soft Tissue Assessment Soft Tissue Mobility Assessment significant tenderness to pressure at distal supraspinatus tendon and infraspinatus c/o radiating pain to top of R shoulder with pressure on infraspinatus PT-OP-H Neuro Start: 11/15/19 10:16 Freq: Status: Active Protocol: Document 11/11/19 16:00 (Rec: 11/15/19 10:57 [email or web address]) Sensation Evaluation Gross Sensation Gross Sensation WNL Deep Tendon Reflex & Clonus Assessment Deep Tendon Reflex Tricep Deep Tendon Reflex 2+ Normal Bilateral Brachioradialis Deep Tendon Reflex 2+ Normal Bilateral Bicep Deep Tendon Reflex 2+ Normal PT-OP-K Range of Motion Start: 11/15/19 10:16 Freq: Status: Active Protocol: Document 11/11/19 16:00 (Rec: 11/15/19 10:57 [email or web address]) Cervical Spine Range of Motion Cervical Spine Active Percentage Testing Position Standing ROM Limitations Pain Comments WFL for AROm report of radiating pain to trapezius with extension and extension +rotation Shoulder Goniometric Range of Motion Shoulder Right Active Shoulder ROM WFL Yes External Rotation at 90 degrees 84 Abduction Left Active Shoulder ROM WFL Yes Shoulder ROM Limitations Comments pain noted with end range R shoulder ER (90 shoulder abd and in supine) PT-OP-L Special Tests Start: 11/15/19 10:16 Freq: Status: Active Protocol: Document 11/11/19 16:00 (Rec: 11/15/19 10:57 [email or web address]) Special Tests Cervical Spine Special Tests facet joint Test Results +VE B Comments report of radiating pain to trapezius with extension and extension +rotatio Spurling's Test Test Results +VE R Comments report of radiating pain to R trap Foraminal Compression Test Results +ve R Comments report of radiating pain to trapezius Upper Limb Tension Test Test Results +ve R Comments tingling numbness on R forearm / finger without c/s rotation Shoulder Special Tests Apprehension Test Test Results +VE R Comments pain noted at top of R shoulder AC Joint Compression Test Results -ve Passive ER Rotator Cuff Test Results +VE R Speed's Biceps Test Results -ve Soriano Raudel Impingement Test Results +VE R Comments pain noted at top of R shoulder Neer Impingement Test Results -ve R Empty Can Test Results -ve PT-OP-M Strength Start: 11/15/19 10:16 Freq: Status: Active Protocol: Document 11/11/19 16:00 (Rec: 11/15/19 10:57 [email or web address]) Shoulder Strength Shoulder Manual Muscle Testing Right Flexion 4+ Good+ Extension 5 Normal Abduction (C5) 4+ Good+ Adduction 5 Normal External Rotation 4+ Good+ Internal Rotation 4+ Good+ Left Flexion 5 Normal Extension 5 Normal Abduction (C5) 5 Normal Adduction 5 Normal External Rotation 5 Normal Internal Rotation 5 Normal PT-OP-Q Treatments Start: 11/15/19 10:16 Freq: Status: Active Protocol: Document 01/03/20 08:20 (Rec: 01/03/20 09:03 [id number]) Therapeutic Exercises Supine Exercises supine thoracic extension Side bilateral Equipment Used foam roller Reps/Minutes 10 x 2 Comments cues on thoracic extension only Prone Exercises prayer stretch Prone Exercise Name for shoulder flexion Side bilateral Equipment Used foam roller Reps/Minutes 8 x 2 Comments child pose position Sidelying Exercises open book Sidelying Exercise Name with cervical rotation Side bilateral Reps/Minutes 12 x 2 Comments no pain noted. Standing Exercises band pull apart Standing Exercise Name extended elbows, scap hor abd Side bilateral Reps/Minutes level 2 band 8 x2 Comments for new HEP scap retraction and extension Side bilateral Equipment Used PVC and level 2 band Reps/Minutes 8 x 2 Comments pain went away after 3 reps scap squeeze and extension Side bilateral Equipment Used level 1 band Reps/Minutes 8 x 2 Comments scap squeeze first then shoulder ext door stretch Standing Exercise Name with extended arms Side bilateral Reps/Minutes 12 x2 Manual Therapy Treatment Soft Tissue Mobilization Pec Body Location R pectoralis Mobilization Type Sustained Pressure,Trigger Point Release Intensity/Depth Moderate Body Position Supine Comments mild pain with pressure on proximal pec. Pain improved after manual work and able to increase R trunk rotation. Joint Mobilizations PA mob Joint TP and SP Direction PA Grade II Body Position Prone Reps/Duration 8 mins Comments PA mob for T1-T6 post glide Joint R GH joint Direction post Grade II Body Position Supine Reps/Duration 2 mins Comments with R ER PT-OP-T Assessment and Plan Start: 11/15/19 10:16 Freq: Status: Active Protocol: Document 01/03/20 08:20 (Rec: 01/03/20 09:03 [id number]) Physical Therapy Assessment Goals neck instability Impairment neck flexion hold 20s Creative Producer Goal (LTG) Pt will improve her deep cervical flexion strength and endurance > 40 s without discomfrot. LTG Duration 8 weeks special tests Impairment pt presents cervical radiculopathy signs on R shoulder Fdc Goal (LTG) 01/02 goal met Pt is now neurological symptoms free Pt will be symptoms free for special tests (UTTT, cervical facet joint test) in order to improve her neural tension to increase cervical and R UE mobility for functional activities LTG Duration 8 weeks ROM Impairment Pt has significant pain 9/10 to reach behind her back. Fdc Goal (LTG) 01/02 pt is able to reach T8 with minimal pain. Able to luci/doff her bra with minimal discomfort Pt will be able to reach the center of T4 with R arm in order to luci her clothes/ wash her back in symptoms free . LTG Duration 8 weeks Quickdash Impairment pt scores 38.64 on quickdash Short Term Goal (STG) Pt will score <30 on quickdash to improve her overall functional strength and mobility. STG Duration 4 weeks Creative Producer Goal (LTG) 01/02 did not assess Pt will score <20 on quickdash to improve her overall functional strength and mobility. LTG Duration 8 weeks Assessment Summary Assessment Pt que in her X ray result from last week. 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 Her orthopedist gave her a cortisone shot and recommended cont with PT because of her good progression. Pt has been showing improvements in pain and body awareness. She stated she is 75% better at this point and would cont benefit from skilled therapy for another month to strengthen her RTC and scap stabilizers. Physical Therapy Plan Frequency and Duration Frequency of Treatment 1x/Week Duration of Treatment 4 weeks Plan of Care Start Date 01/03/20 Plan of Care End Date 02/02/20 Next Visit Focus/Plan Next Note Type Treatment Note Next Visit Plan STM on R pec, post glide of GHJ, supraspinatur, T spine mobility neck stability ex, strengthening of scap hor abd, abd, scap squeeze and ext pull apart strengthening focused
--- NOTE | 2020-01-20 15:01 | PT.OTN ---
Current Diagnoses Pain in right shoulder (01/20/20) Physical Therapy Treatment Note PT-OP-A Visit Information Start: 11/15/19 10:16 Freq: Status: Active Protocol: Document 01/20/20 14:33 HH (Rec: 01/20/20 15:01 [id number]) Out-Patient Physical Therapy Visit Information Visit Information Visit Type Treatment Note Visit Start Time 14:31 Visit Stop Time 15:00 Total Visit Minutes 29 Visit Number 1/2 Number of CASHIER OFFICE Visits 0 PT-OP-B Current Condition Start: 11/15/19 10:16 Freq: Status: Active Protocol: Document 11/11/19 16:00 HH (Rec: 11/15/19 10:57 [email or web address]) Current Condition History of Current Condition Onset Date 2 years ago Current Complaints Chronic R shoulder pain, difficult to reach behind her back History of Current Condition Pt is a 49 yo female here with c/o worsening R shoulder pain 02/23 recently. Pt was here for PT last year for frozen shoulder and her symptoms did get better. However, she c/o her pain has been getting worse recently and she started having significant difficulty reaching behind her back. She described her pain as thobbing sensation located mostly at the top of her R shoulder. she currently has trouble washing her back, opening a tight jar, reaching behind to luci a jacket. She also feelssore to sleep on her R side. She does not c/o any tingling and numbess sensation down to her arm. 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 Pt recently went to see her PCP Dr. Chand who thinks she has RTC tendonopathy. Treatment Goals Patient/Caregiver Goals 1. To be able to reach behind her back fully Prior Functional Status Baseline Function- ADL's Independent Baseline Function- Mobility Independent Current Functional Impairments (Reported) Functional Limitations- ADL's unable to reach behind her back to luci a jacket/ wash behind her back. Personal Factors Other Personal Factors That May Effect Depression Therapy/Recovery DM II Per EMR, pt's fasting blood sugars have been 180-190 range , previously over 200. Pt has not been able to change her diet significantly. PT-OP-C Subjective Start: 11/15/19 10:16 Freq: Status: Active Protocol: Document 01/20/20 14:33 HH (Rec: 01/20/20 15:01 [id number]) OP-PT Subjective Patient Comments Patient Comments I havent had any sharp pain for awhile. Im not fearful for all my movements anymore. I can reach my back without problem anymore. Patient Reported Progress Improving PT-OP-E Functional Tests Start: 11/15/19 10:16 Freq: Status: Active Protocol: Document 11/11/19 16:00 (Rec: 11/15/19 10:57 [email or web address]) Functional Tests Apley's Scratch Test Action 2- Left spine of r scapular Action 2- Right spine of L scapular Action 3- Left center of T 5 Action 3- Right R PSIS PT-OP-F Manual Assessment Start: 11/15/19 10:16 Freq: Status: Active Protocol: Document 11/11/19 16:00 (Rec: 11/15/19 10:57 [email or web address]) Manual Assessments Soft Tissue Assessment Soft Tissue Mobility Assessment significant tenderness to pressure at distal supraspinatus tendon and infraspinatus c/o radiating pain to top of R shoulder with pressure on infraspinatus PT-OP-H Neuro Start: 11/15/19 10:16 Freq: Status: Active Protocol: Document 11/11/19 16:00 (Rec: 11/15/19 10:57 [email or web address]) Sensation Evaluation Gross Sensation Gross Sensation WNL Deep Tendon Reflex & Clonus Assessment Deep Tendon Reflex Tricep Deep Tendon Reflex 2+ Normal Bilateral Brachioradialis Deep Tendon Reflex 2+ Normal Bilateral Bicep Deep Tendon Reflex 2+ Normal PT-OP-K Range of Motion Start: 11/15/19 10:16 Freq: Status: Active Protocol: Document 11/11/19 16:00 (Rec: 11/15/19 10:57 [email or web address]) Cervical Spine Range of Motion Cervical Spine Active Percentage Testing Position Standing ROM Limitations Pain Comments WFL for AROm report of radiating pain to trapezius with extension and extension +rotation Shoulder Goniometric Range of Motion Shoulder Right Active Shoulder ROM WFL Yes External Rotation at 90 degrees 84 Abduction Left Active Shoulder ROM WFL Yes Shoulder ROM Limitations Comments pain noted with end range R shoulder ER (90 shoulder abd and in supine) PT-OP-L Special Tests Start: 11/15/19 10:16 Freq: Status: Active Protocol: Document 11/11/19 16:00 HH (Rec: 11/15/19 10:57 [email or web address]) Special Tests Cervical Spine Special Tests facet joint Test Results +VE B Comments report of radiating pain to trapezius with extension and extension +rotatio Spurling's Test Test Results +VE R Comments report of radiating pain to R trap Foraminal Compression Test Results +ve R Comments report of radiating pain to trapezius Upper Limb Tension Test Test Results +ve R Comments tingling numbness on R forearm / finger without c/s rotation Shoulder Special Tests Apprehension Test Test Results +VE R Comments pain noted at top of R shoulder AC Joint Compression Test Results -ve Passive ER Rotator Cuff Test Results +VE R Speed's Biceps Test Results -ve Soriano Raudel Impingement Test Results +VE R Comments pain noted at top of R shoulder Neer Impingement Test Results -ve R Empty Can Test Results -ve PT-OP-M Strength Start: 11/15/19 10:16 Freq: Status: Active Protocol: Document 11/11/19 16:00 (Rec: 11/15/19 10:57 [email or web address]) Shoulder Strength Shoulder Manual Muscle Testing Right Flexion 4+ Good+ Extension 5 Normal Abduction (C5) 4+ Good+ Adduction 5 Normal External Rotation 4+ Good+ Internal Rotation 4+ Good+ Left Flexion 5 Normal Extension 5 Normal Abduction (C5) 5 Normal Adduction 5 Normal External Rotation 5 Normal Internal Rotation 5 Normal PT-OP-Q Treatments Start: 11/15/19 10:16 Freq: Status: Active Protocol: Document 01/20/20 14:33 (Rec: 01/20/20 15:01 [id number]) Cardio Equipment Upper Body Ergometer (UBE) Duration (Minutes) 4 Other 30 sec fwd and bwd Therapeutic Exercises Supine Exercises chest press Side bilateral Equipment Used 6 lbs Reps/Minutes 10 x2 Sidelying Exercises SL abd Side right Equipment Used 2lbs Reps/Minutes 10 x2 scap hor abd Side right Equipment Used 2lbs Reps/Minutes 10 x2 Comments cues scap squeeze Sitting Exercises OH denia Sitting Exercise Name flexoin, abd, ext Side bilateral Reps/Minutes 6 mins Comments no discomfort PT-OP-T Assessment and Plan Start: 11/15/19 10:16 Freq: Status: Active Protocol: Document 01/20/20 14:33 HH (Rec: 01/20/20 15:01 [id number]) Physical Therapy Assessment Goals neck instability Impairment neck flexion hold 20s Alarm Signaler Goal (LTG) Pt will improve her deep cervical flexion strength and endurance > 40 s without discomfrot. LTG Duration 8 weeks special tests Impairment pt presents cervical radiculopathy signs on R shoulder Penitentiary Goal (LTG) 01/02 goal met Pt is now neurological symptoms free Pt will be symptoms free for special tests (UTTT, cervical facet joint test) in order to improve her neural tension to increase cervical and R UE mobility for functional activities LTG Duration 8 weeks ROM Impairment Pt has significant pain 9/10 to reach behind her back. Alarm Signaler Goal (LTG) 01/19 pt is able to reach T8 without pain. Able to luci/ doff her bra with minimal discomfort Pt will be able to reach the center of T4 with R arm in order to luci her clothes/ wash her back in symptoms free . LTG Duration 8 weeks Quickdash Impairment pt scores 38.64 on quickdash Short Term Goal (STG) Pt will score <30 on quickdash to improve her overall functional strength and mobility. STG Duration 4 weeks Alarm Signaler Goal (LTG) 01/19 pt scores 10 for quickdash Pt will score <20 on quickdash to improve her overall functional strength and mobility. LTG Duration 8 weeks Progress Towards Goals Progress Towards Goals Goals Met Assessment Summary Assessment Pt stated she is 90 % better and requested to be d/c from therapy. Pt currently has no pain and return to all her daily activities Physical Therapy Plan Discharge Physical Therapy Discharge Reasons Goals Met
== END 2020-01-21 15:35 ==
LOC: PHYS 14:30
PROVIDERS: PCP Family Medicine; Referring Provider Family Medicine; Visit Provider Family Medicine
DX: M25.511 Pain in right shoulder (principal)
CPT/HCPCS: 97110; 97140; 97162

== ENCOUNTER → 2020-01-31 08:08 | Outpatient (CLI) | payer OTHER, SELFPAY ==
--- NOTE | 2020-01-31 | DI.MG.S_ITS ---
BILATERAL DIGITAL SCREENING MAMMOGRAM 3D/2D WITH CAD: 01/31/2020 CLINICAL: Routine screening. Family history of breast cancer. Comparison is made to exams dated: 01/28/2019 mammogram, 07/15/2017 mammogram, and 01/17/2015 mammogram - [facility]. The tissue of both breasts is predominantly fatty. Current study was also evaluated with a Computer Aided Detection (CAD) system. No significant masses, calcifications, or other findings are seen in either breast. There has been no significant interval change. IMPRESSION: NEGATIVE There is no mammographic evidence of malignancy. A 1 year screening mammogram is recommended. This exam was interpreted at Station ID: [id number]. NOTE: For mammograms, a report in lay terms will be sent to the patient. Approximately 15% of breast malignancies will not be visualized mammographically. In the management of a palpable breast mass, a negative mammogram must not discourage biopsy of a clinically suspicious lesion. Electronically Signed By: Quan hull/leisa:01/31/2020 08:33:44 copy to: Leticia Leiva letter sent: Normal Exam ACR BI-RADS Category 1: Negative 3341F
== END ==
PROVIDERS: PCP Family Medicine; Referring Provider Family Medicine; Visit Provider Family Medicine
DX: Z12.31 Encounter for screening mammogram for malignant neoplasm of breast (principal); Z80.3 Family history of malignant neoplasm of breast
CPT/HCPCS: 77063; 77067

== ENCOUNTER → 2020-03-27 07:19 | Outpatient (CLI) | payer OTHER, SELFPAY ==
[2020-03-27 08:22] LABS: Hemoglobin A1C% w Est Avg Glu 6.9 % (4.0-6.0)
== END ==
PROVIDERS: PCP Family Medicine; Referring Provider Family Medicine; Visit Provider Family Medicine
DX: E11.9 Type 2 diabetes mellitus without complications (principal)
CPT/HCPCS: 36415; 83036

== ENCOUNTER → 2020-05-19 11:25 | Outpatient (CLI) | payer OTHER, SELFPAY ==
[2020-05-19 12:14] LABS: COVID19 -Nasal RAPID Negative (Negative)
== END ==
PROVIDERS: PCP Family Medicine; Visit Provider Obstetrics & Gynecology
DX: Z03.818 Encounter for observation for suspected exposure to other biological agents ruled out (principal)
CPT/HCPCS: 87635

== ENCOUNTER 2020-05-22 06:30 | Day surgery (SDC) | payer OTHER, SELFPAY ==
[2020-05-19 14:59] VITALS: BMI 37.9
[2020-05-22] VITALS (8 sets, daily range): BP systolic 124–152; BP diastolic 79–90; PULSE 59–81; RESP 10–16; TEMP 36.3–36.8; O2SAT 94–98; BMI 37.3
[2020-05-22] MEDS: LACTATED RINGERS 1,000 ML 100 ML IV (07:26)
--- NOTE | 2020-05-22 07:31 | SUR.OPER ---
Lithotomy on padded OR bed, head on pillow, arms secured on padded arm boards at <90 degrees abduction. Legs secured in padded yellow fins stirrups.
[2020-05-22] MEDS: CEFAZOLIN 2 GM/100 ML FROZ.PIGGY IV (07:50)
--- NOTE | 2020-05-22 07:51 | P.HP_ITS ---
History of Present Illness History of Present Illness Date Patient Seen: 05/22/20 Time Patient Seen: 07:51 Chief complaint: TVT W/CYSTOSCOPY Narrative: Patient is a 50-year-old 4 para 3 who presents for a TVT with cystoscopy due to stress urinary incontinence Patient History Medical History (Updated 05/02/20 @ 15:41 by Leticia Leiva MD) Depression (02/25/12) Hyperlipidemia (06/05/15) Hypertension Type 2 diabetes mellitus (02/25/12) Surgical History Status post arthroscopy Status post arthroscopy Status post delivery (09/14/02) Status post delivery (01/12/08) Status post laparoscopic cholecystectomy Status post tubal ligation (11/19/13) Family & Social History Family History Brother Age: 47 Colon polyps Grandfather Heart disease Grandmother Hypertension Social History: household members significant other Tobacco & Substance use: Smoking Status Never smoker alcohol intake current alcohol intake frequency holiday/special occasion Substance Use Type does not use Meds Home Medications and Allergies Home Medications Medication Instructions Recorded Confirmed Type citalopram 20 mg tablet 20 mg PO DAILY #90 tab 12/29/19 05/22/20 Rx empagliflozin 25 mg tablet 25 mg PO DAILY #90 tab 01/18/20 05/22/20 Rx metformin 1,000 mg tablet 1,000 mg PO BID #180 tab 02/24/20 05/22/20 Rx lisinopril 2.5 mg tablet See Rx Instructions .ROUTE 04/17/20 05/22/20 Rx .COMPLEX #90 tab atorvastatin 40 mg tablet See Rx Instructions .ROUTE 05/16/20 05/22/20 Rx .COMPLEX #90 tablet Allergies Allergy/AdvReac Type Severity Reaction Status Date / Time adhesive Allergy Mild RASH Verified 05/22/20 07:19 BLISTERS citalopram Allergy Mild ITCH (ONLY Verified 05/02/20 15:10 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 Lungs:Clear to auscultation bilaterally, no wheezes. Cardiovascular: Regular rate and rhythm, no murmurs, rubs, or gallops. Abdomen: Well-healed Pfannenstiel scars. No hepatosplenomegaly. No masses palpable. External genitalia: Normal Vagina: Increased urethrovesical angle with Valsalva Cervix: Normal Bimanual exam: 6 Week size anteverted uterus. Mobile.] No adnexal masses or tenderness Rectal: No masses. Assessment & Plan Assessment & Plan narrative: Assessment: 50-year-old 4 para 3 with stress urinary incontinence and increased urethrovesical angle with Valsalva Plan: TVT with cystoscopy The risks, benefits, and alternatives to the procedure were explained to the patient. The risks including bleeding, infection, injury to the bladder, or urethra. She understands these risks and agrees to proceed. A full par Q was held and consent form was signed. COVID-19 COVID-19 status: Negative Result date/Date tested (Pos, Neg/Pending): 05/19/20 Time Spent With Patient Time with patient: less than 15 minutes
--- NOTE | 2020-05-22 07:53 | PM.PREOP ---
Pre-operative Note COVID-19 COVID-19 status: Negative Result date/Date tested (Pos, Neg/Pending): 05/19/20 Interval Note History & Physical reviewed/Exam performed by Physician: Yes Changes to H&P: No H&P completed within 30 days and has changed as indicated here:: 05/22/2020
[2020-05-22] MEDS: BUPIVACAINE 0.25% (PF) VIAL 35 ML INJ (08:19)
--- NOTE | 2020-05-22 09:31 | PM.GYNOP.1 ---
Operative Date/Time/Diagnoses Date of procedure: 05/22/20 Time of procedure: 09:32 Pre-op diagnosis: Stress urinary incontinence Post-op diagnosis: same Procedure & Clinicians Procedure: Procedures Operation Date: 05/22/20 07:45 Actual Procedures Side Surgeon p TVT w/ cystoscopy Leticia Leiva MD Indications: Stress urinary incontinence Increased urethrovesical angle with Valsalva Surgeon: Leticia Leiva Anesthesia Type: General Operative Notes Findings: Increased urethrovesical angle with Valsalva Closure Type: primary Specimen(s): none Applied: catheter (To continuous drainage) Estimated blood loss (mL): 15 Blood products transfused: none Procedure in detail: After informed consent was obtained, the patient was taken to the operating room where she was placed in the dorsal supine position. After adequate general endotracheal anesthesia was achieved, she was placed in the dorsal lithotomy position, and prepped and draped in the usual sterile fashion. The patient was placed with her thighs parallel to the floor. A time-out was performed. A solution of 75 cc of 0.25% Marcaine with 25 cc of injectable saline were injected be hind the pubic symphysis using a spinal needle, into the space of Retzius. A weighted speculum was placed into the vagina. Allis clamps were placed lateral to the urethra, approximately 1.5 cm from the urethral meatus. The bladder was emptied. 4 cc of 0.25% Marcaine were injected under the mucosa. A 1 cm incision was made. The incision was dissected out laterally with the Villareal scissors. A rigid catheter was placed into the bladder. With the catheter against the patient's right thigh with the bladder neck retracted away from the right side, 10 cc of 0.25% Marcaine were injected along the proposed path of the TVT. This was repeated on the left side with the bladder neck retracted away from the patient's left side. Dilation with Hegar dilators to the # 7 was performed along the proposed tract of the TVT. With the rigid catheter against the patient's right thigh the TVT was directed towards the patient's right shoulder, perforating the urogenital diaphragm, and coming up behind the pubic symphysis and out the skin approximately 2 cm from the midline. This was repeated on the patient's left side with the bladder neck retracted away from the patient's left side. The TVT introducers were pulled up slightly through the skin. The rigid portion of the catheter was removed. The bladder was filled with 240 cc of sterile saline. A cystoscopy was performed which revealed the TVT catheters perforating the bladder. The bladder was emptied. The rigid catheter was placed again into the bladder and the bladder neck was retracted away from the patient's right side. The TVT was withdrawn and redirected on the patient's right side. The same was performed on the left side with the bladder neck retracted away from the patient's left side. The bladder was filled again with 240 cc of sterile saline. A cystoscopy was performed which revealed no cystotomy. The introducers were brought up through the skin. Villareal scissors were used under the urethra to prevent excess tension on the TVT. The plastic coverings of the TVT were removed with care to not overtighten the TVT. The TVT was cut below the skin level. A 16 Japanese Nunez catheter was placed into the bladder. Dermabond was used over the suprapubic incisions. The vaginal mucosa was closed with 3-0 Vicryl in running interlocking suture. Hemostasis was achieved. There was clear yellow urine coming into the Nunez bag. Sponge, lap, and instrument counts were correct x2. The patient tolerated the procedure well, and was taken to PACU in stable condition. Complications: none Post-operative Condition: stable Disposition: PACU Plan for aftercare: Home after recovery
[2020-05-22] MEDS: OXYCODONE/ACETAMINOPHEN 5/325 TABLET 1 TAB PO (09:38)
[2020-05-22] MEDS: ONDANSETRON 4 MG/2 ML INJ IV (09:39)
--- NOTE | 2020-05-22 09:52 | SUR.PHASEI ---
changed out large padilla bag to leg bag for home use. Patient instructed on padilla care and discharge paperwork provided pertinent to padilla catheter care at home.
--- NOTE | 2020-05-22 10:27 | SUR.PHASEII ---
Pt given all dc instructions and specific instructions on padilla care and changing of the bag from leg bag to bigger bag for night time. Sent home with dc instructions, bigger padilla bag, and alcohol swabs for cath care. Pt states feels comfortable now with padilla. Dallin Bell picking up rxs at [facility] then coming over to corn picker pt. Pt up and ambulating now gait steady, getting dressed now
--- NOTE | 2020-05-22 10:32 | SUR.PHASEII ---
Pt sitting up in now waiting for ride
== END 2020-05-22 10:50 | disposition home or self-care (01) ==
PROVIDERS: PCP Family Medicine; Referring Provider Family Medicine; Visit Provider Obstetrics & Gynecology
PROC: 0TSD0ZZ Reposition Urethra, Open Approach (ICD-10-PCS; CPT 57288; principal; 2020-05-22 07:45)
DX: N39.3 Stress incontinence (female) (male) (principal); E11.9 Type 2 diabetes mellitus without complications; I10 Essential (primary) hypertension; E78.5 Hyperlipidemia, unspecified; Z79.84 Long term (current) use of oral hypoglycemic drugs
CPT/HCPCS: 57288; C1771; J0330; J0690; J1100; J2250; J2405; J2704; J3010

== ENCOUNTER → 2020-07-18 08:15 | Outpatient (CLI) | payer OTHER, SELFPAY ==
[2020-07-18 09:41] LABS: Hemoglobin A1C% w Est Avg Glu 7.9 % (4.0-6.0)
== END ==
PROVIDERS: PCP Family Medicine; Referring Provider Family Medicine; Visit Provider Family Medicine
DX: E11.9 Type 2 diabetes mellitus without complications (principal)
CPT/HCPCS: 36415; 83036

== ENCOUNTER → 2020-10-13 07:05 | Outpatient (CLI) | payer OTHER, SELFPAY ==
[2020-10-13 07:50] LABS: Hemoglobin A1C% w Est Avg Glu 7.4 % (4.0-6.0)
== END ==
PROVIDERS: PCP Family Medicine; Referring Provider Family Medicine; Visit Provider Family Medicine
DX: E11.9 Type 2 diabetes mellitus without complications (principal)
CPT/HCPCS: 36415; 83036

== ENCOUNTER → 2021-01-16 07:06 | Outpatient (CLI) | payer OTHER, SELFPAY ==
[2021-01-16 08:41] LABS: Hemoglobin A1C% w Est Avg Glu 7.3 % (4.0-6.0)
[2021-01-16 08:50] LABS: Alanine Aminotransferase 31 IU/L (<35); Albumin 4.3 g/dL (3.5-5.0); Albumin Globulin Ratio 1.6 (1.0-2.8); Alkaline Phosphatase 102 U/L (38-126); Aspartate Aminotransferase 22 IU/L (14-36); BUN Creatinine Ratio 22.6 (6-22); Bilirubin Total 0.6 mg/dL (0.2-1.3); Blood Urea Nitrogen 12 mg/dL (7-17); Carbon Dioxide 24 mmol/L (22-32); Chloride 105 mmol/L (98-107); Cholesterol 162 mg/dL (140-199); Estimated Glomerular Filt Rate > 60.0 mL/min (>60); Globulin 2.7 g/dL (1.7-4.1); Glucose 166 mg/dL (70-100); HDL Cholesterol 48 mg/dL (40-60); HEMOLYSIS < 15 (0-50); LDL Cholesterol Calculated 94 mg/dL (<100); Potassium 4.4 mmol/L (3.4-5.1); Sodium 140 mmol/L (137-145); Triglycerides 100 mg/dL (35-150)
[2021-01-16 09:11] LABS: Creatinine Urine Random 70.5 mg/dL
[2021-01-16 09:15] LABS: Microalbumi Creatinin Ratio Ur 28.3 ug/mg CR (<30)
== END ==
PROVIDERS: PCP Family Medicine; Referring Provider Family Medicine; Visit Provider Family Medicine
DX: E11.9 Type 2 diabetes mellitus without complications (principal)
CPT/HCPCS: 36415; 80053; 80061; 82043; 82570; 83036

== ENCOUNTER → 2021-04-09 09:02 | Outpatient (CLI) | payer OTHER, SELFPAY ==
--- NOTE | 2021-04-09 | DI.MG.S_ITS ---
BILATERAL DIGITAL SCREENING MAMMOGRAM 3D/2D WITH CAD: 04/09/2021 CLINICAL: Routine screening. Family history of breast cancer. Comparison is made to exams dated: 01/31/2020 mammogram, 01/28/2019 mammogram, and 07/15/2017 mammogram - [facility]. The tissue of both breasts is predominantly fatty. Current study was also evaluated with a Computer Aided Detection (CAD) system. No significant masses, calcifications, or other findings are seen in either breast. There has been no significant interval change. IMPRESSION: NEGATIVE There is no mammographic evidence of malignancy. A 1 year screening mammogram is recommended. This exam was interpreted at Station ID: [id number]. NOTE: For mammograms, a report in lay terms will be sent to the patient. Approximately 15% of breast malignancies will not be visualized mammographically. In the management of a palpable breast mass, a negative mammogram must not discourage biopsy of a clinically suspicious lesion. Electronically Signed By: Nelly stewart/leisa:04/09/2021 10:33:05 copy to: Leticia Leiva letter sent: Normal Exam ACR BI-RADS Category 1: Negative 3341F
== END ==
PROVIDERS: PCP Family Medicine; Referring Provider Family Medicine; Visit Provider Family Medicine
DX: Z12.31 Encounter for screening mammogram for malignant neoplasm of breast (principal); Z80.3 Family history of malignant neoplasm of breast
CPT/HCPCS: 77063; 77067

== ENCOUNTER → 2021-05-18 07:50 | Outpatient (CLI) | payer OTHER, SELFPAY ==
[2021-05-18 08:29] LABS: Hemoglobin A1C% w Est Avg Glu 6.6 % (4.0-6.0)
== END ==
PROVIDERS: PCP Family Medicine; Referring Provider Family Medicine; Visit Provider Family Medicine
DX: E11.9 Type 2 diabetes mellitus without complications (principal)
CPT/HCPCS: 36415; 83036

== ENCOUNTER → 2021-05-25 09:27 | Outpatient (CLI) | payer OTHER, SELFPAY ==
[2021-05-25 12:05] LABS: COVID19 -Nasal RAPID Negative (Negative)
== END ==
PROVIDERS: PCP Family Medicine; Visit Provider Surgery
DX: Z01.812 Encounter for preprocedural laboratory examination (principal); Z20.822 Contact with and (suspected) exposure to COVID-19
CPT/HCPCS: 87635; C9803

== ENCOUNTER 2021-05-28 13:53 | Day surgery (SDC) | payer OTHER, SELFPAY ==
--- NOTE | 2021-05-28 | PATH_ITS ---
[facility] Accession Number: [id number] . 01 Material submitted: . colon - DISTAL TRANSVERSE COLON POLYP . 01 Clinical history: . SCREENING COLONOSCOPY . 02 Diagnosis: Distal Transverse Colon Polyp: Tubular adenoma. MRV 05/30/2021 1150 Local . 02 Electronically signed: . Diamond Hughes MD, Pathologist NPI- [id number] . 01 Gross description: . The specimen is received in formalin, labeled distal transverse colon polyp and consists of a 1.2 x 0.5 x 0.3 cm graham pedunculated polyp. The margin is inked blue. The specimen is bisected and entirely submitted in cassette A1. (EA:[id number]) /MRV 05/29/20211953 Local . 02 Pathologist provided ICD-10: K63.5 . 02 CPT . 728399 Performed at: 01 [facility] [address] [place] [id number] MD Facundo Coley MD Phone: [phone] Performed at: 02 [facility] [address] [place], [place] [id number] MD Lizbeth Louis MD Phone: [phone]
[2021-05-28 14:10] VITALS: BMI 36.8
[2021-05-28 14:17] VITALS: BP 131/81; PULSE 61; RESP 16; TEMP 36.9; O2SAT 97
[2021-05-28] MEDS: LACTATED RINGERS 1,000 ML 42 ML IV (14:30)
--- NOTE | 2021-05-28 15:34 | P.HP_ITS ---
History of Present Illness History of Present Illness Date Patient Seen: 05/28/21 Time Patient Seen: 15:34 Chief complaint: SCREENING COLONOSCOPY Narrative: Father of colon cancer and brother had cancer in a polyp. She has never had a colonoscopy before. Patient History Medical History (Updated 05/28/21 @ 15:35 by Trent Irvin MD) Depression (02/25/12) Hyperlipidemia (06/05/15) Hypertension Type 2 diabetes mellitus (02/25/12) Surgical History Status post arthroscopy Status post arthroscopy Status post delivery (09/14/02) Status post delivery (01/12/08) Status post laparoscopic cholecystectomy Status post tubal ligation (11/19/13) Family & Social History Family History Brother Age: 48 Colon polyps Grandfather Heart disease Grandmother Hypertension Social History: household members significant other Tobacco & Substance use: Smoking Status Never smoker alcohol intake current alcohol intake frequency holiday/special occasion Substance Use Type does not use Meds Home Medications and Allergies Home Medications Medication Instructions Recorded Confirmed Type lisinopril 2.5 mg tablet See Rx Instructions .ROUTE 10/23/20 05/28/21 Rx .COMPLEX #90 tab atorvastatin 40 mg tablet See Rx Instructions .ROUTE 11/29/20 05/28/21 Rx .COMPLEX #90 tab citalopram 20 mg tablet See Rx Instructions .ROUTE 01/18/21 05/28/21 Rx .COMPLEX #90 tab metformin 1,000 mg tablet See Rx Instructions .ROUTE 04/13/21 05/28/21 Rx .COMPLEX #180 tab empagliflozin 25 mg tablet 25 mg PO QAM 05/28/21 05/28/21 History (Jardiance) Allergies Allergy/AdvReac Type Severity Reaction Status Date / Time adhesive Allergy Mild RASH Verified 10/18/20 08:57 BLISTERS citalopram Allergy Mild ITCH (ONLY Verified 10/18/20 08:57 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 Time Spent With Patient Critical Care time: I spent a total of [] minutes of critical care time on this patient's care today; this time is exclusive of procedural time.
--- NOTE | 2021-05-28 15:35 | PM.PREOP ---
Pre-operative Note COVID-19 COVID-19 status: Negative Result date/Date tested (Pos, Neg/Pending): 05/25/21 Interval Note History & Physical reviewed/Exam performed by Physician: Yes Changes to H&P: No ASA Class (for procedural sedation): II
[2021-05-28] MEDS: MIDAZOLAM 5 MG/5 ML VIAL IV (15:40)
[2021-05-28] MEDS: fentaNYL 250 MCG/5 ML INJ IV (15:45)
[2021-05-28 15:57] VITALS: BP 148/88; PULSE 70; RESP 42; TEMP 36.2; O2SAT 96
--- NOTE | 2021-05-28 15:59 | PM.OP.COLON ---
Operative Date/Time/Diagnoses Date of procedure: 05/28/21 Time of procedure: 15:59 Pre-op diagnosis: Colonoscopy Post-op diagnosis: same Procedure & Clinicians Study performed: Colonoscopy Same procedure as scheduled: Yes Indications: Colon cancer screening and family history of colon cancer Surgeon: Trent Irvin Procedure Notes SCOAP/Timeout: Yes Procedure in detail: Procedure: The patient was brought to the endoscopy suite, placed in left lateral decubitus position. The patient was connected to monitoring devices. A time-out was performed. Sedation was administered. Once the patient was adequately sedated, a digital rectal exam was performed and was normal. The scope was then inserted and advanced to the cecum where the appendiceal orifice was identified and photographed. The scope was then slowly withdrawn over greater than 6 minutes. Mucosa was thoroughly inspected. There was 1 small polyp in the distal transverse colon which was removed with cold snare. There were a few scattered diverticula in the sigmoid colon. The scope was retroflexed in the rectum. No other abnormalities were noted. The scope was straightened and removed. The patient was awakened and brought to recovery. Versed: 5 mg Fentanyl: 150 mcg EBL: 1 mL Findings: Distal transverse colon polyp less than 1 cm Scope withdrawal time: 8 minutes Sedation minutes: 19 Findings: divertiulosis and polyp(s) Post-procedure Recommendations: Will call with biopsy results Disposition: PACU
[2021-05-28 16:02] VITALS: BP 141/75; PULSE 70; RESP 14; O2SAT 96
[2021-05-28 16:07] VITALS: BP 139/75; PULSE 70; RESP 16; O2SAT 97
[2021-05-28 16:16] VITALS: BP 142/74; PULSE 69; RESP 16; TEMP 36.6; O2SAT 98
== END 2021-05-28 16:25 | disposition home or self-care (01) ==
PROVIDERS: PCP Family Medicine; Referring Provider Surgery; Visit Provider Surgery
PROC: 0DJD8ZZ Inspection of Lower Intestinal Tract, Via Natural or Artificial Opening Endoscopic (ICD-10-PCS; CPT 45378; principal; 2021-05-28 15:15)
DX: Z12.11 Encounter for screening for malignant neoplasm of colon (principal); Z80.0 Family history of malignant neoplasm of digestive organs; F32.9 Major depressive disorder, single episode, unspecified; E78.5 Hyperlipidemia, unspecified; I10 Essential (primary) hypertension; E11.9 Type 2 diabetes mellitus without complications; Z79.84 Long term (current) use of oral hypoglycemic drugs; K57.30 Diverticulosis of large intestine without perforation or abscess without bleeding; D12.3 Benign neoplasm of transverse colon
CPT/HCPCS: 45385; 82962; 99152; J2250; J3010

== ENCOUNTER → 2021-11-15 07:54 | Outpatient (CLI) | payer OTHER, SELFPAY ==
[2021-11-15 08:52] LABS: Hemoglobin A1C% w Est Avg Glu 8.1 % (4.0-6.0)
[2021-11-15 09:13] LABS: Alanine Aminotransferase 36 IU/L (<35); Albumin 4.5 g/dL (3.5-5.0); Albumin Globulin Ratio 1.7 (1.0-2.8); Alkaline Phosphatase 98 U/L (38-126); Aspartate Aminotransferase 23 IU/L (14-36); Bilirubin Total 0.9 mg/dL (0.2-1.3); Blood Urea Nitrogen 18 mg/dL (7-17); Carbon Dioxide 27 mmol/L (22-32); Chloride 104 mmol/L (98-107); Cholesterol 158 mg/dL (140-199); Estimated Glomerular Filt Rate > 60 mL/min (>60); Globulin 2.7 g/dL (1.7-4.1); Glucose 171 mg/dL (70-100); HDL Cholesterol 46 mg/dL (40-60); HEMOLYSIS < 15 (0-50); LDL Cholesterol Calculated 83 mg/dL (<100); Sodium 140 mmol/L (137-145); Total Protein 7.2 g/dL (6.3-8.2); Triglycerides 145 mg/dL (35-150)
[2021-11-15 09:16] LABS: Creatinine Urine Random 69.8 mg/dL; Microalbumi Creatinin Ratio Ur 55.8 ug/mg CR (<30); Microalbumin Urine Random 3.9 mg/dL (0-1.6)
== END ==
PROVIDERS: PCP Family Medicine; Referring Provider Family Medicine; Visit Provider Family Medicine
DX: E11.9 Type 2 diabetes mellitus without complications (principal)
CPT/HCPCS: 36415; 80053; 80061; 82043; 82570; 83036

== ENCOUNTER → 2022-02-23 09:56 | Outpatient (CLI) | payer OTHER, SELFPAY ==
[2022-02-23 11:22] LABS: Hemoglobin A1C% w Est Avg Glu 7.4 % (4.0-6.0)
== END ==
PROVIDERS: PCP Family Medicine; Referring Provider Family Medicine; Visit Provider Family Medicine
DX: E11.9 Type 2 diabetes mellitus without complications (principal)
CPT/HCPCS: 36415; 83036

== ENCOUNTER → 2022-03-22 10:17 | Outpatient (CLI) | payer OTHER, SELFPAY ==
--- NOTE | 2022-03-22 10:19 | DI.MG.S_ITS ---
BILATERAL DIGITAL DIAGNOSTIC MAMMOGRAM 3D/2D: 03/22/2022 CLINICAL: Pain right breast.Due bilateral. Comparison is made to exams dated: 04/09/2021 mammogram, 01/31/2020 mammogram, and 01/28/2019 mammogram - [facility]. Both breasts are almost entirely fatty (category a/<25% glandular tissue). No significant masses, calcifications, or other findings are seen in either breast. IMPRESSION: NEGATIVE There is no abnormality seen in the right breast to correspond with the diffuse pain in the lateral aspect, however, clinical followup is recommended. There is no mammographic evidence of malignancy. A 1 year screening mammogram is recommended. Based on the Tyrer Cuzick model (a risk assessment model) the patient's lifetime risk is 5.0% and her 10 year risk is 1.3%. According to the ACR, ACS, and NCCN guidelines, an annual breast MRI exam along with mammogram is recommended if the patient's lifetime risk is 20% or greater. This exam was interpreted at Station ID: [id number]. NOTE: For mammograms, a report in lay terms will be sent to the patient. Approximately 15% of breast malignancies will not be visualized mammographically. In the management of a palpable breast mass, a negative mammogram must not discourage biopsy of a clinically suspicious lesion. Electronically Signed By: Deon lee/leisa:03/22/2022 14:04:52 copy to: Leticia Leiva letter sent: Clinical Evaluation ACR BI-RADS Category 1: Negative 3341F
== END ==
PROVIDERS: PCP Family Medicine; Referring Provider Family Medicine; Visit Provider Family Medicine
DX: N64.4 Mastodynia (principal)
CPT/HCPCS: 77066; G0279

== ENCOUNTER → 2022-05-29 07:09 | Outpatient (CLI) | payer OTHER, SELFPAY ==
[2022-05-29 09:49] LABS: Hemoglobin A1C% w Est Avg Glu 7.9 % (4.0-6.0)
== END ==
PROVIDERS: PCP Family Medicine; Referring Provider Family Medicine; Visit Provider Family Medicine
DX: E11.9 Type 2 diabetes mellitus without complications (principal)
CPT/HCPCS: 36415; 83036

== ENCOUNTER → 2022-09-20 08:30 | Outpatient (CLI) | payer OTHER, SELFPAY ==
[2022-09-21 06:09] LABS: x Labcorp Estim. Avg Glu (eAG) 217 mg/dL (.); x Labcorp Hemoglobin A1c 9.2 % (4.8-5.6)
== END ==
PROVIDERS: PCP Family Medicine; Referring Provider Family Medicine; Visit Provider Family Medicine
DX: E11.9 Type 2 diabetes mellitus without complications (principal)
CPT/HCPCS: 36415; 83036

== ENCOUNTER → 2022-12-19 07:53 | Outpatient (CLI) | payer OTHER, SELFPAY ==
[2022-12-19 09:33] LABS: Alanine Aminotransferase 37 IU/L (<35); Albumin 4.4 g/dL (3.5-5.0); Albumin Globulin Ratio 1.8 (1.0-2.8); Alkaline Phosphatase 92 U/L (38-126); Aspartate Aminotransferase 23 IU/L (14-36); BUN Creatinine Ratio 23.6 (6-22); Bilirubin Total 0.8 mg/dL (0.2-1.3); Blood Urea Nitrogen 13 mg/dL (7-17); Calcium 9.7 mg/dL (8.4-10.2); Carbon Dioxide 26 mmol/L (22-32); Chloride 102 mmol/L (98-107); Cholesterol 158 mg/dL (140-199); Estimated Glomerular Filt Rate > 60 mL/min (>60); Globulin 2.5 g/dL (1.7-4.1); Glucose 119 mg/dL (70-100); HDL Cholesterol 42 mg/dL (40-60); HEMOLYSIS < 15 (0-50); LDL Cholesterol Calculated 94 mg/dL (<100); Potassium 4.2 mmol/L (3.4-5.1); Sodium 137 mmol/L (137-145); Total Protein 6.9 g/dL (6.3-8.2); Triglycerides 112 mg/dL (35-150)
[2022-12-19 10:57] LABS: Creatinine Urine Random 103.5 mg/dL
[2022-12-19 11:02] LABS: Microalbumi Creatinin Ratio Ur 17.3 ug/mg CR (<30); Microalbumin Urine Random 1.8 mg/dL (0-1.6)
[2022-12-20 06:35] LABS: x Labcorp Estim. Avg Glu (eAG) 146 mg/dL (.); x Labcorp Hemoglobin A1c 6.7 % (4.8-5.6)
== END ==
PROVIDERS: PCP Family Medicine; Referring Provider Family Medicine; Visit Provider Family Medicine
DX: E11.9 Type 2 diabetes mellitus without complications (principal); E78.5 Hyperlipidemia, unspecified; I10 Essential (primary) hypertension
CPT/HCPCS: 36415; 80053; 80061; 82043; 82570; 83036

== ENCOUNTER → 2023-04-08 08:01 | Outpatient (CLI) | payer OTHER, SELFPAY ==
--- NOTE | 2023-04-08 | DI.MG.S_ITS ---
BILATERAL DIGITAL SCREENING MAMMOGRAM 3D/2D WITH CAD: 04/08/2023 CLINICAL: Routine screening. Family history of breast cancer. Comparison is made to exams dated: 03/22/2022 mammogram, 04/09/2021 mammogram, and 01/31/2020 mammogram - [facility]. Both breasts are almost entirely fatty (category a/<25% glandular tissue). Current study was also evaluated with a Computer Aided Detection (CAD) system. No significant masses, calcifications, or other findings are seen in either breast. There has been no significant interval change. IMPRESSION: NEGATIVE There is no mammographic evidence of malignancy. A 1 year screening mammogram is recommended. Based on the Tyrer Cuzick model (a risk assessment model) the patient's lifetime risk is 5.0% and her 10 year risk is 1.3%. According to the ACR, ACS, and NCCN guidelines, an annual breast MRI exam along with mammogram is recommended if the patient's lifetime risk is 20% or greater. This exam was interpreted at Station ID: [id number]. NOTE: For mammograms, a report in lay terms will be sent to the patient. Approximately 15% of breast malignancies will not be visualized mammographically. In the management of a palpable breast mass, a negative mammogram must not discourage biopsy of a clinically suspicious lesion. Electronically Signed By: Deon lee/leisa:04/08/2023 12:16:34 copy to: Leticia Leiva letter sent: Normal Exam ACR BI-RADS Category 1: Negative 3341F
== END ==
PROVIDERS: PCP Family Medicine; Referring Provider Family Medicine; Visit Provider Family Medicine
DX: Z12.31 Encounter for screening mammogram for malignant neoplasm of breast (principal); Z80.3 Family history of malignant neoplasm of breast
CPT/HCPCS: 77063; 77067

== ENCOUNTER → 2023-12-22 07:18 | Outpatient (CLI) | payer OTHER, SELFPAY ==
[2023-12-22 08:22] LABS: Hemoglobin A1C% w Est Avg Glu 7.1 % (4.0-6.0)
[2023-12-22 08:27] LABS: Alanine Aminotransferase 34 IU/L (<35); Albumin 4.4 g/dL (3.5-5.0); Albumin Globulin Ratio 1.7 (1.0-2.8); Alkaline Phosphatase 89 U/L (38-126); Aspartate Aminotransferase 24 IU/L (14-36); Bilirubin Total 0.9 mg/dL (0.2-1.3); Blood Urea Nitrogen 15 mg/dL (7-17); Calcium 8.5 mg/dL (8.4-10.2); Carbon Dioxide 24 mmol/L (22-32); Chloride 107 mmol/L (98-107); Cholesterol 183 mg/dL (140-199); Estimated Glomerular Filt Rate > 60 mL/min (>60); Globulin 2.6 g/dL (1.7-4.1); Glucose 206 mg/dL (70-100); HDL Cholesterol 44 mg/dL (40-60); HEMOLYSIS < 15 (0-50); LDL Cholesterol Calculated 110 mg/dL (<100); Sodium 139 mmol/L (137-145); Triglycerides 147 mg/dL (35-150)
[2023-12-22 08:28] LABS: Potassium 5.4 mmol/L (3.4-5.1)
[2023-12-22 09:03] LABS: Creatinine Urine Random 88.76 mg/dL
[2023-12-22 09:08] LABS: Microalbumin Urine Random 9.1 mg/dL (0-1.6)
== END ==
LOC: LAB 07:19
PROVIDERS: PCP Family Medicine; Referring Provider Family Medicine; Visit Provider Family Medicine
DX: E11.9 Type 2 diabetes mellitus without complications (principal)
CPT/HCPCS: 36415; 80053; 80061; 82043; 82570; 83036

== ENCOUNTER → 2024-03-11 07:40 | Outpatient (CLI) | payer OTHER, SELFPAY ==
[2024-03-11 09:29] LABS: BUN Creatinine Ratio 24.1 (6-22); Blood Urea Nitrogen 13 mg/dL (7-17); Calcium 9.9 mg/dL (8.4-10.2); Carbon Dioxide 26 mmol/L (22-32); Chloride 103 mmol/L (98-107); Estimated Glomerular Filt Rate > 60 mL/min (>60); Glucose 111 mg/dL (70-100); HEMOLYSIS < 15 (0-50); Sodium 137 mmol/L (137-145)
== END ==
PROVIDERS: PCP Family Medicine; Referring Provider Family Medicine; Visit Provider Family Medicine
DX: E87.5 Hyperkalemia (principal)
CPT/HCPCS: 36415; 80048

== ENCOUNTER → 2024-05-01 08:57 | Outpatient (CLI) | payer OTHER, SELFPAY ==
--- NOTE | 2024-05-01 08:58 | DI.MG.S_ITS ---
BILATERAL DIGITAL SCREENING MAMMOGRAM 3D/2D WITH CAD: 05/01/2024 CLINICAL: Routine screening. Family history of breast cancer. Comparison is made to exams dated: 04/08/2023 mammogram, 03/22/2022 mammogram, and 04/09/2021 mammogram - [facility]. The breasts are almost entirely fatty (category a/<25% glandular tissue). Current study was also evaluated with a Computer Aided Detection (CAD) system. No significant masses, calcifications, or other findings are seen in either breast. There has been no significant interval change. IMPRESSION: NEGATIVE There is no mammographic evidence of malignancy. A 1 year screening mammogram is recommended. Based on the Tyrer Cuzick model (a risk assessment model) the patient's lifetime risk is 4.9% and her 10 year risk is 1.4%. According to the ACR, ACS, and NCCN guidelines, an annual breast MRI exam along with mammogram is recommended if the patient's lifetime risk is 20% or greater. This exam was interpreted at Station ID: [id number]. NOTE: For mammograms, a report in lay terms will be sent to the patient. Approximately 15% of breast malignancies will not be visualized mammographically. In the management of a palpable breast mass, a negative mammogram must not discourage biopsy of a clinically suspicious lesion. Electronically Signed By: Quan hull/leisa:05/03/2024 07:22:58 copy to: Leticia Leiva letter sent: Normal Exam ACR BI-RADS Category 1: Negative
== END ==
PROVIDERS: PCP Family Medicine; Referring Provider Family Medicine; Visit Provider Family Medicine
DX: Z12.31 Encounter for screening mammogram for malignant neoplasm of breast (principal); Z80.3 Family history of malignant neoplasm of breast; R92.313 Mammographic fatty tissue density, bilateral breasts
CPT/HCPCS: 77063; 77067

== ENCOUNTER → 2024-07-23 12:08 | Day surgery (SDC) | payer OTHER, SELFPAY ==
[2024-07-23 12:46] VITALS: BP 134/78; PULSE 68; RESP 16; TEMP 36.6; O2SAT 97
--- NOTE | 2024-07-23 12:51 | P.HP_ITS ---
History of Present Illness History of Present Illness Date Patient Seen: 07/23/24 Time Patient Seen: 12:51 Chief complaint: Dx Colonoscopy w/poss bx Narrative: 54-year-old white female with a 12 mm transverse colon polyp removed 3 years ago, is also having abdominal pain in the right lower quadrant for over 1-2 months. She thinks it is stress related possibly irritable bowel syndrome she has not had any CT scans to assess for appendicitis or diverticulitis. She is here on the typical screening pathway rather than a diagnostic pathway. [facility] Medical History (Updated 07/23/24 @ 12:52 by Nimesh Hernandes MD) Personal history of colonic polyps (~2018) Hypertension Hyperlipidemia (06/05/15) Depression (02/25/12) Type 2 diabetes mellitus (02/25/12) Surgical History Status post delivery (01/12/08) Status post delivery (09/14/02) Status post arthroscopy Status post arthroscopy Status post tubal ligation (11/19/13) Status post laparoscopic cholecystectomy Family History Brother Age: 51 Colon polyps Grandfather Heart disease Grandmother Hypertension Social History household members: significant other Smoking Status: Never smoker alcohol intake: current substance use type: does not use Meds Home Medications and Allergies Home Medications Medication Instructions Recorded Confirmed Type citalopram 40 mg tablet 40 mg PO DAILY #90 tabs 09/29/23 06/22/24 Rx fluconazole 150 mg tablet 150 mg PO Q3D 2 doses #2 tabs 04/05/24 06/22/24 Rx pen needle, diabetic 31 gauge x #100 ea 05/21/24 06/22/24 Rx 3/16 (Droplet Pen Needle) dicyclomine 10 mg capsule 10 mg PO TID #90 caps 05/28/24 06/22/24 Rx liraglutide 0.6 mg/0.1 mL (18 mg/3 See Rx Instructions SUBCUT 05/31/24 06/22/24 Rx mL) subcutaneous pen injector .COMPLEX #9 mL sodium,potassium,mag sulfates 17.5 See Rx Instructions PO .COMPLEX 06/03/24 06/22/24 Rx gram-3.13 gram-1.6 gram oral soln #354 mL (Suprep Bowel Prep Kit) estradiol 0.5 mg tablet 0.5 mg PO DAILY #30 tabs 06/18/24 06/22/24 Rx progesterone micronized 100 mg 100 mg PO QAM #30 caps 06/18/24 06/22/24 Rx capsule atorvastatin 40 mg tablet 40 mg PO DAILY #90 tabs 07/05/24 Rx empagliflozin 25 mg tablet 25 mg PO DAILY #90 tabs 07/05/24 Rx (Jardiance) lisinopril 2.5 mg tablet 2.5 mg PO DAILY #90 tabs 07/05/24 Rx metformin 1,000 mg tablet 1,000 mg PO BID #180 tabs 07/05/24 Rx metformin 1,000 mg tablet 1,000 mg PO BID 07/23/24 07/23/24 History Allergies Allergy/AdvReac Type Severity Reaction Status Date / Time adhesive Allergy Mild RASH Verified 07/23/24 12:44 BLISTERS citalopram Allergy Mild ITCH (ONLY Verified 07/23/24 12:44 A [employer] DIRECT[employer]) Review of Systems Review of Systems ROS: Yes All systems reviewed with the patient and are negative except as otherwise documented Exam Vital Signs (past 8 hours): - 07/23/24 12:46 Temperature 98 F Pulse Rate 68 Respiratory Rate 16 Blood Pressure 134/78 Pulse Oximetry 97 Narrative Exam Narrative: Gen: NAD, sitting comfortably in bed, appears well HEENT: Sclera are anicteric, head is normocephalic and atraumatic, trachea is midline. CV: RRR, no JVD Resp: clear to auscultation bilaterally, equal chest wall movement bilaterally Abd: soft, nontender, normoactive bowel sounds Ext: no edema, full range of motion Neuro: Cranial nerves II-XII grossly intact, no focal deficits Skin: No erythema or ecchymosis Assessment & Plan Assessment and plan (1) Personal history of colonic polyps: Status: Acute Assessment & Plan narrative: Patient presents for colonoscopy Risks, benefits, alternatives to colonoscopy explained, including but not limited to bowel perforation or other serious complication requiring surgery at less than 1 in 5000 colonoscopies, abdominal pain, cramping or bleeding and less than 1% of colonoscopies, and the chances that we find a diagnosis that would require further intervention of about 2%. Patient agrees to proceed. Time-Based Coding :: [TOTAL MINUTES] spent with patient and on the chart (including review of chart, obtaining history, exam, reviewing outside data, placing orders, documenting exam and treatment plan, and counseling patient) on [DATE]. [employer] Document charge(s): No
--- NOTE | 2024-07-23 13:10 | PM.OP.COLON ---
Operative Date/Time/Diagnoses Date of procedure: 07/23/24 Time of procedure: 13:10 Pre-op diagnosis: Personal history of polyps, abdominal pain Post-op diagnosis: same (Diverticulosis) Procedure & Clinicians Study performed: Colonoscopy Same procedure as scheduled: Yes Indications: Colon screening Surgeon: Nimesh Hernandes Procedure Notes SCOAP/Timeout: Performed Procedure in detail: Time-out was performed. Mac was induced. Patient was placed in left lateral decubitus position. The perineum was inspected without any gross abnormality. Lubricated pediatric colonoscope was inserted and advanced to the cecum. The terminal ileum was intubated. The colonoscope was withdrawn slowly inspecting the circumference of the colon. Extensive sigmoid diverticulosis Very small polyps may have been missed, prep quality was adequate. Retroflexed view of the rectum showed small, non prolapsed nonbleeding internal hemorrhoids. The scope was withdrawn the patient was taken to PACU in good condition. Scope withdrawal time: 7 Sedation minutes: 12 Findings: divertiulosis and internal hemorrhoids Specimen(s): none sent Complications: none Post-procedure Recommendations: Colonoscopy in 10 years and High fiber diet Follow up: as needed Disposition: PACU
[2024-07-23 13:13] VITALS: BP 98/64; PULSE 69; RESP 10; TEMP 36.6; O2SAT 97
[2024-07-23 13:16] VITALS: BP 111/63; PULSE 78; RESP 12; TEMP 36.6; O2SAT 98
[2024-07-23 13:25] VITALS: BP 112/64; PULSE 62; RESP 12; TEMP 36.6; O2SAT 99
== END | disposition home or self-care (01) ==
PROVIDERS: PCP Family Medicine; Referring Provider Surgery; Visit Provider Surgery
PROC: 0DJD8ZZ Inspection of Lower Intestinal Tract, Via Natural or Artificial Opening Endoscopic (ICD-10-PCS; CPT 45378; principal; 2024-07-23 13:15)
DX: R10.9 Unspecified abdominal pain (principal); Z86.0100 Personal history of colon polyps, unspecified; K57.30 Diverticulosis of large intestine without perforation or abscess without bleeding; K64.8 Other hemorrhoids
CPT/HCPCS: 45378; J2704

== ENCOUNTER → 2024-10-06 14:40 | Outpatient (CLI) | payer OTHER, SELFPAY ==
--- NOTE | 2024-10-06 14:41 | DI.RAD.S_ITS ---
PROCEDURE: FL ARHTROGRAM KNEE RT INDICATIONS: primary osteoarthritis of rt knee COMPARISON: None. TECHNIQUE: Informed consent was obtained and the injection site was marked with ink. The patient, the procedure, and the site were confirmed during a pre-procedure huddle. Using sterile technique and fluoroscopic guidance, a 22 gauge needle was advanced through the skin into the right knee joint. Following intra-articular injection with 40 cc of a dilute gadolinium mixture (1:200 gadolinium diluted in equal parts 1% lidocaine and iodinated contrast) into the joint, the needle was removed, and hemostasis was obtained with direct pressure. There were no complications. Multiple images were obtained and archived. FINDINGS: There were no arthrographic abnormalities; a normal distribution of contrast in the joint was observed. IMPRESSION: Technically successful right knee arthrogram. The patient then had MR imaging. Please refer to the separate report for MRI findings. Dictated by: Lance Stover M.D. on 10/07/2024 at 8:27 Approved by: Lance Stover M.D. on 10/07/2024 at 8:29
--- NOTE | 2024-10-06 14:41 | DI.MRI.S_ITS ---
PROCEDURE: MR KNEE RT W CON INDICATIONS: primary osteoarthritis of rt knee TECHNIQUE: After the administration of 50 mL of dilute intra-articular Gadolinium contrast, sagittal T1 spin echo with fat saturation and PD fast spin echo with fat saturation, coronal T1 spin echo with and without fat saturation, coronal T2 fast spin echo with fat saturation, axial PD fast spin echo with fat saturation through the knee. COMPARISON: [facility], CR, XR KNEE ARTHRITIC SERIES RT, 05/04/2024, 9:08. FINDINGS: Image quality: Excellent. Menisci: Truncated appearance of medial meniscus suggestive of prior partial medial meniscectomy versus chronic complex tear. Signal abnormality and contrast extension are noted involving anterior and posterior horn remanent of medial meniscus extending to both superior and inferior articulating surfaces suggestive of recurrent tear. Focal vertical tear involving anterior horn/body junction of lateral meniscus is also seen extending to both superior and inferior articulating surfaces with contrast extension. Cruciate ligaments: The anterior cruciate ligament is thickened with intrasubstance T2 hyperintense signal. The posterior cruciate ligament is thickened. Medial structures: Moderate grade intrasubstance partial-thickness tear involving medial collateral ligament is seen with intrasubstance T2 hyperintense signal and surrounding edema. Visualized portions of the pes anserinus tendons appear normal. No abnormal bursal fluid. Lateral structures: Low-grade partial-thickness tear involving proximal lateral collateral ligament at its femoral insertion is seen. The long and short heads of the biceps femoris tendon appear intact. The popliteus tendon appears normal. Iliotibial band appears normal. Anterior structures: The quadriceps tendon is intact. Postsurgical changes from prior arthroscopic surgery are noted within patellar tendon. Patellar alignment is normal. Bone and cartilage: No bone marrow contusions or fractures. Moderate to severe tricompartmental osteoarthritis and chondromalacia is seen most notably involving medial femoral tibial compartment. Joint space: Small lobulated Long's cyst measures 2 x 2 x 3.4 cm in size. Normal appearing synovial plicae are incidentally noted. No intra-articular bodies. IMPRESSION: 1. Moderate to severe tricompartmental osteoarthritis and chondromalacia most notably in medial femoral tibial compartment. No fracture or dislocation. No intra-articular loose bodies. 2. Suggestion of prior partial medial meniscectomy. Suggestion of recurrent tear involving anterior horn and posterior horn remanent of medial meniscus extending to both superior and inferior articulating surfaces. 3. Suggestion of focal vertical tear involving anterior horn/body junction of lateral meniscus extending to both superior and inferior articulating surfaces. 4. Sprain/low-grade intrasubstance partial-thickness tear involving ACL. No ACL rupture. Degenerative changes versus low-grade sprain involving PCL. No PCL rupture. 5. Moderate grade intrasubstance partial-thickness tear involving MCL. Low to moderate grade partial-thickness tear involving proximal LCL. Dictated by: Enoch Santana M.D. on 10/07/2024 at 16:27 Approved by: Enoch Santana M.D. on 10/07/2024 at 16:34
[2024-10-06] MEDS: LIDOCAINE 1% 20 ML INJ (15:39)
[2024-10-06] MEDS: SODIUM CHLORIDE 0.9 % 20 ML VIAL IV ×2 (15:40)
== END ==
PROVIDERS: PCP Family Medicine; Referring Provider Orthopaedic Surgery; Visit Provider Orthopaedic Surgery
DX: M17.11 Unilateral primary osteoarthritis, right knee (principal); M94.261 Chondromalacia, right knee; S83.511A Sprain of anterior cruciate ligament of right knee, initial encounter; S83.411A Sprain of medial collateral ligament of right knee, initial encounter; S83.421A Sprain of lateral collateral ligament of right knee, initial encounter
CPT/HCPCS: 27369; 73580; 73722; A9579; Q9967

== ENCOUNTER → 2024-11-17 11:40 | Outpatient (CLI) | payer OTHER, SELFPAY ==
[2024-11-17 12:39] LABS: Erythrocyte Sedimentation Rate 7 MM/HR (0-20)
[2024-11-17 14:15] LABS: C-Reactive Protein Quant < 0.5 mg/dL (<1.0)
[2024-11-17 14:18] LABS: Rheumatoid Factor < 8.6 IU/mL (<12.0)
[2024-11-19 11:35] LABS: CCP Antibodies IgG/IgA 0 units (0-19)
== END ==
PROVIDERS: PCP Family Medicine; Referring Provider Family Medicine; Visit Provider Family Medicine
DX: M79.641 Pain in right hand (principal); M79.642 Pain in left hand
CPT/HCPCS: 36415; 85651; 86140; 86200; 86430

== ENCOUNTER → 2025-04-04 07:46 | Outpatient (CLI) | payer OTHER, SELFPAY | LOC: PHYS 07:47 | PROVIDERS: Family Provider Family Medicine; PCP Family Medicine; Referring Provider Family Medicine; Visit Provider Family Medicine | DX: M79.641 Pain in right hand (principal); M79.642 Pain in left hand | CPT/HCPCS: 95885; 95886; 95912 ==

== ENCOUNTER → 2025-05-23 08:04 | Outpatient (CLI) | payer OTHER, SELFPAY ==
--- NOTE | 2025-05-23 08:05 | DI.MG.S_ITS ---
MM screening mammo BI: 05/23/2025. BI-RADS: 1 CLINICAL: 55-year old female for bilateral screening mammogram. Tyrer-Cuzick lifetime risk of 5.4%. No personal or first-degree family history of breast cancer. PRIOR EXAMS: 05/01/2024, 04/08/2023, 03/22/2022, 04/09/2021. MAMMOGRAPHY TECHNIQUE: 2D and 3D (tomosynthesis) digital mammographic views obtained, with additional images as needed for full coverage. Current study was also evaluated with a Computer Aided Detection (CAD) system. DENSITY A. The breasts are almost entirely fatty. MAMMOGRAPHY FINDINGS Bilateral: No suspicious mass, asymmetry, microcalcification, or other abnormality seen. IMPRESSION: * No evidence of malignancy. RECOMMENDATIONS Bilateral * Annual screening mammography. OVERALL ASSESSMENT CATEGORY BI-RADS-1: Negative. The [employer] recommends annual screening mammography beginning at age 40 for women with average risk of breast cancer. ELECTRONICALLY SIGNED: Toya Sharp M.D. on 05/23/2025 at 10:05:05 PM PT Interpreting Station ID: [id number]
== END ==
PROVIDERS: Family Provider Family Medicine; PCP Family Medicine; Referring Provider Family Medicine; Visit Provider Family Medicine
DX: Z12.31 Encounter for screening mammogram for malignant neoplasm of breast (principal); R92.313 Mammographic fatty tissue density, bilateral breasts
CPT/HCPCS: 77063; 77067